=== PATIENT | male | born 1930 | race Hispanic/Latino ===

== ENCOUNTER 2017-09-01 10:50 | Emergency (ER) | payer MEDICARE ==
[2017-09-01 10:50] VITALS: PULSE 110; BMI 24.3
--- NOTE | 2017-09-01 11:20 | ED PDOC ---
Arrival/HPI - General Historian: Patient - History of Present Illness Time/Duration: 4-6 hours Symptom Onset: Sudden Symptom Course: Worsening - General Chief Complaint: GI Problem Time Seen by Provider: 09/01/17 11:10 - History of Present Illness Narrative History of Present Illness (Text): 09/01/17 12:16 CC: constipation and urinary retention Patient states he usually goes to the bathroom twice a day and lately has been having more watery bowel movements. Patient states he hard a small hard bowel movement at 4am this morning and then has not been able to urinate since. Patient states his last colonoscopy was awhile ago and they found polyps. Patient also states he goes to Dr. Bolanos and had free PSA read that was in 50s. Patient denied abdominal surgeries. Patient denies fever, chills, nausea, vomiting, diarrhea Patient admits to abdominal pain and pressure in pelvic region PMH: CAD, , HTN, DM2, Asthma and Arthritis had triple-vessel CABG, aortic valve replacement and insertion of Mitral Valve ring at [facility] ( November 02, 2014 for symptomatic heart failure), enlarged prostate, colon polyps Family history: cancer (Radha Villegas) Past Medical History - Provider Review Nursing Documentation Reviewed: Yes - Infectious Disease Hx of Infectious Diseases: None - Tetanus Immunization Tetanus Immunization: Unknown - Cardiac Hx Pacemaker: No - Pulmonary Hx Asthma: Yes - Neurological Hx Paralysis: No - HEENT Hx HEENT Disorder: No - Renal Hx Renal Disorder: No - Endocrine/Metabolic Hx Diabetes Mellitus Type 2: Yes - Hematological/Oncological Hx Blood Transfusions: No Hx Blood Transfusion Reaction: No - Integumentary Hx Dermatological Disorder: No - Musculoskeletal/Rheumatological Hx Musculoskeletal Disorders: Yes - Gastrointestinal Hx Gastrointestinal Disorders: No - Genitourinary/Gynecological Hx Genitourinary Disorders: No - Psychiatric Hx Emotional Abuse: No Hx Physical Abuse: No Hx Substance Use: No - Surgical History Hx Coronary Artery Bypass Graft: Yes - Anesthesia Hx Anesthesia Reactions: No Hx Malignant Hyperthermia: No - Suicidal Assessment Feels Threatened In Home Enviroment: No Family/Social History - Physician Review Nursing Documentation Reviewed: Yes Family/Social History: Unknown Family HX Smoking Status: Never Smoked Hx Alcohol Use: No Hx Substance Use: No Allergies/Home Meds Allergies/Adverse Reactions: Allergies No Known Allergies Allergy (Verified 09/01/17 11:33) Home Medications: Home Meds Medication Instructions Recorded Confirmed Atorvastatin Calcium [Lipitor] 10 mg PO QPM 10/12/14 02/08/17 Losartan [Cozaar] 50 mg PO QPM 10/12/14 02/08/17 [place]-3 Fatty Acids/Fish Oil [Fish 3 cap PO DAILY 10/26/14 02/08/17 Oil 1,000 mg Capsule] Aspirin [Ecotrin] 81 mg PO DAILY 02/10/16 05/11/16 Calcium Cit/Mgox/Vit D3/B6/Min 1 each PO BID 02/10/16 02/08/17 [Calcium Citrate Plus Tablet] Magnesium Oxide/Magnesium 300 mg PO DAILY 02/10/16 02/08/17 [Magnesium Elemental] Metoprolol Tartrate [Lopressor] 25 mg PO QPM 02/10/16 02/08/17 Metoprolol Tartrate [Lopressor] 37.5 mg PO QAM 02/10/16 02/08/17 SITagliptin [Januvia] 100 mg PO QAM 02/10/16 02/08/17 metFORMIN [glucOPHAGE] 500 mg PO BID 02/10/16 02/08/17 Review of Systems - Review of Systems Constitutional: absent: Fatigue, Weight Change, Fevers, Night Sweats Eyes: absent: Vision Changes, Photophobia, Eye Pain ENT: absent: Hearing Changes, Tinnitus, TMJ Pain Respiratory: absent: SOB, Cough, Sputum, Wheezing Cardiovascular: absent: Chest Pain, Palpitations, Edema Gastrointestinal: Abdominal Pain, Stool Changes, Constipation. absent: Diarrhea , Nausea, Vomiting, Appetite Changes, Hematochezia, Hematemesis, Anorexia, Food Intolerance Genitourinary Male: Urinary Output Changes Musculoskeletal: absent: Arthralgias, Back Pain, Neck Pain, Joint Swelling Skin: absent: Rash, Pruritis, Skin Lesions, Laceration, Abscess Neurological: absent: Headache, Dizziness, Focal Weakness Endocrine: absent: Diaphoresis, Polyuria, Polydipsia Physical Exam Vital Signs Reviewed: Yes Temperature: Afebrile Blood Pressure: Normal Pulse: Regular Respiratory Rate: Normal Appearance: Positive for: Uncomfortable Pain Distress: Moderate Mental Status: Positive for: Alert and Oriented X 3. No: Confused, Agitated, Lethargic - Systems Exam Head: Present: Atraumatic, Normocephalic Pupils: Present: PERRL Extroacular Muscles: Present: EOMI Conjunctiva: Present: Normal Mouth: Present: Moist Mucous Membranes. No: Dry, Drooling, Trismus Pharnyx: Present: Normal. No: ERYTHEMA, EXUDATE, TONSILS ENLARGED Nose (External): Present: Atraumatic. No: Abrasion, Contusion, Laceration Neck: Present: Normal Range of Motion, Trachea Midline. No: Meningeal Signs, MIDLINE TENDERNESS, JVD Respiratory/Chest: Present: Clear to Auscultation, Good Air Exchange. No: Respiratory Distress, Accessory Muscle Use Cardiovascular: Present: Regular Rate and Rhythm, Normal S1, S2. No: Murmurs Abdomen: Present: Tenderness (right lower and left lower quadrant), Distention. No: Normal Bowel Sounds (hypoactive bowel sounds in all four quadrants) Back: No: CVA Tenderness, Midline Tenderness, Paraspinal Tenderness Upper Extremity: Present: Normal Inspection, Normal ROM, NORMAL PULSES, Capillary Refill < 2s. No: Edema Lower Extremity: Present: Normal Inspection, NORMAL PULSES, Normal ROM, Capillary Refill < 2 s. No: Edema Neurological: Present: GCS=15, CN II-XII Intact, Speech Normal, Motor Func Grossly Intact, Normal Sensory Function Skin: Present: Warm, Normal Color. No: Dry, Rashes Psychiatric: Present: Alert, Oriented x 3, Normal Insight, Normal Concentration Medical Decision Making ED Course and Treatment: 09/01/17 12:22 insertion of toro, 750cc initial output 09/01/17 12:24 Patient's abdomen re-evaluated, the pressure is much less, no guarding, abdomen still feels distended due to constipation Miralax 17gm ordered NS @50cc/hr High Fiber diet by [facility] Printed and handed to patient. (Radha Villegas) Seen and examined with resident. 87 y/o M c PMHx BPH p/w urinary retention with constipation. Patient was recently on a cough medication which possibly had codeine in it. Patient without abdominal surgeries in past, vomiting, or fever. Toro placed with significant amount of nonbloody urine drained. Afterwards, no abdominal tenderness, no rebound, no guarding. Patient has follow up scheduled with urology Dr. Jeffries. Instructed to return to ED for worsening abdominal pain or vomiting or fever. (Jon Grajeda) - Medication Orders Current Medication Orders: Discontinued Medications Docusate Sodium (Colace Liquid) 100 mg PO ONCE ONE Stop: 09/01/17 12:21 Last Admin: 09/01/17 12:38 Dose: 100 mg Sodium Chloride (Sodium Chloride 0.9%) 1,000 mls @ 50 mls/hr IV .Q20H MERY Last Admin: 09/01/17 12:39 Dose: 50 mls/hr eMAR Start Stop Document 09/01/17 12:39 LA (Rec: 09/01/17 12:39 LA [facility]-[id number]) Intravenous Solution Start Date 09/01/17 Start Time 12:39 Metoclopramide HCl (Reglan) 10 mg PO STAT STA Stop: 09/01/17 11:57 Last Admin: 09/01/17 12:38 Dose: 10 mg Polyethylene Glycol (Miralax) 17 gm PO STAT STA Stop: 09/01/17 11:56 Disposition/Present on Arrival - Present on Arrival Any Indicators Present on Arrival: No History of DVT/PE: No History of Uncontrolled Diabetes: No Urinary Catheter: No History Surgical Site Infection Following: None - Disposition Have Diagnosis and Disposition been Completed?: Yes Disposition Time: 12:37 Patient Plan: Discharge - Disposition Diagnosis: BPH (benign prostatic hyperplasia), Constipation, Urinary retention due to benign prostatic hyperplasia Disposition: HOME/ ROUTINE Patient Problems: Current Active Problems Problem Status Onset BPH (benign prostatic hyperplasia) Acute Constipation Acute Urinary retention due to benign prostatic hyperplasia Acute Condition: IMPROVED Print Language: DIVEHI Additional Instructions: follow up with Urologist Dr. Jeffries to remove toro and further management of enlarged prostate follow up with Dr. Juarez for further workup for management of constipation eat foods high in fiber return to ED if fever, chills, nausea, vomiting, weakness, extreme abdominal pain, blood in urine and blood in stool drink fluids, drink fluids with electrolytes Prescriptions: Docusate Sodium [Colace] 100 mg PO TID #9 capsule Polyethylene Glycol 3350 [Miralax] 119 gm PO TID PRN #1 powder PRN Reason: Constipation Referrals: Jose Moreland MD [Primary Care Provider] - Follow up with primary Forms: [employer] (Polish)
[2017-09-01] MEDS ORDERED: Bisacodyl 5mg EC Tab PO ONE (12:20)
[2017-09-01] MEDS: Sodium Chloride 0.9% 1,000 ML IV SCH (12:39)
[2017-09-01] MEDS: POLYETHYLENE GLYCOL 3350 17 GM/Dose PACKET PO STA (12:55)
== END 2017-09-01 13:29 | disposition home or self-care (01) ==
LOC: ED 10:50
DX: N40.1 Benign prostatic hyperplasia with lower urinary tract symptoms (principal); R33.8 Other retention of urine; K59.00 Constipation, unspecified
CPT/HCPCS: 99283; J7040

== ENCOUNTER 2017-09-06 01:35 | Emergency (ER) | payer MEDICARE ==
[2017-09-06 01:35] VITALS: PULSE 110; BMI 23.5
--- NOTE | 2017-09-06 01:55 | ED PDOC ---
Arrival/HPI - General Chief Complaint: Male Genitourinary Time Seen by Provider: 09/06/17 01:48 Historian: Patient - History of Present Illness Narrative History of Present Illness (Text): 09/06/17 01:54 Hayder Butts is an 87 year old male, with a past medical history includes BPH , who presents to the Emergency department complaining of urinary retention. Patient has a toro in place, but notes it has not drained any urine and leg bag is empty. Patient denies any fever, chills, nausea, vomiting, diarrhea, dysuria, back pain, or any other complaints. Time/Duration: Other (yesterday) Symptom Onset: Gradual Symptom Course: Unchanged Activities at Onset: Light Context: Home Past Medical History - Provider Review Nursing Documentation Reviewed: Yes - Past History Past History: Non-Contributing - Infectious Disease Hx of Infectious Diseases: None - Tetanus Immunization Tetanus Immunization: Unknown - Past Medical History Past Medical History: Non-Contributing - Cardiac Hx Hypertension: Yes Hx Pacemaker: No - Pulmonary Hx Asthma: Yes - Neurological Hx Paralysis: No - HEENT Hx HEENT Disorder: No - Renal Hx Renal Disorder: No - Endocrine/Metabolic Hx Diabetes Mellitus Type 2: Yes - Hematological/Oncological Hx Blood Transfusions: No Hx Blood Transfusion Reaction: No - Integumentary Hx Dermatological Disorder: No - Musculoskeletal/Rheumatological Hx Musculoskeletal Disorders: Yes - Gastrointestinal Hx Gastrointestinal Disorders: No - Genitourinary/Gynecological Hx Genitourinary Disorders: Yes Hx Prostate Problems: Yes - Psychiatric Hx Emotional Abuse: No Hx Physical Abuse: No Hx Substance Use: No - Surgical History Hx Coronary Artery Bypass Graft: Yes - Anesthesia Hx Anesthesia: Yes Hx Anesthesia Reactions: No Hx Malignant Hyperthermia: No - Suicidal Assessment Feels Threatened In Home Enviroment: No Family/Social History - Physician Review Nursing Documentation Reviewed: Yes Family/Social History: Unknown Family HX Smoking Status: Never Smoked Hx Alcohol Use: No Hx Substance Use: No Allergies/Home Meds Allergies/Adverse Reactions: Allergies No Known Allergies Allergy (Verified 09/06/17 01:55) Home Medications: Home Meds Medication Instructions Recorded Confirmed Atorvastatin Calcium [Lipitor] 10 mg PO QPM 10/12/14 09/06/17 Losartan [Cozaar] 50 mg PO QPM 10/12/14 09/06/17 [place]-3 Fatty Acids/Fish Oil [Fish 3 cap PO DAILY 10/26/14 09/06/17 Oil 1,000 mg Capsule] Aspirin [Ecotrin] 81 mg PO DAILY 02/10/16 09/06/17 Calcium Cit/Mgox/Vit D3/B6/Min 1 each PO BID 02/10/16 09/06/17 [Calcium Citrate Plus Tablet] Magnesium Oxide/Magnesium 300 mg PO DAILY 02/10/16 09/06/17 [Magnesium 300 mg Capsule] Metoprolol Tartrate [Lopressor] 25 mg PO QPM 02/10/16 09/06/17 Metoprolol Tartrate [Lopressor] 37.5 mg PO QAM 02/10/16 09/06/17 SITagliptin [Januvia] 100 mg PO QAM 02/10/16 09/06/17 Review of Systems - Physician Review All systems were reviewed & negative as marked: Yes - Review of Systems Constitutional: Normal. absent: Fevers Eyes: Normal ENT: Normal Respiratory: Normal. absent: SOB Cardiovascular: Normal. absent: Chest Pain Gastrointestinal: Normal Genitourinary Male: Urinary Output Changes (+urinary retention). absent: Dysuria Musculoskeletal: Normal. absent: Back Pain, Neck Pain Skin: Normal. absent: Rash Neurological: Normal. absent: Headache, Dizziness Endocrine: Normal Hemo/Lymphatic: Normal Psychiatric: Normal Physical Exam Vital Signs Reviewed: Yes Vital Signs Pulse Resp BP Pulse Ox 09/06/17 04:38 71 18 166/99 H 100 09/06/17 01:56 77 20 219/98 H 100 Temperature: Afebrile Blood Pressure: Hypertensive Pulse: Regular Respiratory Rate: Normal Appearance: Positive for: Well-Appearing, Non-Toxic Pain Distress: None Mental Status: Positive for: Alert and Oriented X 3 - Systems Exam Head: Present: Atraumatic, Normocephalic Pupils: Present: PERRL Extroacular Muscles: Present: EOMI Conjunctiva: Present: Normal Mouth: Present: Moist Mucous Membranes Neck: Present: Normal Range of Motion Respiratory/Chest: Present: Clear to Auscultation, Good Air Exchange. No: Respiratory Distress, Accessory Muscle Use Cardiovascular: Present: Regular Rate and Rhythm, Normal S1, S2. No: Murmurs Abdomen: Present: Normal Bowel Sounds. No: Tenderness, Distention, Peritoneal Signs Genitourinary Male: Present: Other (Toro catheter in place) Back: Present: Normal Inspection Upper Extremity: Present: Normal Inspection. No: Cyanosis, Edema Lower Extremity: Present: Normal Inspection. No: Edema Neurological: Present: GCS=15, CN II-XII Intact, Speech Normal Skin: Present: Warm, Dry, Normal Color. No: Rashes Psychiatric: Present: Alert, Oriented x 3, Normal Insight, Normal Concentration Medical Decision Making ED Course and Treatment: 09/06/17 01:55 Impression: 87 year old male presents to the emergency department with urinary retention. Toro catheter in place not draining urine. Plan: -- Toro catheter -- Reassess and disposition Prior Visits: Notes and results from previous visits were reviewed. On 09/03/2017, pt was seen in the Emergency department for urinary retention and constipation. Pt was admitted to the hospital for further evaluation. Progress Notes: Toro catheter flushed with normal saline by RN. Clots removed, draining 600 cc of urine. Pt tolerated procedure well, reports relief. 09/06/17 06:27 On re-evaluation, patient feels better and is in no acute distress. Patient is stable for discharge. Patient was instructed to follow up with physician or return if symptoms worsen or new concerning symptoms arise. - Scribe Statement The provider has reviewed the documentation as recorded by the Kaila Granados training under Jewels Rinaldi All medical record entries made by the Scribe were at my direction and personally dictated by me. I have reviewed the chart and agree that the record accurately reflects my personal performance of the history, physical exam, medical decision making, and the department course for this patient. I have also personally directed, reviewed, and agree with the discharge instructions and disposition. Disposition/Present on Arrival - Present on Arrival Any Indicators Present on Arrival: No History of DVT/PE: No History of Uncontrolled Diabetes: No Urinary Catheter: No History Surgical Site Infection Following: None - Disposition Have Diagnosis and Disposition been Completed?: Yes Diagnosis: Urinary retention Disposition: HOME/ ROUTINE Disposition Time: 06:32 Condition: GOOD Discharge Instructions (ExitCare): Urinary Retention in Men (ED), Toro Catheter Placement and Care (ED) Prescriptions: Ciprofloxacin HCl [Cipro] 250 mg PO BID #14 tab Tamsulosin [Flomax] 0.4 mg PO DAILY #30 cap Finasteride [Proscar] 5 mg PO DAILY #30 tab Referrals: Jose Moreland MD [Primary Care Provider] - Follow up with primary Forms: [employer] (Ethiopian)
[2017-09-06 01:59] VITALS: O2SAT 100
[2017-09-06 04:39] VITALS: BP 166/99; PULSE 71; RESP 18
== END 2017-09-06 07:10 | disposition home or self-care (01) ==
LOC: ED 01:35
DX: N40.1 Benign prostatic hyperplasia with lower urinary tract symptoms (principal); R33.8 Other retention of urine; I10 Essential (primary) hypertension; E11.9 Type 2 diabetes mellitus without complications

== ENCOUNTER 2017-09-08 02:24 | Emergency (ER) | payer MEDICARE ==
[2017-09-08 02:27] VITALS: PULSE 110; BMI 23.5
[2017-09-08] MEDS ORDERED: Morphine 4 mg/ml ISec IVP STA (02:48)
--- NOTE | 2017-09-08 02:49 | ED PDOC ---
Arrival/HPI - General Chief Complaint: Male Genitourinary Time Seen by Provider: 09/08/17 02:38 Historian: Patient - History of Present Illness Narrative History of Present Illness (Text): 09/08/17 02:48 Hayder Butts is an 87 year old male, whose past medical history includes BPH , diabetes, hypertension, and CABG, who presents to the Emergency department complaining of urinary retention. Patient recently had a Toro catheter removed by his urologist yesterday, but states he has been unable to urinate since 20: 00. Patient also reports associated suprapubic pain. Patient denies any fever, chills, nausea, vomiting, diarrhea, dysuria, back pain, or any other complaints. Time/Duration: 4-6 hours Symptom Onset: Gradual Symptom Course: Unchanged Activities at Onset: Light Context: Home Past Medical History - Provider Review Nursing Documentation Reviewed: Yes - Past History Past History: Non-Contributing - Infectious Disease Hx of Infectious Diseases: None - Tetanus Immunization Tetanus Immunization: Unknown - Past Medical History Past Medical History: Non-Contributing - Cardiac Hx Hypertension: Yes Hx Pacemaker: No - Pulmonary Hx Asthma: Yes - Neurological Hx Paralysis: No - HEENT Hx HEENT Disorder: No - Renal Hx Renal Disorder: No - Endocrine/Metabolic Hx Diabetes Mellitus Type 2: Yes - Hematological/Oncological Hx Blood Transfusions: No Hx Blood Transfusion Reaction: No - Integumentary Hx Dermatological Disorder: No - Musculoskeletal/Rheumatological Hx Musculoskeletal Disorders: Yes - Gastrointestinal Hx Gastrointestinal Disorders: No - Genitourinary/Gynecological Hx Genitourinary Disorders: Yes Hx Prostate Problems: Yes - Psychiatric Hx Emotional Abuse: No Hx Physical Abuse: No Hx Substance Use: No - Surgical History Hx Coronary Artery Bypass Graft: Yes - Anesthesia Hx Anesthesia: Yes Hx Anesthesia Reactions: No Hx Malignant Hyperthermia: No - Suicidal Assessment Feels Threatened In Home Enviroment: No Family/Social History - Physician Review Nursing Documentation Reviewed: Yes Family/Social History: Unknown Family HX Smoking Status: Never Smoked Hx Alcohol Use: No Hx Substance Use: No Allergies/Home Meds Allergies/Adverse Reactions: Allergies No Known Allergies Allergy (Verified 09/06/17 01:55) Home Medications: Home Meds Medication Instructions Recorded Confirmed Atorvastatin Calcium [Lipitor] 10 mg PO QPM 10/12/14 09/08/17 Losartan [Cozaar] 50 mg PO QPM 10/12/14 09/08/17 [place]-3 Fatty Acids/Fish Oil [Fish 3 cap PO DAILY 10/26/14 09/08/17 Oil 1,000 mg Capsule] Aspirin [Ecotrin] 81 mg PO DAILY 02/10/16 09/08/17 Calcium Cit/Mgox/Vit D3/B6/Min 1 each PO BID 02/10/16 09/08/17 [Calcium Citrate Plus Tablet] Magnesium Oxide/Magnesium 300 mg PO DAILY 02/10/16 09/08/17 [Magnesium 300 mg Capsule] Metoprolol Tartrate [Lopressor] 25 mg PO QPM 02/10/16 09/08/17 Metoprolol Tartrate [Lopressor] 37.5 mg PO QAM 02/10/16 09/08/17 SITagliptin [Januvia] 100 mg PO QAM 02/10/16 09/08/17 Review of Systems - Physician Review All systems were reviewed & negative as marked: Yes - Review of Systems Constitutional: Normal. absent: Fevers Eyes: Normal ENT: Normal Respiratory: Normal. absent: SOB, Cough Cardiovascular: Normal. absent: Chest Pain Gastrointestinal: Abdominal Pain. absent: Diarrhea, Nausea, Vomiting Genitourinary Male: Urinary Output Changes (+urinary retention) Musculoskeletal: Normal Skin: Normal. absent: Rash Neurological: Normal. absent: Headache, Dizziness Endocrine: Normal Hemo/Lymphatic: Normal Psychiatric: Normal Physical Exam Vital Signs Reviewed: Yes Vital Signs Temp Pulse Resp BP Pulse Ox 09/08/17 05:43 98.1 F 68 17 148/78 98 09/08/17 02:35 97.9 F 74 18 193/105 H 100 Temperature: Afebrile Blood Pressure: Hypertensive Pulse: Regular Respiratory Rate: Normal Appearance: Positive for: Well-Appearing, Non-Toxic, Comfortable Pain Distress: None Mental Status: Positive for: Alert and Oriented X 3 - Systems Exam Head: Present: Atraumatic, Normocephalic Pupils: Present: PERRL Extroacular Muscles: Present: EOMI Conjunctiva: Present: Normal Mouth: Present: Moist Mucous Membranes Neck: Present: Normal Range of Motion Respiratory/Chest: Present: Clear to Auscultation, Good Air Exchange. No: Respiratory Distress, Accessory Muscle Use Cardiovascular: Present: Regular Rate and Rhythm, Normal S1, S2. No: Murmurs Abdomen: Present: Tenderness (Suprapubic tenderness), Normal Bowel Sounds. No: Distention, Peritoneal Signs Back: Present: Normal Inspection Upper Extremity: Present: Normal Inspection. No: Cyanosis, Edema Lower Extremity: Present: Normal Inspection. No: Edema Neurological: Present: GCS=15, CN II-XII Intact, Speech Normal Skin: Present: Warm, Dry, Normal Color. No: Rashes Psychiatric: Present: Alert, Oriented x 3, Normal Insight, Normal Concentration Medical Decision Making ED Course and Treatment: 09/08/17 02:48 Impression: 87 year old male complaining of urinary retention since 20:00. Plan: -- Labs -- Urinalysis -- Morphine -- Toro catheter insertion -- Reassess and disposition Prior Visits: Notes and results from previous visits were reviewed. On , pt was seen in the Emergency department for urinary retention/ toro catheter obstruction. Pt was d/c home. Progress Notes: Toro catheter placed by RN, drained 800cc of urine. Pt tolerated procedure without difficulty. 09/08/17 04:22 On re-evaluation, pt feels better after Toro insertion. Pt already on antibiotics from recent previous visit. Patient is stable for discharge. Patient was instructed to follow up with physician/urologist or return if symptoms worsen or new concerning symptoms arise. 09/08/17 05:53 cr improved from previuos h/h stable. advise outpt fu already on cipro - Lab Interpretations Lab Results: 09/08/17 03:09 09/08/17 03:09 Lab Results 09/08/17 03:09: Sodium 141, Potassium 5.2 H, Chloride 105, Carbon Dioxide 25, Anion Gap 16, BUN 36 H, Creatinine 1.5, Est GFR ( Amer) 54, Est GFR (Non- Af Amer) 44, Random Glucose 125 H, Calcium 9.9, Total Bilirubin 0.4, AST 43, ALT 29, Alkaline Phosphatase 52, Total Protein 7.5, Albumin 4.0, Globulin 3.5, Albumin/Globulin Ratio 1.1 09/08/17 03:09: WBC 6.5, RBC 3.29 L, Hgb 9.7 L, Hct 29.9 L, MCV 90.9, MCH 29.5, MCHC 32.4, RDW 14.4, Plt Count 238, MPV 9.1, Gran % 64.2, Lymph % (Auto) 24.5, [place] % (Auto) 7.2 H, Eos % (Auto) 3.5, Baso % (Auto) 0.6, Gran # 4.20, Lymph # ( Auto) 1.6, [place] # (Auto) 0.5, Eos # (Auto) 0.2, Baso # (Auto) 0.04 I have reviewed the lab results: Yes - Medication Orders Current Medication Orders: Discontinued Medications Morphine Sulfate (Morphine) 4 mg IVP STAT STA Stop: 09/08/17 02:49 Last Admin: 09/08/17 03:26 Dose: 4 mg MAR Pain Assessment Document 09/08/17 03:26 IT (Rec: 09/08/17 03:27 IT [id number]) Pain Reassessment Is this a pain reassessment? No Sleep Is patient sleeping during reassessment? No Presence of Pain Presence of Pain No Pain Scale Used Pain Scale Used Numeric IVP Administration Document 09/08/17 03:26 IT (Rec: 09/08/17 03:27 IT [id number]) Charges for Administration # of IVP Administrations 1 - Scribe Statement The provider has reviewed the documentation as recorded by the Luiibangeles Rinaldi Provider Scribe Attestation: All medical record entries made by the Scribe were at my direction and personally dictated by me. I have reviewed the chart and agree that the record accurately reflects my personal performance of the history, physical exam, medical decision making, and the department course for this patient. I have also personally directed, reviewed, and agree with the discharge instructions and disposition. Disposition/Present on Arrival - Present on Arrival Any Indicators Present on Arrival: No History of DVT/PE: No History of Uncontrolled Diabetes: No Urinary Catheter: No History of Decub. Ulcer: No History Surgical Site Infection Following: None - Disposition Have Diagnosis and Disposition been Completed?: Yes Diagnosis: Urinary retention Disposition: HOME/ ROUTINE Disposition Time: 05:00 Condition: STABLE Discharge Instructions (ExitCare): Urinary Retention in Men (ED) Additional Instructions: follow up with your urologist. return to er with worsening symptoms or concerns Referrals: Andrzej Jeffries MD [Staff Provider] - Follow up with primary Forms: [employer] (Latvian)
[2017-09-08 03:38] LABS: ALB/GLOB RATIO 1.1 (1.1-1.8); CALCIUM 9.9 mg/dL (8.4-10.5)
[2017-09-08 03:46] LABS: BASO # 0.04 K/mm3 (0.0-2.0); BASO % 0.6 % (0.0-3.0); EOS # 0.2 (0.0-0.7); EOS % 3.5 % (1.5-5.0); GRAN # 4.2 (1.4-6.5); GRAN % 64.2 % (50.0-68.0); HEMOGLOBIN 9.7 g/dL (14.0-18.0); LYMPH # 1.6 (1.2-3.4); LYMPH % 24.5 % (22.0-35.0); MEAN CELL VOLUME 90.9 fl (80.0-105.0); MEAN CORPUSCULAR HEMOGLOBIN 29.5 pg (25.0-35.0); MEAN CORPUSCULAR HGB CONC 32.4 g/dl (31.0-37.0); MEAN PLATELET VOLUME 9.1 fl (7.0-11.0); MONO # 0.5 (0.1-0.6); MONO % 7.2 % (1.0-6.0); RBC 3.29 10^6/uL (3.5-6.1); RED CELL DISTRIBUTION WIDTH 14.4 % (11.5-14.5); WHITE BLOOD COUNT 6.5 10^3/ul (4.5-11.0)
[2017-09-08 05:47] VITALS: BP 148/78; PULSE 68; RESP 17; TEMP 98.1; O2SAT 98
== END 2017-09-08 05:43 | disposition home or self-care (01) ==
LOC: ED 02:24
DX: R33.9 Retention of urine, unspecified (principal)
CPT/HCPCS: 80053; 85025; 96374; 99285; J2270

== ENCOUNTER 2017-09-13 18:12 | Emergency (ER) | payer MEDICARE ==
[2017-09-13 18:12] VITALS: PULSE 110; BMI 23.5
[2017-09-13 18:28] VITALS: RESP 18; TEMP 97.4
--- NOTE | 2017-09-13 19:58 | ED PDOC ---
Arrival/HPI - General Chief Complaint: Male Genitourinary Time Seen by Provider: 09/13/17 19:41 Historian: Patient - History of Present Illness Narrative History of Present Illness (Text): 09/13/17 19:52 Hayder Butts is an 87 year old male, whose past medical history includes BPH, diabetes, hypertension, and CABG, who presents to the emergency department complaining difficulty urinating due to a blocked toro for a few hours. Patient states that he last drained the toro catheter at 15:00 this afternoon but it stopped draining. No other complaints at this time. Time/Duration: 4-6 hours Symptom Onset: Gradual Symptom Course: Unchanged Activities at Onset: Light Context: Home Past Medical History - Provider Review Nursing Documentation Reviewed: Yes - Past History Past History: Non-Contributing - Infectious Disease Hx of Infectious Diseases: None - Tetanus Immunization Tetanus Immunization: Unknown - Past Medical History Past Medical History: Non-Contributing - Cardiac Hx Hypertension: Yes - Pulmonary Hx Asthma: Yes - Neurological Hx Paralysis: No - HEENT Hx HEENT Disorder: No - Renal Hx Renal Disorder: No - Endocrine/Metabolic Hx Diabetes Mellitus Type 2: Yes - Hematological/Oncological Hx Blood Transfusions: No Hx Blood Transfusion Reaction: No - Integumentary Hx Dermatological Disorder: No - Musculoskeletal/Rheumatological Hx Musculoskeletal Disorders: Yes - Gastrointestinal Hx Gastrointestinal Disorders: No - Genitourinary/Gynecological Hx Genitourinary Disorders: Yes Hx Prostate Problems: Yes - Psychiatric Hx Substance Use: No - Surgical History Hx Coronary Artery Bypass Graft: Yes - Anesthesia Hx Anesthesia: Yes Hx Anesthesia Reactions: No Hx Malignant Hyperthermia: No - Suicidal Assessment Feels Threatened In Home Enviroment: No Family/Social History - Physician Review Nursing Documentation Reviewed: Yes Family/Social History: No Known Family HX Smoking Status: Never Smoked Hx Alcohol Use: No Hx Substance Use: No Allergies/Home Meds Allergies/Adverse Reactions: Allergies No Known Allergies Allergy (Verified 09/06/17 01:55) Home Medications: Home Meds Medication Instructions Recorded Confirmed Atorvastatin Calcium [Lipitor] 10 mg PO QPM 10/12/14 09/08/17 Losartan [Cozaar] 50 mg PO QPM 10/12/14 09/08/17 [place]-3 Fatty Acids/Fish Oil [Fish 3 cap PO DAILY 10/26/14 09/08/17 Oil 1,000 mg Capsule] Aspirin [Ecotrin] 81 mg PO DAILY 02/10/16 09/08/17 Calcium Cit/Mgox/Vit D3/B6/Min 1 each PO BID 02/10/16 09/08/17 [Calcium Citrate Plus Tablet] Magnesium Oxide/Magnesium 300 mg PO DAILY 02/10/16 09/08/17 [Magnesium 300 mg Capsule] Metoprolol Tartrate [Lopressor] 25 mg PO QPM 02/10/16 09/08/17 Metoprolol Tartrate [Lopressor] 37.5 mg PO QAM 02/10/16 09/08/17 SITagliptin [Januvia] 100 mg PO QAM 02/10/16 09/08/17 Review of Systems - Physician Review All systems were reviewed & negative as marked: Yes - Review of Systems Constitutional: absent: Fevers, Night Sweats Eyes: absent: Vision Changes ENT: absent: Hearing Changes Respiratory: absent: SOB, Cough Cardiovascular: absent: Chest Pain Gastrointestinal: absent: Abdominal Pain Genitourinary Male: Other (difficulty urinating) Musculoskeletal: absent: Arthralgias Skin: absent: Rash, Pruritis Neurological: absent: Headache Endocrine: absent: Diaphoresis Hemo/Lymphatic: absent: Adenopathy Psychiatric: absent: Anxiety Physical Exam Vital Signs Reviewed: Yes Vital Signs Temp Pulse Resp BP Pulse Ox 09/13/17 20:46 18 L 18 156/74 H 99 09/13/17 18:12 97.4 F L 64 18 170/86 H 98 Blood Pressure: Hypertensive Pulse: Regular Respiratory Rate: Normal Pain Distress: Mild Mental Status: Positive for: Alert and Oriented X 3 - Systems Exam Head: Present: Atraumatic, Normocephalic Pupils: Present: PERRL Extroacular Muscles: Present: EOMI Conjunctiva: Present: Normal Mouth: Present: Moist Mucous Membranes Neck: Present: Normal Range of Motion Respiratory/Chest: Present: Clear to Auscultation, Good Air Exchange. No: Respiratory Distress, Accessory Muscle Use Cardiovascular: Present: Regular Rate and Rhythm, Normal S1, S2. No: Murmurs Abdomen: Present: Distention (abdomen mildly distended) Genitourinary Male: Present: Other (toro catheter not draining) Back: Present: Normal Inspection Upper Extremity: Present: Normal Inspection. No: Cyanosis, Edema Lower Extremity: Present: Normal Inspection. No: Edema Neurological: Present: GCS=15, CN II-XII Intact, Speech Normal Skin: Present: Warm, Dry, Normal Color. No: Rashes Psychiatric: Present: Alert, Oriented x 3, Normal Insight, Normal Concentration Medical Decision Making ED Course and Treatment: 09/13/17 20:02 Impression: 87 year old male complaining difficulty urinating due to a blocked toro for a few hours. Differential Diagnosis included but are not limited to: Plan: -- Reassess and disposition Prior Visits: Notes and results from previous visits were reviewed. Patient was last seen in the emergency department on 09/08/17 for urinary retention. Patient was discharged home. Progress Notes: 09/13/17 20:03 Toro catheter flushed with 1 liter of normal saline. Urine returned. 09/13/17 20:25 Toro now draining urine well. Has follow-up with Dr. Jeffries tomorrow morning. He has no complaint of fever or flank pain and has previously been on antibiotics. Catheter has been draining well until a few hours ago and patient now reports relief from all discomfort. - Scribe Statement The provider has reviewed the documentation as recorded by the Kaila Andrade Provider Scribe Attestation: All medical record entries made by the Kaila were at my direction and personally dictated by me. I have reviewed the chart and agree that the record accurately reflects my personal performance of the history, physical exam, medical decision making, and the department course for this patient. I have also personally directed, reviewed, and agree with the discharge instructions and disposition. Disposition/Present on Arrival - Present on Arrival Any Indicators Present on Arrival: No History of DVT/PE: No History of Uncontrolled Diabetes: No Urinary Catheter: No History of Decub. Ulcer: No History Surgical Site Infection Following: None - Disposition Have Diagnosis and Disposition been Completed?: Yes Diagnosis: Complication, blocked Toro catheter Disposition: HOME/ ROUTINE Disposition Time: 20:25 Patient Plan: Discharge Patient Problems: Current Active Problems Problem Status Onset Complication, blocked Toro catheter Acute Condition: GOOD Discharge Instructions (ExitCare): Toro Catheter Placement and Care (ED) Additional Instructions: Follow-up with your urologist Dr. Jeffries tomorrow morning. Return to ED if condition worsens. Follow-up with PMD within 2 days Referrals: Jose Moreland MD [Primary Care Provider] - Follow up with primary Forms: [employer] (Spanish)
[2017-09-13 20:47] VITALS: BP 156/74; PULSE 18; O2SAT 99
== END 2017-09-13 20:46 | disposition home or self-care (01) ==
LOC: ED 18:12
DX: T83.098A Other mechanical complication of other urinary catheter, initial encounter (principal); Y84.8 Other medical procedures as the cause of abnormal reaction of the patient, or of later complication, without mention of misadventure at the time of the procedure; Y92.89 Other specified places as the place of occurrence of the external cause

== ENCOUNTER 2017-10-11 07:12 | Day surgery (SDC) | payer MEDICARE ==
[2017-10-11 08:17] VITALS: BMI 23.5
[2017-10-11] MEDS ORDERED: Propofol 10 mg/ml Inj (20 ML) ONE (10:12)
[2017-10-11] MEDS ORDERED: Lidocaine 2% Jelly (Uro-Jet) ONE (10:22)
[2017-10-11] MEDS ORDERED: cefTRIAXone (Rocephin) 1 gm Inj ONE (10:22)
[2017-10-11] MEDS ORDERED: Sevoflurane - Inhalation Anesthetic Liq (250 ml) ONE (10:33)
[2017-10-11] MEDS ORDERED: Gentamicin 80 mg/2mL Inj. ONE (10:34)
[2017-10-11] MEDS ORDERED: Naloxone 0.4 mg/ml Inj (Adult) ONE (10:51)
[2017-10-11] MEDS ORDERED: Morphine 2 mg/ml ISec IVP PRN (11:58)
[2017-10-11] MEDS ORDERED: Lactated Ringer's 1,000 ML IV SCH (12:00)
[2017-10-11] MEDS ORDERED: Labetalol 5 mg/ml Inj 20ML IV STA (12:42)
[2017-10-11] MEDS ORDERED: Labetalol 5 mg/ml Inj 20ML ONE (12:43)
[2017-10-11] MEDS ORDERED: Labetalol 5 mg/ml Inj 20ML IV ONE (12:52)
[2017-10-11 13:35] VITALS: RESP 18; TEMP 97.5; O2SAT 99
[2017-10-11 13:54] VITALS: BP 182/72; PULSE 62
--- NOTE | 2017-10-12 08:12 | OP ---
PROCEDURE DATE: 10/11/2017 PREOPERATIVE DIAGNOSES: Urinary retention and bladder outlet obstruction. POSTOPERATIVE DIAGNOSES: Urinary retention and bladder outlet obstruction. PROCEDURES: A cystoscopy, ProTouch laser vaporization of prostate. ATTENDING SURGEON: Andrzej Jeffries MD ANESTHESIA: General. SPECIMENS: There were none. DRAINS: A 22-Kisw[place] 3-way Garcia catheter. COMPLICATIONS: There were none. OPERATIVE FINDINGS: After informed consent was obtained, the patient was taken to the operative room and placed on the operating table and anesthesia was administered. Patient received intravenous antibiotics prior to start of the procedure. A 21-Kiswahili cystoscope was placed in the patient's urethra and advanced proximally under direct vision until the bladder was entered. A full survey inspection of the bladder was then performed, which revealed no papillary bladder tumors. There was no bladder stones noted. There was grade II trabeculation noted. Ureteral orifices could not be identified as they were underlying a large median lobe of prostate, which was growing into the bladder covering the trigone. The scope was withdrawn to the level of the verumontanum. There was markedly enlarged lateral lobe growth as well causing obstruction. At this point, a ProTouch laser fiber was obtained. It was passed through the scope and laser vaporization of the prostate was begun. The obstructing tissue was removed using the laser, first starting with the median lobe which was lasered down to the bladder neck level. The lateral lobes were both then resected using the laser from the bladder neck region proximally to the level of the verumontanum distally. All the obstructing tissue of the lateral lobes were vaporized as well as apical tissue at the 12 o'clock position and inferior tissue at the 6 o'clock position. Any bleeding encountered during the vaporization was controlled using the ProTouch laser. After all the median lobe and lateral lobe tissue had been vaporized, review from the verumontanum revealed good hemostasis with a widely opened prostatic fossa. The bladder was inspected. There was small amount of debris, which was able to be removed with irrigation. A final inspection was then made. The channel appeared widely opened with good hemostasis. At this point, the scope was removed. A 22-Kisw[place] 3-way Garcia catheter was passed and placed to continuous bladder irrigation. The patient tolerated the procedure well and returned to the supine position and taken to the recovery room awake and in stable condition. Andrzej Jeffries MD [facility] # [id number]
== END 2017-10-11 17:15 | disposition home or self-care (01) ==
LOC: SDS 07:12
PROVIDERS: ATTEND Urology
DX: N32.0 Bladder-neck obstruction (principal); N40.1 Benign prostatic hyperplasia with lower urinary tract symptoms; R33.8 Other retention of urine; I25.10 Atherosclerotic heart disease of native coronary artery without angina pectoris; I38 Endocarditis, valve unspecified; I12.9 Hypertensive chronic kidney disease with stage 1 through stage 4 chronic kidney disease, or unspecified chronic kidney disease; E11.22 Type 2 diabetes mellitus with diabetic chronic kidney disease; N18.9 Chronic kidney disease, unspecified; D63.1 Anemia in chronic kidney disease; I25.2 Old myocardial infarction; Z95.2 Presence of prosthetic heart valve; Z95.1 Presence of aortocoronary bypass graft
CPT/HCPCS: 52648; J0690; J1580; J2270; J2310; J2405; J2704; J3010; J7120 ×2

== ENCOUNTER 2017-10-11 20:56 | Emergency (ER) | payer MEDICARE ==
[2017-10-11 20:57] VITALS: PULSE 110
[2017-10-11 21:07] VITALS: BMI 23.5
[2017-10-11 21:09] VITALS: TEMP 98.5
[2017-10-11 21:41] VITALS: RESP 18; O2SAT 98
[2017-10-11 22:44] LABS: BASO # 0.02 K/mm3 (0.0-2.0); BASO % 0.2 % (0.0-3.0); EOS # 0.2 (0.0-0.7); EOS % 1.9 % (1.5-5.0); GRAN # 7.38 (1.4-6.5); GRAN % 77.9 % (50.0-68.0); HEMOGLOBIN 9.3 g/dL (14.0-18.0); LYMPH # 1.4 (1.2-3.4); LYMPH % 14.5 % (22.0-35.0); MEAN CELL VOLUME 91.6 fl (80.0-105.0); MEAN CORPUSCULAR HEMOGLOBIN 29.9 pg (25.0-35.0); MEAN CORPUSCULAR HGB CONC 32.6 g/dl (31.0-37.0); MEAN PLATELET VOLUME 9.7 fl (7.0-11.0); MONO # 0.5 (0.1-0.6); MONO % 5.5 % (1.0-6.0); PH,URINE 6.5 (4.7-8.0); RBC 3.11 10^6/uL (3.5-6.1); RED CELL DISTRIBUTION WIDTH 14.8 % (11.5-14.5); URINE BILIRUBIN MODERATE (NEGATIVE); URINE BLOOD LARGE (NEGATIVE); URINE GLUCOSE (UA) NEGATIVE (NEGATIVE); URINE LEUKOCYTE ESTERASE MODERATE Leu/uL (NEGATIVE); URINE PROTEIN >=300 mg/dL (<30 mg/dL); WHITE BLOOD COUNT 9.5 10^3/ul (4.5-11.0)
[2017-10-11 22:50] LABS: URINE APPEARANCE CLOUDY (CLEAR); URINE COLOR RED (YELLOW)
[2017-10-11 22:54] LABS: INR 1.07 (0.93-1.08); PARTIAL THROMBOPLASTIN TIME 31.3 Seconds (25.1-36.5); PROTHROMBIN TIME 12.2 SECONDS (9.4-12.5)
[2017-10-11 22:56] LABS: ALB/GLOB RATIO 1.3 (1.1-1.8); ALBUMIN 3.7 g/dL (3.0-4.8); CALCIUM 9.6 mg/dL (8.4-10.5)
[2017-10-11 22:58] LABS: URINE BACTERIA MOD (NEG); URINE EPITHELIAL CELLS 0 - 2 /hpf (0-5); URINE RBC TNTC /hpf (0-2)
--- NOTE | 2017-10-11 23:28 | ED PDOC ---
Arrival/HPI - General Chief Complaint: Male Genitourinary Time Seen by Provider: 10/11/17 21:45 Historian: Patient - History of Present Illness Narrative History of Present Illness (Text): 10/11/17 23:28 87 year old male, whose past medical history includes diabetes, hypertension, CAD, Triple-vessel CABG, aortic valve replacement, enlarged prostate, colon polyps, and frequent visits to to the ER for urinary retention and s/p "one touch procedure" (TURP like procedure) by Dr. Jeffries earlier today and sent home with a leg bag. Patient presents now complaining of sanguinous urinary leakage around the toro and occasional bladder spasms. Patient denies any fever chills , or constitutional symptoms. Patient has changed his leg bag once since operation as is his normal urinary frequency and he denies any sort of urinary output change. PMD: Dr. Moreland Cardio: Dr. Marcum Nephro: Dr. Calderon 10/12/17 00:02 Symptom Onset: Sudden Symptom Course: Unchanged Activities at Onset: Light Context: Home Past Medical History - Provider Review Nursing Documentation Reviewed: Yes - Past History Past History: Non-Contributing - Infectious Disease Hx of Infectious Diseases: None - Tetanus Immunization Tetanus Immunization: Unknown - Past Medical History Past Medical History: Non-Contributing - Cardiac Hx Pacemaker: No - Pulmonary Hx Asthma: Yes - Neurological Hx Paralysis: No - HEENT Hx HEENT Disorder: No - Renal Hx Renal Disorder: No - Endocrine/Metabolic Hx Diabetes Mellitus Type 2: Yes - Hematological/Oncological Hx Blood Transfusions: Yes - Integumentary Hx Dermatological Disorder: No - Musculoskeletal/Rheumatological Hx Musculoskeletal Disorders: No - Gastrointestinal Hx Gastrointestinal Disorders: No - Genitourinary/Gynecological Hx Genitourinary Disorders: Yes Hx Prostate Problems: Yes - Psychiatric Hx Emotional Abuse: No Hx Physical Abuse: No Hx Substance Use: No - Surgical History Hx Coronary Artery Bypass Graft: Yes - Anesthesia Hx Anesthesia Reactions: No Hx Malignant Hyperthermia: No - Suicidal Assessment Feels Threatened In Home Enviroment: No Family/Social History - Physician Review Nursing Documentation Reviewed: Yes Family/Social History: No Known Family HX Smoking Status: Never Smoked Hx Alcohol Use: No Hx Substance Use: No Allergies/Home Meds Allergies/Adverse Reactions: Allergies No Known Allergies Allergy (Verified 10/11/17 21:07) Home Medications: Home Meds Medication Instructions Recorded Confirmed Atorvastatin Calcium [Lipitor] 20 mg PO QPM 10/12/14 10/11/17 Losartan [Cozaar] 50 mg PO QPM 10/12/14 10/11/17 [place]-3 Fatty Acids/Fish Oil [Fish 3 cap PO DAILY 10/26/14 10/11/17 Oil 1,000 mg Capsule] Aspirin [Ecotrin] 81 mg PO DAILY 02/10/16 10/11/17 Calcium Cit/Mgox/Vit D3/B6/Min 1 each PO BID 02/10/16 10/11/17 [Calcium Citrate Plus Tablet] Magnesium Oxide/Magnesium 300 mg PO DAILY 02/10/16 10/11/17 [Magnesium 300 mg Capsule] Metoprolol Tartrate [Lopressor] 25 mg PO QPM 02/10/16 10/11/17 Metoprolol Tartrate [Lopressor] 37.5 mg PO QAM 02/10/16 10/11/17 SITagliptin [Januvia] 50 mg PO QAM 02/10/16 10/11/17 Beta Carotene [Vitamin A] 25,000 units PO DAILY 09/28/17 10/11/17 Polyethylene Glycol 3350 [Miralax] 17 gm PO BID 09/28/17 10/11/17 Vitamin B Complex [B Complex] 1 tab PO DAILY 09/28/17 10/11/17 Vitamin E [Vitamin E] 200 units PO DAILY 09/28/17 10/11/17 Cefuroxime Susp [Ceftin] 500 mg PO BID 10/11/17 10/11/17 Review of Systems - Physician Review All systems were reviewed & negative as marked: Yes - Review of Systems Constitutional: absent: Fevers, Other (Chills) Eyes: Normal ENT: Normal Respiratory: Normal Cardiovascular: Normal Gastrointestinal: Normal Genitourinary Male: Other (sanguinius urinary leakage around the toro and occasional bladder spasms. ) Musculoskeletal: Normal Skin: Normal Neurological: Normal Endocrine: Normal Hemo/Lymphatic: Normal Psychiatric: Normal Physical Exam Vital Signs Reviewed: Yes Vital Signs Temp Pulse Resp BP Pulse Ox 10/11/17 21:40 73 18 149/62 98 10/11/17 21:08 98.5 F 81 20 160/68 H 97 Temperature: Afebrile Blood Pressure: Hypertensive Pulse: Regular Respiratory Rate: Normal Appearance: Positive for: Well-Appearing, Non-Toxic, Comfortable Pain Distress: None Mental Status: Positive for: Alert and Oriented X 3 - Systems Exam Head: Present: Atraumatic, Normocephalic Pupils: Present: PERRL Extroacular Muscles: Present: EOMI Conjunctiva: Present: Normal Mouth: Present: Moist Mucous Membranes Neck: Present: Normal Range of Motion Respiratory/Chest: Present: Clear to Auscultation, Good Air Exchange. No: Respiratory Distress, Accessory Muscle Use Cardiovascular: Present: Regular Rate and Rhythm, Normal S1, S2. No: Murmurs Abdomen: Present: Normal Bowel Sounds, Other (bedside bladder u/s demonstartes collapsed bladder < 1cm around toro catheter balloon, no blood clots visualized in the urine. Toro was irrigated with 100 mL of sterile NaCl and clearer f;uid promptly drained out into leg bag ). No: Tenderness, Distention, Peritoneal Signs Back: Present: Normal Inspection Upper Extremity: Present: Normal Inspection. No: Cyanosis, Edema Lower Extremity: Present: Normal Inspection. No: Edema Neurological: Present: GCS=15, CN II-XII Intact, Speech Normal Skin: Present: Warm, Dry, Normal Color. No: Rashes Psychiatric: Present: Alert, Oriented x 3, Normal Insight, Normal Concentration Medical Decision Making ED Course and Treatment: 10/11/17 23:40 Impression: 87 year old male presents complaining of complaining of sanguinius urinary leakage around the toro and occasional bladder spasms. Patient had a "one touch procedure" (TURP like procedure) by Dr. Jeffries earlier today and sent home with a leg bag. Plan: -- Chest X-ray -- Cipro, Flomax -- Urine Culture -- Reassess and disposition Prior Visits: Notes and results from previous visits were reviewed. Patient was last seen in the emergency department on 09/13/17 presents complaining of urinary retention. Patient was discharged Progress Notes: 10/12/17 00:06 Dr. Jeffries consulted regarding pt. presentation and lab resulatation, as well as procedure conducted by myself and he concurred with ED mgmt. + f/u on wednesday10/14/17 am, with scripts for ceftin . 10/12/17 00:17 Pt not in retention as per shrunken collapsed bladder on bedside u/s , leg bag drainining clearing urine. Pt. will be advised to use tylenol azopyridium prn pain , and continue with Dr. adonis arnold abx. - Lab Interpretations Lab Results: 10/11/17 22:15 10/11/17 22:15 Lab Results 10/11/17 22:15: Urine Color Red, Urine Appearance Cloudy, Urine pH 6.5, Ur Specific [place] 1.015, Urine Protein >=300 H, Urine Glucose (UA) Negative, Urine Ketones 15 H, Urine Blood Large H, Urine Nitrate Positive H, Urine Bilirubin Moderate H, Urine Urobilinogen 1.0 H, Ur Leukocyte Esterase Moderate H , Urine RBC Tntc, Urine WBC 10 - 15, Ur Epithelial Cells 0 - 2, Urine Bacteria Mod 10/11/17 22:15: Sodium 135, Potassium 4.1, Chloride 98, Carbon Dioxide 27, Anion Gap 14, BUN 45 H, Creatinine 1.9 H, Est GFR ( Amer) 41, Est GFR ( Non-Af Amer) 34, Random Glucose 146 H, Calcium 9.6, Total Bilirubin 0.4, AST 36 , ALT 25, Alkaline Phosphatase 51, Total Protein 6.7, Albumin 3.7, Globulin 3.0 , Albumin/Globulin Ratio 1.3 10/11/17 22:15: PT 12.2, INR 1.07, APTT 31.3 10/11/17 22:15: WBC 9.5 D, RBC 3.11 L, Hgb 9.3 L, Hct 28.5 L, MCV 91.6, MCH 29.9, MCHC 32.6, RDW 14.8 H, Plt Count 132, MPV 9.7, Gran % 77.9 H, Lymph % ( Auto) 14.5 L, [place] % (Auto) 5.5, Eos % (Auto) 1.9, Baso % (Auto) 0.2, Gran # 7.38 H, Lymph # (Auto) 1.4, [place] # (Auto) 0.5, Eos # (Auto) 0.2, Baso # (Auto) 0.02 - RAD Interpretation Radiology Orders: 10/11/17 21:45 CHEST PORTABLE [RAD] Stat - Medication Orders Current Medication Orders: Discontinued Medications Ciprofloxacin (Cipro) 500 mg PO ONCE STA PRN Reason: Protocol Stop: 10/11/17 23:10 Tamsulosin HCl (Flomax) 0.4 mg PO STAT STA Stop: 10/11/17 23:11 Disposition/Present on Arrival - Present on Arrival Any Indicators Present on Arrival: No History of DVT/PE: No History of Uncontrolled Diabetes: No Urinary Catheter: No History of Decub. Ulcer: No History Surgical Site Infection Following: None - Disposition Have Diagnosis and Disposition been Completed?: Yes Diagnosis: Hematuria Disposition: HOME/ ROUTINE Disposition Time: 00:08 Patient Plan: Discharge Condition: GUARDED Discharge Instructions (ExitCare): Blood in the Urine (Hematuria) in Adults Print Language: [place]ET[place]ESE Additional Instructions: Please follow up with Dr. Jeffries on wednesday as scheduled 1) decrementing sanguinous (blood tinged urine) is normal after your procedure , the urine should be clearing over the next 1-2 days. Return if you are passing large clots or have intractable pain or are experienceing diminished urinary flow relative to your normal frequency of leg bag changes. Return if you experience fevers/nause and/or vomiting . 2) continue with all your regular urinary medication. Dr. Jeffries has written antibiotics and other scripts which await you at your pharmacy. Prescriptions: Finasteride [Proscar] 5 mg PO DAILY #30 tab Phenazopyridine HCl [Pyridium] 100 mg PO BID PRN #6 tablet PRN Reason: Pain, Moderate (4-7) Tamsulosin HCl [Flomax] 0.4 mg PO DAILY #30 cap.er.24h Referrals: Jose Moreland MD [Primary Care Provider] - Follow up with primary Andrzej Jeffries MD [Staff Provider] - Follow up with primary Forms: [employer] ([place] Citizen)
[2017-10-12 01:35] VITALS: BP 138/82; PULSE 89
--- NOTE | 2017-10-12 08:16 | RAD ---
HISTORY: rout med exam COMPARISON: Chest radiographs 08/25/2017 FINDINGS: LUNGS: No active pulmonary disease. PLEURA: No significant pleural effusion identified, no pneumothorax apparent. CARDIOVASCULAR: Cardiac silhouette remains normal size. No pulmonary vascular derangement appreciated. Sternotomy wires again seen as well as prosthetic cardiac valve and surgical clips. OSSEOUS STRUCTURES: As above. VISUALIZED UPPER ABDOMEN: Unremarkable. OTHER FINDINGS: In mediastinum. IMPRESSION: No interval acute cardiopulmonary disease appreciated. Post cardiac valve replacement changes again evident.
== END 2017-10-12 00:30 | disposition home or self-care (01) ==
LOC: ED 20:56
DX: R31.9 Hematuria, unspecified (principal); I10 Essential (primary) hypertension; E11.9 Type 2 diabetes mellitus without complications; Z95.1 Presence of aortocoronary bypass graft; Z95.2 Presence of prosthetic heart valve

== ENCOUNTER 2017-10-27 00:04 | Emergency (ER) | payer MEDICARE ==
[2017-10-27 00:04] VITALS: PULSE 110; BMI 23.5
--- NOTE | 2017-10-27 00:22 | ED PDOC ---
Arrival/HPI - General Chief Complaint: Male Genitourinary Time Seen by Provider: 10/27/17 00:10 Historian: Patient - History of Present Illness Narrative History of Present Illness (Text): 10/27/17 00:21 Joshua Butts is an 87 year old male, whose past medical history includes enlarged prostate, diabetes, hypertension, CAD, CABG, aortic valve replacement, and colon polyps, who presents to the emergency department complaining of urinary retention. Patient states he had his toro catheter removed this morning and has been unable to void his bladder since this afternoon. Patient reports some associated suprapubic fullness. Patient denies any fever, chills, nausea, vomiting, back pain, headache, dizziness, or any other complaints. Symptom Onset: Gradual Symptom Course: Unchanged Activities at Onset: Light Context: Home Past Medical History - Provider Review Nursing Documentation Reviewed: Yes - Past History Past History: Non-Contributing - Infectious Disease Hx of Infectious Diseases: None - Tetanus Immunization Tetanus Immunization: Unknown - Past Medical History Past Medical History: Non-Contributing - Cardiac Hx Pacemaker: No - Pulmonary Hx Asthma: Yes - Neurological Hx Paralysis: No - HEENT Hx HEENT Disorder: No - Renal Hx Renal Disorder: No - Endocrine/Metabolic Hx Diabetes Mellitus Type 2: Yes - Hematological/Oncological Hx Blood Transfusions: Yes - Integumentary Hx Dermatological Disorder: No - Musculoskeletal/Rheumatological Hx Musculoskeletal Disorders: No - Gastrointestinal Hx Gastrointestinal Disorders: No - Genitourinary/Gynecological Hx Genitourinary Disorders: Yes Hx Prostate Problems: Yes - Psychiatric Hx Emotional Abuse: No Hx Physical Abuse: No Hx Substance Use: No - Surgical History Hx Coronary Artery Bypass Graft: Yes - Anesthesia Hx Anesthesia Reactions: No Hx Malignant Hyperthermia: No - Suicidal Assessment Feels Threatened In Home Enviroment: No Family/Social History - Physician Review Nursing Documentation Reviewed: Yes Family/Social History: Unknown Family HX Smoking Status: Never Smoked Hx Alcohol Use: No Hx Substance Use: No Allergies/Home Meds Allergies/Adverse Reactions: Allergies No Known Allergies Allergy (Verified 10/11/17 21:07) Home Medications: Home Meds Medication Instructions Recorded Confirmed Atorvastatin Calcium [Lipitor] 20 mg PO QPM 10/12/14 10/11/17 Losartan [Cozaar] 50 mg PO QPM 10/12/14 10/11/17 [place]-3 Fatty Acids/Fish Oil [Fish 3 cap PO DAILY 10/26/14 10/11/17 Oil 1,000 mg Capsule] Aspirin [Ecotrin] 81 mg PO DAILY 02/10/16 10/11/17 Calcium Cit/Mgox/Vit D3/B6/Min 1 each PO BID 02/10/16 10/11/17 [Calcium Citrate Plus Tablet] Magnesium Oxide/Magnesium 300 mg PO DAILY 02/10/16 10/11/17 [Magnesium 300 mg Capsule] Metoprolol Tartrate [Lopressor] 25 mg PO QPM 02/10/16 10/11/17 Metoprolol Tartrate [Lopressor] 37.5 mg PO QAM 02/10/16 10/11/17 SITagliptin [Januvia] 50 mg PO QAM 02/10/16 10/11/17 Beta Carotene [Vitamin A] 25,000 units PO DAILY 09/28/17 10/11/17 Polyethylene Glycol 3350 [Miralax] 17 gm PO BID 09/28/17 10/11/17 Vitamin B Complex [B Complex] 1 tab PO DAILY 09/28/17 10/11/17 Vitamin E [Vitamin E] 200 units PO DAILY 09/28/17 10/11/17 Cefuroxime Susp [Ceftin] 500 mg PO BID 10/11/17 10/11/17 Review of Systems - Physician Review All systems were reviewed & negative as marked: Yes - Review of Systems Constitutional: Normal. absent: Fevers Eyes: Normal ENT: Normal Respiratory: Normal. absent: SOB, Cough Cardiovascular: Normal. absent: Chest Pain Gastrointestinal: Normal. absent: Abdominal Pain, Diarrhea, Nausea, Vomiting Genitourinary Male: Urinary Output Changes (+urinary retention) Musculoskeletal: Normal. absent: Back Pain, Neck Pain Skin: Normal. absent: Rash Neurological: Normal. absent: Headache, Dizziness Endocrine: Normal Hemo/Lymphatic: Normal Psychiatric: Normal Physical Exam Vital Signs Reviewed: Yes Vital Signs Temp Pulse Resp BP Pulse Ox 10/27/17 00:38 97.6 F 91 H 18 190/93 H 100 Temperature: Afebrile Blood Pressure: Hypertensive Pulse: Regular Respiratory Rate: Normal Appearance: Positive for: Well-Appearing, Non-Toxic, Comfortable Pain Distress: None Mental Status: Positive for: Alert and Oriented X 3 - Systems Exam Head: Present: Atraumatic, Normocephalic Pupils: Present: PERRL Extroacular Muscles: Present: EOMI Conjunctiva: Present: Normal Mouth: Present: Moist Mucous Membranes Neck: Present: Normal Range of Motion Respiratory/Chest: Present: Clear to Auscultation, Good Air Exchange. No: Respiratory Distress, Accessory Muscle Use Cardiovascular: Present: Regular Rate and Rhythm, Normal S1, S2. No: Murmurs Abdomen: Present: Normal Bowel Sounds. No: Tenderness, Distention, Peritoneal Signs Back: Present: Normal Inspection Upper Extremity: Present: Normal Inspection. No: Cyanosis, Edema Lower Extremity: Present: Normal Inspection. No: Edema Neurological: Present: GCS=15, CN II-XII Intact, Speech Normal Skin: Present: Warm, Dry, Normal Color. No: Rashes Psychiatric: Present: Alert, Oriented x 3, Normal Insight, Normal Concentration Medical Decision Making ED Course and Treatment: 10/27/17 00:21 Impression: 87 year old male complaining of urinary retention. Differential Diagnosis included but are not limited to: urinary retention vs. BPH Plan: -- Toro catheter placement -- Reassess and disposition Prior Visits: Notes and results from previous visits were reviewed. Progress Notes: 10/27/17 00:30 PROCEDURE: Urinary catheter placement Performed by the emergency provider Consent: Informed consent, after discussion of the risks, benefits, and alternatives to the procedure was obtained. Timeout: A timeout to verify the correct patient, procedure, and site was performed. Indication: Urinary retention Preparation: The area was prepped and draped in the usual sterile fashion. Procedure: 18F Coude urinary catheter placed without complications Post-procedure: The patient tolerated the procedure well with no immediate complications. - Scribe Statement The provider has reviewed the documentation as recorded by the Kaila Rinaldi Provider Scribe Attestation: All medical record entries made by the Scribangeles were at my direction and personally dictated by me. I have reviewed the chart and agree that the record accurately reflects my personal performance of the history, physical exam, medical decision making, and the department course for this patient. I have also personally directed, reviewed, and agree with the discharge instructions and disposition. Disposition/Present on Arrival - Present on Arrival Any Indicators Present on Arrival: No History of DVT/PE: No History of Uncontrolled Diabetes: No Urinary Catheter: No History of Decub. Ulcer: No History Surgical Site Infection Following: None - Disposition Have Diagnosis and Disposition been Completed?: Yes Diagnosis: Urinary retention Disposition: HOME/ ROUTINE Disposition Time: 04:00 Condition: FAIR Discharge Instructions (ExitCare): Toro Catheter, Male, Urinary Retention Prescriptions: Tamsulosin [Flomax] 0.4 mg PO DAILY #30 cap Finasteride [Proscar] 5 mg PO DAILY #30 tab [facility] - Follow up with primary Forms: [place]
[2017-10-27 00:50] VITALS: BP 190/93; PULSE 91; RESP 18; TEMP 97.6; O2SAT 100
== END 2017-10-27 02:43 | disposition home or self-care (01) ==
LOC: ED 00:04
DX: R33.9 Retention of urine, unspecified (principal); E11.9 Type 2 diabetes mellitus without complications; I10 Essential (primary) hypertension; I25.10 Atherosclerotic heart disease of native coronary artery without angina pectoris

== ENCOUNTER 2017-10-31 17:10 | Emergency (ER) | payer MEDICARE ==
[2017-10-31 17:10] VITALS: PULSE 110; BMI 23.5
[2017-10-31 17:58] VITALS: BP 168/64; PULSE 68; RESP 20; TEMP 98; O2SAT 99
--- NOTE | 2017-10-31 18:16 | ED PDOC ---
Arrival/HPI - General Chief Complaint: Male Genitourinary Time Seen by Provider: 10/31/17 18:00 Historian: Patient - History of Present Illness Narrative History of Present Illness (Text): 10/31/17 18:18 87 y/o male, pmh including asthma/urinary retention, nkda, c/o leaking toro catheter x 1 hour. Pt. stated that he noticed the boxer is wet on the rt. thigh toro bag region, no fever or chills, no palpitation, no rash, no numbness or tingling, no other medical or psychological complaints. Past Medical History - Provider Review Nursing Documentation Reviewed: Yes - Past History Past History: Non-Contributing - Infectious Disease Hx of Infectious Diseases: None - Tetanus Immunization Tetanus Immunization: Unknown - Past Medical History Past Medical History: Non-Contributing - Cardiac Hx Pacemaker: No - Pulmonary Hx Asthma: Yes - Neurological Hx Paralysis: No - HEENT Hx HEENT Disorder: No - Renal Hx Renal Disorder: No - Endocrine/Metabolic Hx Diabetes Mellitus Type 2: Yes - Hematological/Oncological Hx Blood Transfusions: Yes - Integumentary Hx Dermatological Disorder: No - Musculoskeletal/Rheumatological Hx Musculoskeletal Disorders: No - Gastrointestinal Hx Gastrointestinal Disorders: No - Genitourinary/Gynecological Hx Genitourinary Disorders: Yes Hx Prostate Problems: Yes - Psychiatric Hx Emotional Abuse: No Hx Physical Abuse: No Hx Substance Use: No - Surgical History Hx Coronary Artery Bypass Graft: Yes - Anesthesia Hx Anesthesia: Yes Hx Anesthesia Reactions: No Hx Malignant Hyperthermia: No - Suicidal Assessment Feels Threatened In Home Enviroment: No Family/Social History - Physician Review Nursing Documentation Reviewed: Yes Family/Social History: Unknown Family HX Smoking Status: Never Smoked Hx Alcohol Use: No Hx Substance Use: No Allergies/Home Meds Allergies/Adverse Reactions: Allergies No Known Allergies Allergy (Verified 10/31/17 17:58) Home Medications: Home Meds Medication Instructions Recorded Confirmed Atorvastatin Calcium [Lipitor] 20 mg PO QPM 10/12/14 10/31/17 Losartan [Cozaar] 50 mg PO QPM 10/12/14 10/31/17 [place]-3 Fatty Acids/Fish Oil [Fish 3 cap PO DAILY 10/26/14 10/31/17 Oil 1,000 mg Capsule] Aspirin [Ecotrin] 81 mg PO DAILY 02/10/16 10/31/17 Calcium Cit/Mgox/Vit D3/B6/Min 1 each PO BID 02/10/16 10/31/17 [Calcium Citrate Plus Tablet] Magnesium Oxide/Magnesium 300 mg PO DAILY 02/10/16 10/31/17 [Magnesium 300 mg Capsule] Metoprolol Tartrate [Lopressor] 25 mg PO QPM 02/10/16 10/31/17 SITagliptin [Januvia] 50 mg PO QAM 02/10/16 10/31/17 Beta Carotene [Vitamin A] 25,000 units PO DAILY 09/28/17 10/31/17 Polyethylene Glycol 3350 [Miralax] 17 gm PO BID 09/28/17 10/31/17 Vitamin B Complex [B Complex] 1 tab PO DAILY 09/28/17 10/31/17 Vitamin E [Vitamin E] 200 units PO DAILY 09/28/17 10/31/17 Review of Systems - Review of Systems Constitutional: absent: Fatigue, Fevers Eyes: absent: Vision Changes ENT: absent: Hearing Changes Respiratory: absent: SOB, Cough Cardiovascular: absent: Chest Pain Gastrointestinal: absent: Abdominal Pain, Nausea, Vomiting Skin: absent: Rash, Pruritis Neurological: absent: Headache, Dizziness Psychiatric: absent: Anxiety, Depression Physical Exam Vital Signs Reviewed: Yes Vital Signs Temp Pulse Resp BP Pulse Ox 10/31/17 17:54 98 F 68 20 168/64 H 99 Temperature: Afebrile Blood Pressure: Hypertensive Pulse: Regular Respiratory Rate: Normal Appearance: Positive for: Well-Appearing, Non-Toxic, Comfortable Pain Distress: None Mental Status: Positive for: Alert and Oriented X 3 - Systems Exam Head: Present: Atraumatic, Normocephalic Pupils: Present: PERRL Extroacular Muscles: Present: EOMI Conjunctiva: Present: Normal Mouth: Present: Moist Mucous Membranes Neck: Present: Normal Range of Motion Respiratory/Chest: Present: Clear to Auscultation, Good Air Exchange. No: Respiratory Distress, Accessory Muscle Use Cardiovascular: Present: Regular Rate and Rhythm, Normal S1, S2. No: Murmurs Abdomen: Present: Normal Bowel Sounds. No: Tenderness, Distention, Peritoneal Signs Genitourinary Male: Present: Normal External Genitalia, Circumcised Penis, Other (toro cathether noted with no hematuria or discoloration noted. ). No: Lesions, Penile Discharge, Testicle Tenderness, Penile Swelling, Masses, Erythema, Hernias, Testicle Swelling Back: Present: Normal Inspection Upper Extremity: Present: Normal Inspection. No: Cyanosis, Edema Lower Extremity: Present: Normal Inspection. No: Edema Neurological: Present: GCS=15, CN II-XII Intact, Speech Normal Skin: Present: Warm, Dry, Normal Color. No: Rashes Psychiatric: Present: Alert, Oriented x 3, Normal Insight, Normal Concentration Medical Decision Making ED Course and Treatment: 10/31/17 18:16 -Toro bag change -UA -Observe and reassess 10/31/17 18:42 -UA show UTI, toro catheter changed and checked, no leaking noted, will discharge home. -Discharge home with keflex, follow up with your own pmd and urologist within 2 days, return to the ER for any new or worsening signs or symptoms. - Lab Interpretations Lab Results: Lab Results 10/31/17 18:30: Urine Color Yellow, Urine Appearance Cloudy, Urine pH 6.5, Ur Specific [place] 1.020, Urine Protein 30 H, Urine Glucose (UA) Negative, Urine Ketones Negative, Urine Blood Moderate H, Urine Nitrate Negative, Urine Bilirubin Negative, Urine Urobilinogen 0.2, Ur Leukocyte Esterase Large H, Urine RBC Pending, Urine WBC Pending - PA / FINANCIAL SERVICE REPRESENTATIVE / Resident Statement MD/DO has reviewed & agrees with the documentation as recorded. Disposition/Present on Arrival - Present on Arrival Any Indicators Present on Arrival: No History of DVT/PE: No History of Uncontrolled Diabetes: No Urinary Catheter: No History of Decub. Ulcer: No History Surgical Site Infection Following: None - Disposition Have Diagnosis and Disposition been Completed?: Yes Diagnosis: Toro catheter problem, UTI (urinary tract infection) Disposition: HOME/ ROUTINE Disposition Time: 18:27 Patient Plan: Discharge Patient Problems: Current Active Problems Problem Status Onset Toro catheter problem Acute Condition: GOOD Additional Instructions: -Discharge home with keflex, follow up with your own pmd and urologist within 2 days, return to the ER for any new or worsening signs or symptoms. Prescriptions: Cephalexin [cephalexin] 500 mg PO TID #21 cap Referrals: Jose Moreland MD [Primary Care Provider] - Follow up with primary Andrzej Jeffries MD [Staff Provider] - Follow up with primary Forms: WORK NOTE
[2017-10-31 18:39] LABS: PH,URINE 6.5 (4.7-8.0); URINE BILIRUBIN NEGATIVE (NEGATIVE); URINE BLOOD MODERATE (NEGATIVE); URINE GLUCOSE (UA) NEGATIVE (NEGATIVE); URINE LEUKOCYTE ESTERASE LARGE Leu/uL (NEGATIVE); URINE PROTEIN 30 mg/dL (<30 mg/dL); URINE UROBILINOGEN 0.2 E.U./dL (<1 E.U./dL)
[2017-10-31 18:40] LABS: URINE APPEARANCE CLOUDY (CLEAR); URINE COLOR YELLOW (YELLOW)
[2017-10-31 18:44] LABS: URINE BACTERIA TRACE (NEG)
== END 2017-10-31 19:40 | disposition home or self-care (01) ==
LOC: ED 17:10
DX: N39.0 Urinary tract infection, site not specified (principal); T83.9XXA Unspecified complication of genitourinary prosthetic device, implant and graft, initial encounter; E11.9 Type 2 diabetes mellitus without complications

== ENCOUNTER 2017-11-13 03:22 | Emergency (ER) | payer MEDICARE ==
[2017-11-13 03:23] VITALS: PULSE 110; BMI 23.5
--- NOTE | 2017-11-13 04:04 | ED PDOC ---
Arrival/HPI - General Chief Complaint: Male Genitourinary Time Seen by Provider: 11/13/17 03:25 Historian: Patient - History of Present Illness Narrative History of Present Illness (Text): 11/13/17 04:03 Joshua Lugo is an 87 year old male, whose past medical history includes enlarged prostate, diabetes, hypertension, CAD, CABG, aortic valve replacement, and colon polyps, who presents to the emergency department complaining of Toro catheter malfunction. Patient states he woke up tonight at approximately 03:00, noted his toro catheter was leaking and his pajama pants were soaked with urine. Patient states his Toro catheter was last changed on 10/31/17. Patient denies any fever, chills, chest pain, shortness of breath, abdominal pain, nausea, vomiting, diarrhea, back pain, neck pain, headache, dizziness, or any other complaints. Urologist: Dr. Jeffries Symptom Onset: Gradual Symptom Course: Unchanged Activities at Onset: Light Context: Home Past Medical History - Provider Review Nursing Documentation Reviewed: Yes - Past History Past History: Non-Contributing - Infectious Disease Hx of Infectious Diseases: None - Tetanus Immunization Tetanus Immunization: Unknown - Past Medical History Past Medical History: Non-Contributing - Cardiac Hx Pacemaker: No - Pulmonary Hx Asthma: Yes - Neurological Hx Paralysis: No - HEENT Hx HEENT Disorder: No - Renal Hx Renal Disorder: No - Endocrine/Metabolic Hx Diabetes Mellitus Type 2: Yes - Hematological/Oncological Hx Blood Transfusions: Yes - Integumentary Hx Dermatological Disorder: No - Musculoskeletal/Rheumatological Hx Musculoskeletal Disorders: No - Gastrointestinal Hx Gastrointestinal Disorders: No - Genitourinary/Gynecological Hx Genitourinary Disorders: Yes Hx Prostate Problems: Yes - Psychiatric Hx Emotional Abuse: No Hx Physical Abuse: No Hx Substance Use: No - Surgical History Hx Coronary Artery Bypass Graft: Yes - Anesthesia Hx Anesthesia: Yes Hx Anesthesia Reactions: No Hx Malignant Hyperthermia: No - Suicidal Assessment Feels Threatened In Home Enviroment: No Family/Social History - Physician Review Nursing Documentation Reviewed: Yes Family/Social History: Unknown Family HX Smoking Status: Never Smoked Hx Alcohol Use: No Hx Substance Use: No Allergies/Home Meds Allergies/Adverse Reactions: Allergies No Known Allergies Allergy (Verified 11/13/17 03:29) Home Medications: Home Meds Medication Instructions Recorded Confirmed Atorvastatin Calcium [Lipitor] 20 mg PO QPM 10/12/14 11/13/17 Losartan [Cozaar] 50 mg PO QPM 10/12/14 11/13/17 [place]-3 Fatty Acids/Fish Oil [Fish 3 cap PO DAILY 10/26/14 11/13/17 Oil 1,000 mg Capsule] Aspirin [Ecotrin] 81 mg PO DAILY 02/10/16 11/13/17 Calcium Cit/Mgox/Vit D3/B6/Min 1 each PO BID 02/10/16 11/13/17 [Calcium Citrate Plus Tablet] Magnesium Oxide/Magnesium 300 mg PO DAILY 02/10/16 11/13/17 [Magnesium 300 mg Capsule] Metoprolol Tartrate [Lopressor] 25 mg PO QPM 02/10/16 11/13/17 SITagliptin [Januvia] 50 mg PO QAM 02/10/16 11/13/17 Beta Carotene [Vitamin A] 25,000 units PO DAILY 09/28/17 11/13/17 Polyethylene Glycol 3350 [Miralax] 17 gm PO BID 09/28/17 11/13/17 Vitamin B Complex [B Complex] 1 tab PO DAILY 09/28/17 11/13/17 Vitamin E [Vitamin E] 200 units PO DAILY 09/28/17 11/13/17 Review of Systems - Physician Review All systems were reviewed & negative as marked: Yes - Review of Systems Constitutional: Normal. absent: Fevers Eyes: Normal ENT: Normal Respiratory: Normal. absent: SOB, Cough Cardiovascular: Normal. absent: Chest Pain Gastrointestinal: Normal. absent: Abdominal Pain, Diarrhea, Nausea, Vomiting Genitourinary Male: Other (+toro catheter malfunction). absent: Dysuria, Frequency, Hematuria, Urinary Output Changes Musculoskeletal: Normal. absent: Back Pain, Neck Pain Skin: Normal Neurological: Normal Endocrine: Normal Hemo/Lymphatic: Normal Psychiatric: Normal Physical Exam Vital Signs Reviewed: Yes Temperature: Afebrile Blood Pressure: Normal Pulse: Regular Respiratory Rate: Normal Appearance: Positive for: Well-Appearing, Non-Toxic, Comfortable Pain Distress: None Mental Status: Positive for: Alert and Oriented X 3 - Systems Exam Head: Present: Atraumatic, Normocephalic Pupils: Present: PERRL Extroacular Muscles: Present: EOMI Conjunctiva: Present: Normal Mouth: Present: Moist Mucous Membranes Neck: Present: Normal Range of Motion Respiratory/Chest: Present: Clear to Auscultation, Good Air Exchange. No: Respiratory Distress, Accessory Muscle Use Cardiovascular: Present: Regular Rate and Rhythm, Normal S1, S2. No: Murmurs Abdomen: No: Tenderness, Distention, Peritoneal Signs Genitourinary Male: Present: Other (Toro catheter in place) Back: Present: Normal Inspection Upper Extremity: Present: Normal Inspection. No: Cyanosis, Edema Lower Extremity: Present: Normal Inspection. No: Edema Neurological: Present: GCS=15, CN II-XII Intact, Speech Normal Skin: Present: Warm, Dry, Normal Color. No: Rashes Psychiatric: Present: Alert, Oriented x 3, Normal Insight, Normal Concentration Medical Decision Making ED Course and Treatment: 11/13/17 04:03 Impression: 87 year old male complaining of leaking toro catheter tonight. Differential Diagnosis included but are not limited to: toro catheter malfunction Plan: -- Toro Catheter Replacement -- Reassess and disposition Prior Visits: Notes and results from previous visits were reviewed. On 10/31/2017, pt was seen in the emergency department for a leaking toro leg bag. Toro catheter was changed and pt was d/c home. Progress Notes: 11/13/17 05:12 Toro catheter replaced by RN without complications. Draining urine and functioning well. Patient in agreement with the plan to be discharged home. Patient is stable for discharge. Patient was instructed to follow up with physician/urologist or return if symptoms persist/worsen or new concerning symptoms arise. - Scribe Statement The provider has reviewed the documentation as recorded by the Kaila Rinaldi Provider Scribe Attestation: All medical record entries made by the Kaila were at my direction and personally dictated by me. I have reviewed the chart and agree that the record accurately reflects my personal performance of the history, physical exam, medical decision making, and the department course for this patient. I have also personally directed, reviewed, and agree with the discharge instructions and disposition. Disposition/Present on Arrival - Present on Arrival Any Indicators Present on Arrival: No History of DVT/PE: No History of Uncontrolled Diabetes: No Urinary Catheter: No History of Decub. Ulcer: No History Surgical Site Infection Following: None - Disposition Have Diagnosis and Disposition been Completed?: Yes Diagnosis: Malfunction of Toro catheter, Encounter for Toro catheter replacement Disposition: HOME/ ROUTINE Disposition Time: :10 Patient Plan: Discharge Patient Problems: Current Active Problems Problem Status Onset Encounter for Toro catheter replacement Acute Malfunction of Toro catheter Acute Condition: GOOD Discharge Instructions (ExitCare): How to Care for Your Toro Catheter, Male, Toro Catheter, Male Additional Instructions: Follow up with your doctor this week Forms: [employer] (Arabic)
[2017-11-13 06:25] VITALS: BP 130/72; PULSE 73; RESP 18; TEMP 98.4; O2SAT 97
== END 2017-11-13 05:30 | disposition home or self-care (01) ==
LOC: ED 03:22
DX: T83.091A Other mechanical complication of indwelling urethral catheter, initial encounter (principal); Z46.6 Encounter for fitting and adjustment of urinary device; E11.9 Type 2 diabetes mellitus without complications; I10 Essential (primary) hypertension; I25.10 Atherosclerotic heart disease of native coronary artery without angina pectoris; Z95.1 Presence of aortocoronary bypass graft; N40.0 Benign prostatic hyperplasia without lower urinary tract symptoms

== ENCOUNTER 2017-11-24 03:40 | Emergency (ER) | payer MEDICARE ==
[2017-11-24 03:41] VITALS: PULSE 110; BMI 23.5
--- NOTE | 2017-11-24 04:53 | ED PDOC ---
Arrival/HPI - General Time Seen by Provider: 11/24/17 03:42 Historian: Patient - History of Present Illness Narrative History of Present Illness (Text): 11/24/17 04:53 Joshua Lugo is an 87 year old male, whose past medical history includes enlarged prostate, diabetes, hypertension, CAD, CABG, aortic valve replacement, and colon polyps, who presents to the emergency department complaining of Toro catheter malfunction. Patient states he woke up tonight and noted his toro catheter was leaking although the Toro catheter is draining well. Patient denies any fever, chills, chest pain, shortness of breath, abdominal pain, nausea, vomiting, diarrhea, back pain, neck pain, headache, dizziness, or any other complaints. Symptom Onset: Gradual Symptom Course: Unchanged Activities at Onset: Light Context: Home Past Medical History - Provider Review Nursing Documentation Reviewed: Yes - Past History Past History: Non-Contributing - Infectious Disease Hx of Infectious Diseases: None - Tetanus Immunization Tetanus Immunization: Unknown - Past Medical History Past Medical History: Non-Contributing - Cardiac Hx Pacemaker: No - Pulmonary Hx Asthma: Yes - Neurological Hx Paralysis: No - HEENT Hx HEENT Disorder: No - Renal Hx Renal Disorder: No - Endocrine/Metabolic Hx Diabetes Mellitus Type 2: Yes - Hematological/Oncological Hx Blood Transfusions: Yes - Integumentary Hx Dermatological Disorder: No - Musculoskeletal/Rheumatological Hx Musculoskeletal Disorders: No - Gastrointestinal Hx Gastrointestinal Disorders: No - Genitourinary/Gynecological Hx Genitourinary Disorders: Yes Hx Prostate Problems: Yes - Psychiatric Hx Emotional Abuse: No Hx Physical Abuse: No Hx Substance Use: No - Surgical History Hx Coronary Artery Bypass Graft: Yes - Anesthesia Hx Anesthesia: Yes Hx Anesthesia Reactions: No Hx Malignant Hyperthermia: No - Suicidal Assessment Feels Threatened In Home Enviroment: No Family/Social History - Physician Review Nursing Documentation Reviewed: Yes Family/Social History: Unknown Family HX Smoking Status: Never Smoked Hx Alcohol Use: No Hx Substance Use: No Allergies/Home Meds Allergies/Adverse Reactions: Allergies No Known Allergies Allergy (Verified 11/24/17 04:58) Home Medications: Home Meds Medication Instructions Recorded Confirmed Atorvastatin Calcium [Lipitor] 20 mg PO QPM 10/12/14 11/13/17 Losartan [Cozaar] 50 mg PO QPM 10/12/14 11/13/17 [place]-3 Fatty Acids/Fish Oil [Fish 3 cap PO DAILY 10/26/14 11/13/17 Oil 1,000 mg Capsule] Aspirin [Ecotrin] 81 mg PO DAILY 02/10/16 11/13/17 Calcium Cit/Mgox/Vit D3/B6/Min 1 each PO BID 02/10/16 11/13/17 [Calcium Citrate Plus Tablet] Magnesium Oxide/Magnesium 300 mg PO DAILY 02/10/16 11/13/17 [Magnesium 300 mg Capsule] Metoprolol Tartrate [Lopressor] 25 mg PO QPM 02/10/16 11/13/17 SITagliptin [Januvia] 50 mg PO QAM 02/10/16 11/13/17 Beta Carotene [Vitamin A] 25,000 units PO DAILY 09/28/17 11/13/17 Polyethylene Glycol 3350 [Miralax] 17 gm PO BID 09/28/17 11/13/17 Vitamin B Complex [B Complex] 1 tab PO DAILY 09/28/17 11/13/17 Vitamin E [Vitamin E] 200 units PO DAILY 09/28/17 11/13/17 Review of Systems - Physician Review All systems were reviewed & negative as marked: Yes - Review of Systems Constitutional: Normal. absent: Fevers Eyes: Normal ENT: Normal Respiratory: Normal. absent: SOB, Cough Cardiovascular: Normal. absent: Chest Pain Gastrointestinal: Normal. absent: Abdominal Pain, Diarrhea, Nausea, Vomiting Genitourinary Male: Other (+toro catheter malfunction). absent: Frequency, Hematuria, Urinary Output Changes Musculoskeletal: Normal. absent: Back Pain, Neck Pain Skin: Normal. absent: Rash Neurological: Normal. absent: Headache, Dizziness Endocrine: Normal Hemo/Lymphatic: Normal Psychiatric: Normal Physical Exam Vital Signs Reviewed: Yes Vital Signs Temp Pulse Resp BP Pulse Ox 11/24/17 06:30 72 18 162/82 H 100 11/24/17 04:53 97.5 F L 62 18 190/59 H 100 Temperature: Afebrile Blood Pressure: Normal Pulse: Regular Respiratory Rate: Normal Appearance: Positive for: Well-Appearing, Non-Toxic, Comfortable Pain Distress: None Mental Status: Positive for: Alert and Oriented X 3 - Systems Exam Head: Present: Atraumatic, Normocephalic Pupils: Present: PERRL Extroacular Muscles: Present: EOMI Conjunctiva: Present: Normal Mouth: Present: Moist Mucous Membranes Neck: Present: Normal Range of Motion Respiratory/Chest: Present: Clear to Auscultation, Good Air Exchange. No: Respiratory Distress, Accessory Muscle Use Cardiovascular: Present: Regular Rate and Rhythm, Normal S1, S2. No: Murmurs Abdomen: No: Tenderness, Distention, Peritoneal Signs Genitourinary Male: Present: Other (Indwelling Toro catheter, no leakage noted , draining urine well) Back: Present: Normal Inspection Upper Extremity: Present: Normal Inspection. No: Cyanosis, Edema Lower Extremity: Present: Normal Inspection. No: Edema Neurological: Present: GCS=15, CN II-XII Intact, Speech Normal Skin: Present: Warm, Dry, Normal Color. No: Rashes Psychiatric: Present: Alert, Oriented x 3, Normal Insight, Normal Concentration Medical Decision Making ED Course and Treatment: 11/24/17 04:53 Impression: 87 year old male complaining of leaking toro catheter Plan: -- Reassess and disposition Progress Notes: Pt states Toro catheter has been leaking, however on examination, Toro is not leaking and is draining urine well. 11/24/17 06:24 On re-evaluation, patient feels better and is in no acute distress. I have discussed the results and plan with the patient, who expresses understanding. Patient in agreement with plan to be discharged home. Patient is stable for discharge. Patient was instructed to follow up with physician or return if symptoms worsen or new concerning symptoms arise. - Scribe Statement The provider has reviewed the documentation as recorded by the Kaila Rinaldi Provider Scribe Attestation: All medical record entries made by the Scribe were at my direction and personally dictated by me. I have reviewed the chart and agree that the record accurately reflects my personal performance of the history, physical exam, medical decision making, and the department course for this patient. I have also personally directed, reviewed, and agree with the discharge instructions and disposition. Disposition/Present on Arrival - Present on Arrival Any Indicators Present on Arrival: No History of DVT/PE: No History of Uncontrolled Diabetes: No Urinary Catheter: No History Surgical Site Infection Following: None - Disposition Have Diagnosis and Disposition been Completed?: Yes Diagnosis: Toro catheter problem Disposition: HOME/ ROUTINE Disposition Time: 06:30 Condition: GOOD Discharge Instructions (ExitCare): How to Care for Your Toro Catheter, Male Forms: [employer] (Maori)
[2017-11-24 04:58] VITALS: RESP 18; TEMP 97.5; O2SAT 100
[2017-11-24 06:41] VITALS: BP 162/82; PULSE 72
== END 2017-11-24 06:30 | disposition home or self-care (01) ==
LOC: ED 03:40
DX: Z46.6 Encounter for fitting and adjustment of urinary device (principal)

== ENCOUNTER 2018-05-17 23:31 | Inpatient (IN) | payer MEDICARE ==
[2018-05-17 23:32] VITALS: PULSE 110
[2018-05-17 23:52] VITALS: BMI 21.6
[2018-05-18] MEDS ORDERED: Oxycodone/Acetaminophen 5/325 mg Tab PO STA ×2 (00:36→01:44)
--- NOTE | 2018-05-18 00:38 | ED PDOC ---
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 Patient informs he feels the pain mostly in right buttock, radiating to posterior aspect of right leg. Patient states Dr. Murdock prescribed him medrol dosepak which helped at first but is in-effective. Patient states he has used it for 3 days, as well as tramadol, with no relief. Reports feeling weakness to his legs and having to use a cane to walk. Patient denies any fever, bowel/bladder incontinence, numbness, injury, or any other complaints. PMD [place]perl Time/Duration: > week (2 weeks) Quality: Aching <Louise Hobbs PA-C - Last Filed: 05/18/18 16:34> <Nguyễn Garcia - Last Filed: 05/19/18 06:11> - General Chief Complaint: Lower Extremity Problem/Injury Time Seen by Provider: 05/18/18 00:02 Past Medical History - Provider Review Nursing Documentation Reviewed: Yes - Past History Past History: Non-Contributing - Infectious Disease Hx of Infectious Diseases: None - Tetanus Immunization Tetanus Immunization: Unknown - Past Medical History Past Medical History: Non-Contributing - Cardiac Hx Cardiac Disorders: No - Pulmonary Hx Respiratory Disorders: Yes Hx Asthma: Yes - Neurological Hx Neurological Disorder: No - HEENT Hx HEENT Disorder: No - Renal Hx Renal Disorder: No - Endocrine/Metabolic Hx Endocrine Disorders: Yes Hx Diabetes Mellitus Type 2: Yes - Hematological/Oncological Hx Blood Disorders: Yes Hx Blood Transfusions: Yes - Integumentary Hx Dermatological Disorder: No - Musculoskeletal/Rheumatological Hx Musculoskeletal Disorders: No - Gastrointestinal Hx Gastrointestinal Disorders: No - Genitourinary/Gynecological Hx Genitourinary Disorders: Yes Hx Prostate Problems: Yes - Psychiatric Hx Psychophysiologic Disorder: No Hx Substance Use: No - Surgical History Hx Coronary Artery Bypass Graft: Yes - Anesthesia Hx Anesthesia: Yes Hx Anesthesia Reactions: No Hx Malignant Hyperthermia: No - Suicidal Assessment Feels Threatened In Home Enviroment: No <Louise Hobbs PA-C - Last Filed: 05/18/18 16:34> Family/Social History - Physician Review Nursing Documentation Reviewed: Yes Family/Social History: No Known Family HX Smoking Status: Never Smoked Hx Alcohol Use: No Hx Substance Use: No <Louise Hobbs PA-C - Last Filed: 05/18/18 16:34> Allergies/Home Meds <Louise Hobbs PA-C - Last Filed: 05/18/18 16:34> <Nguyễn Garcia - Last Filed: 05/19/18 06:11> Allergies/Adverse Reactions: Allergies No Known Allergies Allergy (Verified 05/18/18 12:06) Home Medications: Home Meds Medication Instructions Recorded Confirmed RX: Atorvastatin Calcium [Lipitor] 20 mg PO QPM 10/12/14 05/18/18 RX: Losartan [Cozaar] 75 mg PO DAILY 10/12/14 05/18/18 RX: [place]-3 Fatty Acids/Fish Oil 3 cap PO DAILY 10/26/14 05/18/18 [Fish Oil 1,000 mg Capsule] RX: Aspirin [Ecotrin] 81 mg PO DAILY 02/10/16 05/18/18 RX: Calcium Cit/Mgox/Vit D3/B6/Min 1 each PO BID 02/10/16 05/18/18 [Calcium Citrate Plus Tablet] RX: Magnesium Oxide/Magnesium 300 mg PO DAILY 02/10/16 05/18/18 [Magnesium 300 mg Capsule] RX: SITagliptin [Januvia] 25 mg PO QAM 02/10/16 05/18/18 Beta Carotene [Vitamin A] 25,000 units PO DAILY 09/28/17 05/18/18 Polyethylene Glycol 3350 [Miralax] 17 gm PO DAILY 09/28/17 05/18/18 Vitamin B Complex [B Complex] 1 tab PO DAILY 09/28/17 05/18/18 Vitamin E 200 units PO DAILY 09/28/17 05/18/18 Abiraterone Acetate [Zytiga] 250 mg PO DAILY 05/18/18 05/18/18 RX: Tamsulosin [Flomax] 0.4 mg PO BID 05/18/18 05/18/18 RX: amLODIPine [Norvasc] 5 mg PO DAILY 05/18/18 05/18/18 Review of Systems - Physician Review All systems were reviewed & negative as marked: Yes - Review of Systems Constitutional: absent: Fevers, Other (no injury to leg) Neurological: absent: Focal Weakness, Other (numbness) <Louise Hobbs PA-C - Last Filed: 05/18/18 16:34> Physical Exam Vital Signs Reviewed: Yes Temperature: Afebrile Blood Pressure: Hypertensive Pulse: Regular Respiratory Rate: Normal Appearance: Positive for: Well-Appearing, Non-Toxic, Comfortable Pain Distress: None Mental Status: Positive for: Alert and Oriented X 3 - Systems Exam Head: Present: Atraumatic, Normocephalic Pupils: Present: PERRL Extroacular Muscles: Present: EOMI Conjunctiva: Present: Normal Mouth: Present: Moist Mucous Membranes Neck: Present: Normal Range of Motion Respiratory/Chest: Present: Clear to Auscultation, Good Air Exchange. No: Respiratory Distress, Accessory Muscle Use Cardiovascular: Present: Regular Rate and Rhythm, Normal S1, S2. No: Murmurs Abdomen: No: Tenderness, Distention, Peritoneal Signs, Mass/Organomegaly Back: Present: Normal Inspection, Paraspinal Tenderness. No: CVA Tenderness, Midline Tenderness, Pain with Leg Raise Upper Extremity: Present: Normal Inspection. No: Cyanosis, Edema Lower Extremity: Present: Normal Inspection, NORMAL PULSES, Normal ROM, Tenderness (Mild tenderness to right buttock), Neurovascularly Intact, Capillary Refill < 2 s, Other (straight leg raise negative). No: Edema, Temperature Abnormalties Neurological: Present: GCS=15, CN II-XII Intact, Speech Normal Skin: Present: Warm, Dry, Normal Color. No: Rashes Psychiatric: Present: Alert, Oriented x 3, Normal Insight, Normal Concentration <Louise Hobbs PA-C - Last Filed: 05/18/18 16:34> Vital Signs Temp Pulse Resp BP Pulse Ox 05/18/18 06:58 68 18 153/71 H 100 05/18/18 05:49 70 18 168/68 H 100 05/18/18 05:18 65 18 210/78 H 100 05/18/18 05:15 210/78 H 05/18/18 03:32 97.7 F 64 19 178/69 H 99 05/18/18 02:07 97.8 F 75 19 194/79 H 100 05/18/18 00:33 97.8 F 63 19 199/72 H 100 <Nguyễn Garcia - Last Filed: 05/19/18 06:11> Medical Decision Making ED Course and Treatment: 05/18/18 00:40 Impression: 88 year old male presents with lower back pain. Plan: -- Percocet -- Reassess and disposition Prior Visits: Notes and results from previous visits were reviewed. Progress Notes: BARBARA PHYSICAL DAMAGE APPRAISER reviewed : Patient received a Rx for tramadol on 05/10/18, percocet #30 tabs on 04/21/18, and percocet #20 tabs on 04/06/19 (both percocet Rx were written by Dr. Murdock) 05/18/18 01:49 Patient still c/o pain despite initial dose of percocet. He states usually one dose will help calm his pain. Given a 2nd dose of percocet. MRI of L spine and pelvis including the hips ordered. Case d/w medical laboratory technician and Dr. Frances, agrees with plan for observation under the hospitalist service and for MRI in the AM. Patient agrees with plan for further observation. <Louise Hobbs PA-C - Last Filed: 05/18/18 16:34> ED Course and Treatment: 05/19/18 06:11 The documented history was done by the physician crown perforator operator. The documented physical exam was done by the physician crown perforator operator. The documented procedures were done by the physician crown perforator operator, I was available for consultation during the PA/BLOCKER METAL BASE evaluation. The chart was reviewed by me, and I agree with the management and plan. - Medication Orders Current Medication Orders: Amlodipine Besylate (Norvasc) 5 mg PO DAILY [facility] Last Admin: 05/18/18 11:10 Dose: 5 mg MAR Pulse and Blood Pressure Document 05/18/18 11:10 SML (Rec: 05/18/18 11:10 SML [id number]) Blood Pressure Blood Pressure (110/65-135/85) 189/73 Aspirin (Ecotrin) 81 mg PO DAILY [facility] Last Admin: 05/18/18 11:07 Dose: 81 mg Atorvastatin Calcium (Lipitor) 20 mg PO QPM [facility] Last Admin: 05/18/18 17:42 Dose: 20 mg Gabapentin (Neurontin) 100 mg PO BID [facility]; Protocol Last Admin: 05/18/18 17:42 Dose: 100 mg Behavioural Document 05/18/18 17:42 SML (Rec: 05/18/18 17:42 SML [id number]) Maintenance Maintenance Dose Yes Heparin Sodium (Porcine) (Heparin) 5,000 units SC Q8 [facility]; Protocol Last Admin: 05/19/18 05:28 Dose: 5,000 units Subcutaneous Administrations Document 05/19/18 05:28 ZARAL (Rec: 05/19/18 05:29 ZARAL [id number]) Injection Site MAR Injection Site Right Abdomen Charges for Administration # of Subcutaneous Administrations 1 Hydralazine HCl (Apresoline) 10 mg IVP Q8 PRN PRN Reason: Systolic Blood Pressure Last Admin: 05/18/18 05:15 Dose: 10 mg IVP Administration Document 05/18/18 05:15 CNR (Rec: 05/18/18 05:16 CNR [id number]) Charges for Administration # of IVP Administrations 1 MAR Pulse and Blood Pressure Document 05/18/18 05:15 CNR (Rec: 05/18/18 05:16 CNR [id number]) Blood Pressure Blood Pressure (110/65-135/85) 210/78 Insulin Human Regular (Humulin R Low) 0 units SC ACHS [facility]; Protocol Last Admin: 05/18/18 21:50 Dose: Not Given Non-Admin Reason: Blood Sugar Parameter MAR Blood Glucose Document 05/18/18 21:50 [facility] (Rec: 05/18/18 21:50 [id number]) Blood Glucose Finger Stick Blood Glucose (70-120) 136 Lidocaine (Lidoderm) 1 ea TD DAILY [facility] Last Admin: 05/18/18 11:10 Dose: 1 ea Comments: r leg applied Losartan Potassium (Cozaar) 75 mg PO DAILY [facility] Last Admin: 05/18/18 12:44 Dose: 75 mg MAR Pulse and Blood Pressure Document 05/18/18 12:44 SML (Rec: 05/18/18 12:50 SML [id number]) Pulse Pulse Rate (56-106) 78 Blood Pressure Blood Pressure (110/65-135/85) 158/67 Magnesium Oxide (Mag-Ox) 200 mg PO DAILY [facility] Last Admin: 05/18/18 11:07 Dose: 200 mg Morphine Sulfate (Morphine) 2 mg IVP Q4H PRN PRN Reason: Pain, severe (8-10) Last Admin: 05/19/18 05:35 Dose: 2 mg MAR Pain Assessment Document 05/19/18 05:35 LUIS ENRIQUE (Rec: 05/19/18 05:35 [id number]) Pain Reassessment Is this a pain reassessment? No Sleep Is patient sleeping during reassessment? No Presence of Pain Presence of Pain Yes Location Pain Location Body Site Generalized IVP Administration Document 05/19/18 05:35 LUIS ENRIQUE (Rec: 05/19/18 05:35 [id number]) Charges for Administration # of IVP Administrations 1 Oxycodone/Acetaminophen (Percocet 5/325 Mg Tab) 1 tab PO TID PRN PRN Reason: Pain, moderate (4-7) Stop: 05/21/18 18:01 Pantoprazole Sodium (Protonix Ec Tab) 40 mg PO 0600 [facility] Last Admin: 05/19/18 05:29 Dose: 40 mg Polyethylene Glycol (Miralax) 17 gm PO BID [facility] Last Admin: 05/18/18 17:42 Dose: 17 gm Senna/Docusate Sodium (Senokot S 50 Mg-8.6 Mg) 1 tab PO DAILY [facility] Last Admin: 05/18/18 11:08 Dose: 1 tab Tamsulosin HCl (Flomax) 0.4 mg PO BID [facility] Last Admin: 05/18/18 17:42 Dose: 0.4 mg Discontinued Medications Dexamethasone (Decadron Inj) 8 mg IVP STAT STA Stop: 05/18/18 04:43 Last Admin: 05/18/18 05:15 Dose: 8 mg IVP Administration Document 05/18/18 05:15 CNR (Rec: 05/18/18 05:15 CNR [id number]) Charges for Administration # of IVP Administrations 1 Influenza Virus Vaccine (Flucelvax Quad [id number] Syr) 60 mcg IM .ONCE ONE Stop: 05/18/18 14:23 Oxycodone/Acetaminophen (Percocet 5/325 Mg Tab) 1 tab PO STAT STA Stop: 05/18/18 00:37 Last Admin: 05/18/18 01:04 Dose: 1 tab MAR Pain Assessment Document 05/18/18 01:04 OCS (Rec: 05/18/18 01:04 [id number] Pain Reassessment Is this a pain reassessment? No Sleep Is patient sleeping during reassessment? No Presence of Pain Presence of Pain Yes Pain Scale Used Protocol: PSCALES Pain Scale Used Numeric Location Left, Right or Bilateral Bilateral Upper or Lower Lower Pain Location Body Site Leg Description Description Constant Intensity of Pain at present 8 Pain Behavior Moaning Crying Irritability Aggravating Factors ADL's Oxycodone/Acetaminophen (Percocet 5/325 Mg Tab) 1 tab PO STAT STA Stop: 05/18/18 01:45 Last Admin: 05/18/18 02:11 Dose: 1 tab MAR Pain Assessment Document 05/18/18 02:11 OCS (Rec: 05/18/18 02:12 [id number] Pain Reassessment Is this a pain reassessment? Yes Sleep Is patient sleeping during reassessment? No Presence of Pain Presence of Pain Yes Pain Scale Used Protocol: [facility] Scale Used Numeric Location Left, Right or Bilateral Bilateral Pain Location Body Site Leg Description Description Constant Intensity of Pain at present 10 Pain Behavior Moaning Crying Irritability Facial Grimacing Aggravating Factors ADL's Pneumococcal Polyvalent Vaccine (Pneumovax 23 Vaccine) 0.5 ml IM .ONCE ONE Stop: 05/18/18 14:23 <Nguyễn Garcia - Last Filed: 05/19/18 06:11> - PA / BLOCKER [employer]AL [employer] / Resident Statement MD/ has reviewed & agrees with the documentation as recorded. - Scribe Statement The provider has reviewed the documentation as recorded by the Kaila Tate Provider Scribe Attestation: All medical record entries made by the Luiibangeles were at my direction and personally dictated by me. I have reviewed the chart and agree that the record accurately reflects my personal performance of the history, physical exam, medical decision making, and the department course for this patient. I have also personally directed, reviewed, and agree with the discharge instructions and disposition. <Louise Hobbs PA-C - Last Filed: 05/18/18 16:34> Disposition/Present on Arrival - Present on Arrival Any Indicators Present on Arrival: No History of DVT/PE: No History of Uncontrolled Diabetes: No Urinary Catheter: No History of Decub. Ulcer: No History Surgical Site Infection Following: None - Disposition Have Diagnosis and Disposition been Completed?: Yes Disposition Time: 02:00 Patient Plan: Observation <Louise Hobbs PA-C - Last Filed: 05/18/18 16:34> <Nguyễn Garcia - Last Filed: 05/19/18 06:11> - Disposition Diagnosis: Low back pain, Sciatica, Prostate cancer metastatic to bone Disposition: HOSPITALIZED Patient Problems: Current Active Problems Problem Status Onset Low back pain Acute Prostate cancer metastatic to bone Acute Sciatica Acute Condition: STABLE
--- NOTE | 2018-05-18 02:30 | CP.PCM.HP ---
<BaronAnay - Last Filed: 05/18/18 05:12> History of Present Illness - History of Present Illness History of Present Illness: PGY-[address] Frances CC: Intractable Low back/Hip/Leg pain, Prostate cancer metastatic to bone, Sciatia Mr Butts, 88 M, with PMH CAD s/p CABG (2013), 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 At baseline, pain mostly has pain in R hip and buttock radiating to leg, but the pain has been worsened in the past 2 weeks with new pain on L thigh. The pain was like a "jolt", constant, baseline at 5/10, but increased to 10/10. He was not able to sleep because of the pain. Dr. Murdock prescribed him medrol dosepak which helped at first but the pain came back more as the doses tapered. Patient states he has used the medrol dose jairo for 3 days, as well as tramadol, with no relief. (+) Associated weakness to his legs and having to use a cane to walk. (+) Pt falls 3 days. He has been falling often. ROS - (+) FALLS. last one 3 days ago. (+) Constipation Denies any fever/chills, bowel/bladder incontinence, numbness Denies KIMBROUGH, dizziness, CP, SOB, N/V/D, dysuria In ED: afebrile, 190s/70s, HR 75, RR 19, 100 RA ED given percocet x 2, with only mild relieve PMHx CAD s/p CABG __2013__, Aortic Stenosis s/p aortic valve replacement, Mitral valve ring 2014 ([facility]) - Stress test 2016: Normal LVEF. Mild apical/inferior defects suspicous of ischemia HTN Prostate cancer newly diagnosed prostate cancer in September 2017 with metastasis to the lumbar spine - s/p cystoscopy with laser vaporization of prostate for bladder outlet obstruction (09/2017) - Currently on radiation, session 10 yesterday, - Recent whole scan done, April 2018, [facility], [address] [place] [address] Sciatica with bulging discs - Mild-mod narrowing thecal sc L3-5 DM2 CKD stage __3_, Chronic anemia Hb 9 at baseline R middle lobe lung nodule, 3mm, CT 10/2017 Constipation, diverticulosis, Hx colon polyps Hx frequent falls. PSH CABG Aortic valve replacement FH Dad - prostate CA; mom - breast CA; sister - DM SH Former smoker quick 63 years ago. 3pack a day Denies illicit drug use ETOH once a month Ambulate with a cane He has 2 sons. elder son lives upstairs. Young son lives downstairs All NKDA Med Zytiga, 4 tablets daily + see SEP PMD: Dr Moreland Radiation Oncologist: Dr Garrison at [facility] Urologist: Dr Jeffries Neurologist: Dr Murdock Cardio: Trixie Nephro: Yumiko GI: Dr Menchaca Present on Admission - Present on Admission Any Indicators Present on Admission: No Past Patient History - Infectious Disease Hx of Infectious Diseases: None - Tetanus Immunizations Tetanus Immunization: Unknown - Past Medical History & Family History Past Medical History?: Yes - Past Social History Smoking Status: Never Smoked - CARDIAC Hx Cardiac Disorders: No - PULMONARY Hx Respiratory Disorders: Yes Hx Asthma: Yes - NEUROLOGICAL Hx Neurological Disorder: No - HEENT Hx HEENT Problems: No - RENAL Hx Chronic Kidney Disease: No - ENDOCRINE/METABOLIC Hx Endocrine Disorders: Yes Hx Diabetes Mellitus Type 2: Yes - HEMATOLOGICAL/ONCOLOGICAL Hx Blood Disorders: Yes Hx Blood Transfusions: Yes - INTEGUMENTARY Hx Dermatological Problems: No - MUSCULOSKELETAL/RHEUMATOLOGICAL Hx Musculoskeletal Disorders: No - GASTROINTESTINAL Hx Gastrointestinal Disorders: No - GENITOURINARY/GYNECOLOGICAL Hx Genitourinary Disorders: Yes Hx Prostate Problems: Yes - PSYCHIATRIC Hx Psychophysiologic Disorder: No Hx Substance Use: No - SURGICAL HISTORY Hx Coronary Artery Bypass Graft: Yes - ANESTHESIA Hx Anesthesia: Yes Hx Anesthesia Reactions: No Hx Malignant Hyperthermia: No Meds Allergies/Adverse Reactions: Allergies Allergy/AdvReac Type Severity Reaction Status Date / Time No Known Allergies Allergy Verified 11/24/17 04:58 Physical Exam - Constitutional Appears: No Acute Distress - Head Exam Head Exam: ATRAUMATIC, NORMAL INSPECTION, NORMOCEPHALIC - Eye Exam Eye Exam: EOMI, Normal appearance, PERRL. absent: Scleral icterus Pupil Exam: NORMAL ACCOMODATION - ENT Exam ENT Exam: Mucous Membranes Moist - Neck Exam Additional comments: supple, No jvd - Respiratory Exam Respiratory Exam: Clear to Auscultation Bilateral. absent: Rales, Rhonchi, Wheezes - Cardiovascular Exam Cardiovascular Exam: REGULAR RHYTHM, +S1, +S2. absent: Systolic Murmur - GI/Abdominal Exam GI & Abdominal Exam: Normal Bowel Sounds, Soft. absent: Distended, Firm, Guarding, Tenderness - Extremities Exam Extremities exam: Positive for: normal capillary refill, pedal pulses present. Negative for: calf tenderness Additional comments: No saddle paresthesia - Back Exam Back exam: absent: CVA tenderness (L), CVA tenderness (R) Additional comments: lower rib tenderness b/l iliac crest tenderness R hip/LE pain L thigh pain - Neurological Exam Neurological exam: Alert, CN II-XII Intact, Oriented x3 Additional comments: Motor 5/5 UE b/l; 4/5 LLE Sensory grossly intact rapid alternating movement intact - Psychiatric Exam Psychiatric exam: Normal Affect, Normal Mood - Skin Skin Exam: Dry, Normal Color, Warm Results - Vital Signs Recent Vital Signs: Last Vital Signs Temp 97.8 F 05/18/18 02:07 Pulse 75 05/18/18 02:07 Resp 19 05/18/18 02:07 BP 194/79 H 05/18/18 02:07 Pulse Ox 100 05/18/18 02:07 - Labs Result Diagrams: 05/18/18 03:27 05/18/18 03:27 Assessment & Plan - Assessment and Plan (Free Text) Plan: Mr Butts, 88 M, with PMH CAD s/p CABG (2013), newly diagnosed prostate cancer in September 2017 with metastasis to the lumbar spine (s/p laser vaporization of prostate and currently on radiation on lumbar spine, most recent one being yesterday, session #10), sciatica with bulging discs, CKD 3 and DM, C/O intractable low back/hip/LE pain, failed outpatient medrol dose jairo and tramadol. He was found to have new pain on L thigh and frequent falls. Intractable lower back, b/l hip, and b/l LE pain Likely radiculopathy in nature secondary to radiation irritation vs bone metastatsis from prostate cancer vs sciatia - MRI thoracic, lumbar spine and pelvis - Day team to get the whole body scan report from [place], [place] (test done 2 weeks ago) ; - Dr Murdock, neurology for radiculopathy management - Dr Puente, heme/onc for cancer bone metastasis management - Physical therapy - Percocet 1q4 PRN for moderate pain, Morphine IV 2q4 PRN for severe pain; Lidoderm; Decadron 8mg IVPx1 - start gabapentin 100 BID, Flexiril HS - follow up on UDS HTN - Hold home losartan due to elevated creatinine - Continue home Norvasc - hydrlazine PRN DM - Check A1C - ISSS CKD stage 3, stable - continue to trend BUN/Cre. Chronic anemia, Hb 9 - stable. No plan to transfuse. Hx Prostate CA s/p cystoscopy with laser vaporization of prostate, currently on radiation - Continue outpatient therapy - strict i/o - follow up urinalysis and urine culture. Observe off antibiotics Hx CAD s/p CABG __2014__, s/p aortic valve replacement and mitral ring - ASA, lipitor R middle lobe lung nodule, 3mm, CT 10/2017 - CT chest outpatient Constipation, diverticulosis, Hx colon polyps - miralax and Senokot. May consider relistor x 1 if failed miralax/senokot but need flat plate to r/o bowel obstruction and ausculation to r/o high pitch bowel sound Hx frequent falls, last fall 3 days ago - physical therapy, check B12/Vit D level pvx: heparin SC, protonix s/r/d/w Dr Frances <Vidhya Frances - Last Filed: 05/18/18 06:43> Results - Vital Signs Recent Vital Signs: Last Vital Signs Temp 97.7 F 05/18/18 03:32 Pulse 70 05/18/18 05:49 Resp 18 05/18/18 05:49 BP 168/68 H 05/18/18 05:49 Pulse Ox 100 05/18/18 05:49 - Labs Result Diagrams: 05/18/18 03:27 05/18/18 03:27 Labs: Laboratory Results - last 24 hr 05/18/18 05/18/18 05/18/18 03:27 03:27 03:40 WBC 6.8 D RBC 2.93 L Hgb 8.8 L Hct 26.5 L MCV 90.4 MCH 30.0 MCHC 33.2 RDW 16.6 H Plt Count 161 MPV 8.9 Gran % 73.8 H Lymph % (Auto) 14.7 L [place] % (Auto) 7.7 H Eos % (Auto) 3.4 Baso % (Auto) 0.4 Gran # 5.00 Lymph # (Auto) 1.0 L [place] # (Auto) 0.5 Eos # (Auto) 0.2 Baso # (Auto) 0.03 Sodium 138 Potassium 4.4 Chloride 111 H Carbon Dioxide 22 Anion Gap 9 L BUN 40 H Creatinine 1.4 Est GFR ( Amer) 58 Est GFR (Non-Af Amer) 48 Random Glucose 117 H Calcium 8.8 Phosphorus 3.8 Magnesium 1.9 Total Bilirubin 0.3 AST 23 ALT 23 Alkaline Phosphatase 113 Total Protein 6.5 Albumin 3.6 Globulin 2.9 Albumin/Globulin Ratio 1.2 Urine Color Urine Appearance Urine pH Ur Specific [place] Urine Protein Urine Glucose (UA) Urine Ketones Urine Blood Urine Nitrate Urine Bilirubin Urine Urobilinogen Ur Leukocyte Esterase Urine RBC Urine WBC Ur Epithelial Cells Urine Bacteria Urine Opiates Screen Negative Urine Methadone Screen Negative Ur Barbiturates Screen Negative Ur Phencyclidine Scrn Negative Ur Amphetamines Screen Negative U Benzodiazepines Scrn Negative U Oth Cocaine Metabols Negative U Cannabinoids Screen Negative 05/18/18 03:40 WBC RBC Hgb Hct MCV MCH MCHC RDW Plt Count MPV Gran % Lymph % (Auto) [place] % (Auto) Eos % (Auto) Baso % (Auto) Gran # Lymph # (Auto) [place] # (Auto) Eos # (Auto) Baso # (Auto) Sodium Potassium Chloride Carbon Dioxide Anion Gap BUN Creatinine Est GFR ( Amer) Est GFR (Non-Af Amer) Random Glucose Calcium Phosphorus Magnesium Total Bilirubin AST ALT Alkaline Phosphatase Total Protein Albumin Globulin Albumin/Globulin Ratio Urine Color Yellow Urine Appearance Clear Urine pH 6.0 Ur Specific [place] 1.025 Urine Protein 30 H Urine Glucose (UA) Negative Urine Ketones Negative Urine Blood Negative Urine Nitrate Negative Urine Bilirubin Negative Urine Urobilinogen 0.2 Ur Leukocyte Esterase Trace H Urine RBC 0 - 2 Urine WBC 1 - 3 Ur Epithelial Cells 0 - 2 Urine Bacteria Occ Urine Opiates Screen Urine Methadone Screen Ur Barbiturates Screen Ur Phencyclidine Scrn Ur Amphetamines Screen U Benzodiazepines Scrn U Oth Cocaine Metabols U Cannabinoids Screen Attending/Attestation - Attestation I have personally seen and examined this patient.: Yes I have fully participated in the care of the patient.: Yes I have reviewed all pertinent clinical information: Yes
[2018-05-18 03:42] LABS: BASO # 0.03 K/mm3 (0.0-2.0); BASO % 0.4 % (0.0-3.0); EOS # 0.2 (0.0-0.7); EOS % 3.4 % (1.5-5.0); GRAN % 73.8 % (50.0-68.0); HEMOGLOBIN 8.8 g/dL (14.0-18.0); LYMPH % 14.7 % (22.0-35.0); MEAN CELL VOLUME 90.4 fl (80.0-105.0); MEAN CORPUSCULAR HGB CONC 33.2 g/dl (31.0-37.0); MEAN PLATELET VOLUME 8.9 fl (7.0-11.0); MONO # 0.5 (0.1-0.6); MONO % 7.7 % (1.0-6.0); RBC 2.93 10^6/uL (3.5-6.1); RED CELL DISTRIBUTION WIDTH 16.6 % (11.5-14.5); WHITE BLOOD COUNT 6.8 10^3/ul (4.5-11.0)
[2018-05-18 03:56] LABS: ALB/GLOB RATIO 1.2 (1.1-1.8); ALBUMIN 3.6 g/dL (3.0-4.8); CALCIUM 8.8 mg/dL (8.4-10.5)
[2018-05-18 04:16] LABS: URINE BILIRUBIN NEGATIVE (NEGATIVE); URINE BLOOD NEGATIVE (NEGATIVE); URINE GLUCOSE (UA) NEGATIVE (NEGATIVE); URINE LEUKOCYTE ESTERASE TRACE Leu/uL (NEGATIVE); URINE PROTEIN 30 mg/dL (<30 mg/dL); URINE UROBILINOGEN 0.2 E.U./dL (<1 E.U./dL)
[2018-05-18 04:33] LABS: URINE APPEARANCE CLEAR (CLEAR); URINE COLOR YELLOW (YELLOW)
[2018-05-18] MEDS ORDERED: Oxycodone/Acetaminophen 5/325 mg Tab PO PRN (04:38)
[2018-05-18 04:42] LABS: URINE BACTERIA OCC (NEG); URINE EPITHELIAL CELLS 0 - 2 /hpf (0-5); URINE RBC 0 - 2 /hpf (0-2)
[2018-05-18] MEDS ORDERED: Dexamethasone 4 mg/1 ml IVP STA (04:42)
[2018-05-18 04:52] LABS: BARBITURATES, UR NEGATIVE (NEGATIVE); BENZODIAZEPINES, UR NEGATIVE (NEGATIVE); OPIATES, UR NEGATIVE (NEGATIVE); PHENCYCLIDINE, UR NEGATIVE (NEGATIVE)
[2018-05-18] MEDS: Morphine 2 mg/ml ISec IVP PRN ×3 (05:08→20:24)
[2018-05-18] MEDS: Pantoprazole 40 mg EC Tab PO SCH (05:16)
[2018-05-18] MEDS: Insulin Reg-LOW-Coverage SC SCH ×4 (07:30→21:50)
[2018-05-18] MEDS ORDERED: POLYETHYLENE GLYCOL 3350 17 GM/Dose PACKET PO SCH (10:00)
[2018-05-18] MEDS: POLYETHYLENE GLYCOL 3350 17 GM/Dose PACKET PO SCH ×2 (11:06→17:42)
[2018-05-18] MEDS: Magnesium Oxide 400 mg Tab UD PO SCH (11:07)
[2018-05-18] MEDS: Docusate-Senna 50 mg-8.6 mg Tab PO SCH (11:08)
[2018-05-18] MEDS: Lidocaine 5% Patch TD SCH (11:10)
--- NOTE | 2018-05-18 13:04 | RAD ---
Date of service: 05/18/2018 PROCEDURE: Radiographs of the chest and bilateral ribs HISTORY: r/o fractures COMPARISON: 10/11/2017 TECHNIQUE: Frontal radiograph of the chest and multiple oblique radiographs of the bilateral ribs were obtained. FINDINGS: RIGHT RIBS: No fracture or focal lesion visualized. LEFT RIBS: No fracture or focal lesion visualized. LUNGS: Clear. PLEURA: No pneumothorax or pleural fluid. CARDIOVASCULAR: No radiographic findings to suggest acute or significant cardiovascular disease. Incidental Finding(s): Postoperative changes related to sternotomy. OTHER FINDINGS: None. IMPRESSION: Unremarkable radiographs of the chest and bilateral ribs. No rib fracture.
[2018-05-18] MEDS ORDERED: Influenza Vaccine 60 mcg/0.5 mL SYR (4YR UP) IM ONE (14:22)
[2018-05-18] MEDS ORDERED: Pneumococcal 23-Valent Vaccine IM ONE (14:22)
--- NOTE | 2018-05-19 02:37 | CON ---
DATE: 05/18/2018 HISTORY OF PRESENT ILLNESS: This is an 88-year-old white male with past medical history of coronary artery disease, status post CABG, recently diagnosed with prostate cancer with mets to the lumbar spine and diabetes and chronic kidney disease. The patient was complaining of low back pain radiating to the leg, but in the hospital only to the left thigh, in the hospital for a brief time now, feels much better, and I was called to evaluate the patient. PAST MEDICAL HISTORY: As above. SOCIAL HISTORY: Does not smoke, does not drink. PHYSICAL EXAMINATION VITAL SIGNS: Blood pressure was 194/79. The last blood pressure was 168/68. HEENT: Normocephalic, atraumatic. NECK: Supple. NEUROLOGIC: Alert, awake, and oriented x3. No aphasia. Cranial nerves II through XII are tested. Pupils reactive. Spontaneous movement of the extremities noted. Deep tendon reflexes are 1+. Both plantars are downgoing. Sensory appears intact. Cerebellar, gait normal. LABORATORY DATA: Hemoglobin 8.8, hematocrit 26.5, anemia. Sodium 138, potassium 4.4, chloride 111, CO2 of 22, glucose 117, BUN 40, creatinine 1.4. IMPRESSION: The patient is ambulating to the bathroom with help and the patient's symptoms are much better. Continue present management. We will follow up. Javan Murdock MD
[2018-05-19] MEDS: Pantoprazole 40 mg EC Tab PO SCH (05:29)
[2018-05-19] MEDS: Morphine 2 mg/ml ISec IVP PRN ×3 (05:35→17:46)
[2018-05-19 07:15] LABS: BASO # 0.01 K/mm3 (0.0-2.0); BASO % 0.2 % (0.0-3.0); EOS # 0.2 (0.0-0.7); EOS % 2.8 % (1.5-5.0); GRAN # 4.72 (1.4-6.5); GRAN % 72.5 % (50.0-68.0); HEMOGLOBIN 8.5 g/dL (14.0-18.0); LYMPH # 1.2 (1.2-3.4); LYMPH % 18.7 % (22.0-35.0); MEAN CELL VOLUME 90.2 fl (80.0-105.0); MEAN CORPUSCULAR HEMOGLOBIN 29.8 pg (25.0-35.0); MEAN CORPUSCULAR HGB CONC 33.1 g/dl (31.0-37.0); MONO # 0.4 (0.1-0.6); MONO % 5.8 % (1.0-6.0); RBC 2.85 10^6/uL (3.5-6.1); RED CELL DISTRIBUTION WIDTH 16.7 % (11.5-14.5); WHITE BLOOD COUNT 6.5 10^3/ul (4.5-11.0)
[2018-05-19 07:42] LABS: BLOOD UREA NITROGEN 41 mg/dL (7-21); CALCIUM 8.7 mg/dL (8.4-10.5); GFR NON-AFRICAN AMERICAN 57
[2018-05-19] MEDS: Insulin Reg-LOW-Coverage SC SCH ×4 (08:27→21:44)
[2018-05-19] MEDS: Lidocaine 5% Patch TD SCH (10:25)
[2018-05-19] MEDS: Magnesium Oxide 400 mg Tab UD PO SCH (10:29)
[2018-05-19] MEDS: POLYETHYLENE GLYCOL 3350 17 GM/Dose PACKET PO SCH ×2 (10:30→17:46)
[2018-05-19] MEDS: Docusate-Senna 50 mg-8.6 mg Tab PO SCH (10:51)
[2018-05-19] MEDS ORDERED: Morphine 2 mg/ml ISec IVP STA (12:14)
[2018-05-19] MEDS ORDERED: ZYTIGA 250 MG PO SCH (13:00)
[2018-05-19] MEDS: ZYTIGA 250 MG PO SCH (14:16)
[2018-05-19] MEDS ORDERED: Magnesium Citrate Oral SOL (300 ml) PO ONE (14:57)
--- NOTE | 2018-05-19 19:55 | CP.PCM.PN ---
<Neptali Alan - Last Filed: 05/19/18 19:55> Subjective - Date & Time of Evaluation Date of Evaluation: 05/19/18 Time of Evaluation: 07:00 - Subjective Subjective: Pt seen and examined, reports that his pain is well controlled at this time. No new complaints Objective - Vital Signs/Intake and Output Vital Signs (last 24 hours): Temp Pulse Resp BP Pulse Ox 98.8 F 79 20 151/66 H 97 05/19/18 17:27 05/19/18 17:27 05/19/18 17:27 05/19/18 17:27 05/19/18 17:27 Intake and Output: 05/19/18 05/20/18 18:59 06:59 Intake Total 1320 Output Total 1000 Balance 320 - Medications Medications: Current Medications Amlodipine Besylate (Norvasc) 5 mg PO DAILY [facility] Last Admin: 05/19/18 10:28 Dose: 5 mg Aspirin (Ecotrin) 81 mg PO DAILY [facility] Last Admin: 05/19/18 10:28 Dose: 81 mg Atorvastatin Calcium (Lipitor) 20 mg PO QPM [facility] Last Admin: 05/19/18 17:46 Dose: 20 mg Gabapentin (Neurontin) 100 mg PO BID [facility]; Protocol Last Admin: 05/19/18 17:46 Dose: 100 mg Heparin Sodium (Porcine) (Heparin) 5,000 units SC Q8 [facility]; Protocol Last Admin: 05/19/18 14:18 Dose: 5,000 units Home Med (Home Med) 2 unit PO DAILY [facility] Last Admin: 05/19/18 14:16 Dose: 2 unit Hydralazine HCl (Apresoline) 10 mg IVP Q8 PRN PRN Reason: Systolic Blood Pressure Last Admin: 05/18/18 05:15 Dose: 10 mg Insulin Human Regular (Humulin R Low) 0 units SC ACHS [facility]; Protocol Last Admin: 05/19/18 17:31 Dose: Not Given Lidocaine (Lidoderm) 1 ea TD DAILY [facility] Last Admin: 05/19/18 10:25 Dose: 1 ea Losartan Potassium (Cozaar) 75 mg PO DAILY [facility] Last Admin: 05/19/18 10:28 Dose: 75 mg Magnesium Oxide (Mag-Ox) 200 mg PO DAILY [facility] Last Admin: 05/19/18 10:29 Dose: 200 mg Morphine Sulfate (Morphine) 2 mg IVP Q4H PRN PRN Reason: Pain, severe (8-10) Last Admin: 05/19/18 17:46 Dose: 2 mg Oxycodone/Acetaminophen (Percocet 5/325 Mg Tab) 1 tab PO TID PRN PRN Reason: Pain, moderate (4-7) Stop: 05/21/18 18:01 Pantoprazole Sodium (Protonix Ec Tab) 40 mg PO 0600 [facility] Last Admin: 05/19/18 05:29 Dose: 40 mg Polyethylene Glycol (Miralax) 17 gm PO BID [facility] Last Admin: 05/19/18 17:46 Dose: 17 gm Prednisone (Prednisone Tab) 5 mg PO DAILY [facility] Last Admin: 05/19/18 14:16 Dose: 5 mg Senna/Docusate Sodium (Senokot S 50 Mg-8.6 Mg) 1 tab PO DAILY [facility] Last Admin: 05/19/18 10:51 Dose: 1 tab Tamsulosin HCl (Flomax) 0.4 mg PO BID [facility] Last Admin: 05/19/18 17:47 Dose: 0.4 mg - Labs Labs: 05/19/18 06:30 05/19/18 06:30 - Constitutional Appears: No Acute Distress - Head Exam Head Exam: ATRAUMATIC, NORMAL INSPECTION, NORMOCEPHALIC - Eye Exam Eye Exam: EOMI - ENT Exam ENT Exam: Mucous Membranes Moist - Respiratory Exam Respiratory Exam: Clear to Ausculation Bilateral, NORMAL BREATHING PATTERN. absent: Wheezes, Respiratory Distress, Stridor - Cardiovascular Exam Cardiovascular Exam: RRR, +S1, +S2. absent: Diastolic murmur - GI/Abdominal Exam GI & Abdominal Exam: Soft, Normal Bowel Sounds. absent: Tenderness - Extremities Exam Extremities Exam: Full ROM. absent: Pedal Edema - Neurological Exam Neurological Exam: Alert, Awake, Oriented x3 - Psychiatric Exam Psychiatric exam: Normal Affect, Normal Mood - Skin Skin Exam: Dry, Intact, Normal Color, Warm Assessment and Plan - Assessment and Plan (Free Text) Assessment: Mr Butts, 88 M, with PMH CAD s/p CABG (2013), newly diagnosed prostate cancer in September 2017 with metastasis to the lumbar spine (s/p laser vaporization of prostate and currently on radiation on lumbar spine, most recent one being yesterday, session #10), sciatica with bulging discs, CKD 3 and DM, C/O intractable low back/hip/LE pain, failed outpatient medrol dose jairo and tramadol. He was found to have new pain on L thigh and frequent falls. Pt refusing oral pain medications. Pain controlled with morphine. Pt having diffi culty ambulating longer distances with LBP and limited LE power while working with PE. PT recommends TCU. Plan: Intractable lower back, b/l hip, and b/l LE pain - Likely radiculopathy in nature secondary to radiation irritation vs bone metastasis from prostate cancer vs sciatica - Percocet 1q4 PRN for moderate pain, Morphine IV 2q4 PRN for severe pain; Lidoderm; Decadron 8mg IVPx1 - continue gabapentin 100 BID - Pt refusing MRI, Xray of ribs negative - Dr Murdock, neurology for radiculopathy management - Dr Puente, heme/onc for cancer bone metastasis management - Physical therapy recommends TCU - TCU eval ordered Constipation, diverticulosis, Hx colon polyps - miralax and Senokot. - patient was given one time dose Mg citrate HTN - restarted home losartan, Cr 1.2 - Continue home Norvasc - hydralazine PRN DM - A1C 6.5% - ISS CKD stage 3, stable - continue to trend BUN/Cre. Chronic anemia - Hb 9 - stable. No plan to transfuse. Hx Prostate CA s/p cystoscopy with laser vaporization of prostate, currently on radiation - Continue home flomax - strict i/o Hx CAD s/p CABG __2014__, s/p aortic valve replacement and mitral ring - continue home ASA, lipitor - heart healthy diet - pt on remote Telemetry R middle lobe lung nodule - 3mm noted on previous CT 10/2017 - CT chest outpatient Hx frequent falls, last fall 3 days ago - physical therapy - B12 700, Vit D 57.1 Ppx - heparin - protonix Pt seen and examined assessment and plan discussed with Dr Quentin Alan PGY1 <Flo Saavedra - Last Filed: 05/21/18 14:32> Objective - Vital Signs/Intake and Output Vital Signs (last 24 hours): Temp Pulse Resp BP Pulse Ox 98.1 F 69 18 155/62 H 98 05/21/18 09:05 05/21/18 10:15 05/21/18 09:05 05/21/18 10:15 05/21/18 09:05 Intake and Output: 05/21/18 05/21/18 06:59 18:59 Intake Total 1400 Output Total 1200 Balance 200 - Medications Medications: Current Medications Amlodipine Besylate (Norvasc) 5 mg PO DAILY [facility] Last Admin: 05/21/18 10:15 Dose: 5 mg Aspirin (Ecotrin) 81 mg PO DAILY [facility] Last Admin: 05/21/18 10:13 Dose: 81 mg Atorvastatin Calcium (Lipitor) 20 mg PO QPM [facility] Last Admin: 05/20/18 17:48 Dose: 20 mg Gabapentin (Neurontin) 100 mg PO BID [facility]; Protocol Last Admin: 05/21/18 10:13 Dose: 100 mg Heparin Sodium (Porcine) (Heparin) 5,000 units SC Q8 [facility]; Protocol Last Admin: 05/21/18 14:22 Dose: 5,000 units Home Med (Home Med) 2 unit PO 0700 [facility] Hydralazine HCl (Apresoline) 10 mg IVP Q8 PRN PRN Reason: Systolic Blood Pressure Last Admin: 05/18/18 05:15 Dose: 10 mg Insulin Human Regular (Humulin R Low) 0 units SC ACHS [facility]; Protocol Last Admin: 05/21/18 12:15 Dose: 3 units Lidocaine (Lidoderm) 1 ea TD DAILY [facility] Last Admin: 05/21/18 10:12 Dose: 1 ea Losartan Potassium (Cozaar) 75 mg PO DAILY [facility] Last Admin: 05/21/18 10:13 Dose: 75 mg Magnesium Oxide (Mag-Ox) 200 mg PO DAILY [facility] Last Admin: 05/21/18 10:14 Dose: 200 mg Morphine Sulfate (Morphine) 2 mg IVP Q4H PRN PRN Reason: Pain, severe (8-10) Last Admin: 05/21/18 00:35 Dose: 2 mg Oxycodone/Acetaminophen (Percocet 5/325 Mg Tab) 1 tab PO Q6H PRN PRN Reason: Pain, moderate (4-7) Stop: 05/21/18 15:54 Pantoprazole Sodium (Protonix Ec Tab) 40 mg PO 0600 [facility] Last Admin: 05/21/18 05:30 Dose: 40 mg Polyethylene Glycol (Miralax) 17 gm PO BID [facility] Last Admin: 05/21/18 10:11 Dose: 17 gm Prednisone (Prednisone Tab) 5 mg PO 0700 [facility] Senna/Docusate Sodium (Senokot S 50 Mg-8.6 Mg) 1 tab PO DAILY [facility] Last Admin: 05/21/18 10:14 Dose: 1 tab Tamsulosin HCl (Flomax) 0.4 mg PO BID [facility] Last Admin: 05/21/18 10:13 Dose: 0.4 mg - Labs Labs: 05/21/18 08:00 05/21/18 08:00 Attending/Attestation - Attestation I have personally seen and examined this patient.: Yes I have fully participated in the care of the patient.: Yes I have reviewed all pertinent clinical information, including history, physical exam and plan: Yes Notes (Text): 05/21/18 14:32 Medical record note made by the resident after discussion with my direction and input after the patient was personally seen and examined by me. I have reviewed the chart and agree that the record accurately reflects by personal performance of the history, physical exam, data review, and medical decision-making, in the course for the patient. I have also personally directed the plan of care.
[2018-05-19] MEDS: Oxycodone/Acetaminophen 5/325 mg Tab PO PRN (20:07)
[2018-05-20] MEDS: Morphine 2 mg/ml ISec IVP PRN (02:58)
[2018-05-20] MEDS: Pantoprazole 40 mg EC Tab PO SCH (05:30)
[2018-05-20 07:09] LABS: BASO # 0.01 K/mm3 (0.0-2.0); BASO % 0.2 % (0.0-3.0); EOS # 0.1 (0.0-0.7); EOS % 2.8 % (1.5-5.0); GRAN # 3.9 (1.4-6.5); GRAN % 76.9 % (50.0-68.0); HEMOGLOBIN 9.5 g/dL (14.0-18.0); LYMPH # 0.8 (1.2-3.4); LYMPH % 15.2 % (22.0-35.0); MEAN CORPUSCULAR HEMOGLOBIN 29.6 pg (25.0-35.0); MEAN CORPUSCULAR HGB CONC 32.9 g/dl (31.0-37.0); MEAN PLATELET VOLUME 9.2 fl (7.0-11.0); MONO # 0.3 (0.1-0.6); MONO % 4.9 % (1.0-6.0); RBC 3.21 10^6/uL (3.5-6.1); RED CELL DISTRIBUTION WIDTH 16.6 % (11.5-14.5); WHITE BLOOD COUNT 5.1 10^3/ul (4.5-11.0)
[2018-05-20 07:35] LABS: BLOOD UREA NITROGEN 39 mg/dL (7-21); CALCIUM 8.8 mg/dL (8.4-10.5); GFR NON-AFRICAN AMERICAN 57
[2018-05-20] MEDS: Insulin Reg-LOW-Coverage SC SCH ×4 (08:30→22:09)
[2018-05-20] MEDS: ZYTIGA 250 MG PO SCH (09:43)
[2018-05-20] MEDS: Docusate-Senna 50 mg-8.6 mg Tab PO SCH (09:45)
[2018-05-20] MEDS: Magnesium Oxide 400 mg Tab UD PO SCH (09:46)
[2018-05-20] MEDS: Lidocaine 5% Patch TD SCH (09:49)
[2018-05-20] MEDS: POLYETHYLENE GLYCOL 3350 17 GM/Dose PACKET PO SCH ×2 (13:14→17:48)
--- NOTE | 2018-05-20 13:46 | CP.PCM.PN ---
<Neptali Alan - Last Filed: 05/20/18 13:56> Subjective - Date & Time of Evaluation Date of Evaluation: 05/20/18 Time of Evaluation: 13:44 - Subjective Subjective: Pt seen and examined this morning. Pt denies chest pain, SOB. Pt reports he still experiences pain, but it is well controlled Objective - Vital Signs/Intake and Output Vital Signs (last 24 hours): Temp Pulse Resp BP Pulse Ox 97.7 F 79 20 143/64 99 05/20/18 06:00 05/20/18 10:00 05/20/18 06:00 05/20/18 09:47 05/20/18 06:00 Intake and Output: 05/20/18 05/20/18 06:59 18:59 Intake Total 2960 Output Total 2650 Balance 310 - Medications Medications: Current Medications Amlodipine Besylate (Norvasc) 5 mg PO DAILY [facility] Last Admin: 05/20/18 09:47 Dose: 5 mg Aspirin (Ecotrin) 81 mg PO DAILY [facility] Last Admin: 05/20/18 09:47 Dose: 81 mg Atorvastatin Calcium (Lipitor) 20 mg PO QPM [facility] Last Admin: 05/19/18 17:46 Dose: 20 mg Gabapentin (Neurontin) 100 mg PO BID [facility]; Protocol Last Admin: 05/20/18 09:46 Dose: 100 mg Heparin Sodium (Porcine) (Heparin) 5,000 units SC Q8 [facility]; Protocol Last Admin: 05/20/18 13:31 Dose: 5,000 units Home Med (Home Med) 2 unit PO DAILY [facility] Last Admin: 05/20/18 09:43 Dose: 2 unit Hydralazine HCl (Apresoline) 10 mg IVP Q8 PRN PRN Reason: Systolic Blood Pressure Last Admin: 05/18/18 05:15 Dose: 10 mg Insulin Human Regular (Humulin R Low) 0 units SC ACHS [facility]; Protocol Last Admin: 05/20/18 12:35 Dose: Not Given Lidocaine (Lidoderm) 1 ea TD DAILY [facility] Last Admin: 05/20/18 09:49 Dose: 1 ea Losartan Potassium (Cozaar) 75 mg PO DAILY [facility] Last Admin: 05/20/18 09:44 Dose: 75 mg Magnesium Oxide (Mag-Ox) 200 mg PO DAILY [facility] Last Admin: 05/20/18 09:46 Dose: 200 mg Morphine Sulfate (Morphine) 2 mg IVP Q4H PRN PRN Reason: Pain, severe (8-10) Last Admin: 05/20/18 02:58 Dose: 2 mg Oxycodone/Acetaminophen (Percocet 5/325 Mg Tab) 1 tab PO TID PRN PRN Reason: Pain, moderate (4-7) Stop: 05/21/18 18:01 Last Admin: 05/19/18 20:07 Dose: 1 tab Pantoprazole Sodium (Protonix Ec Tab) 40 mg PO 0600 [facility] Last Admin: 05/20/18 05:30 Dose: 40 mg Polyethylene Glycol (Miralax) 17 gm PO BID [facility] Last Admin: 05/20/18 13:14 Dose: Not Given Prednisone (Prednisone Tab) 5 mg PO DAILY [facility] Last Admin: 05/20/18 09:47 Dose: 5 mg Senna/Docusate Sodium (Senokot S 50 Mg-8.6 Mg) 1 tab PO DAILY [facility] Last Admin: 05/20/18 09:45 Dose: 1 tab Tamsulosin HCl (Flomax) 0.4 mg PO BID [facility] Last Admin: 05/20/18 09:45 Dose: 0.4 mg - Labs Labs: 05/20/18 06:30 05/20/18 06:30 - Constitutional Appears: No Acute Distress - Head Exam Head Exam: NORMAL INSPECTION, NORMOCEPHALIC - Eye Exam Eye Exam: EOMI - ENT Exam ENT Exam: Mucous Membranes Moist - Respiratory Exam Respiratory Exam: Clear to Ausculation Bilateral, NORMAL BREATHING PATTERN. ab sent: Accessory Muscle Use, Wheezes, Respiratory Distress, Stridor - Cardiovascular Exam Cardiovascular Exam: RRR, +S1, +S2. absent: Diastolic murmur, Murmur - GI/Abdominal Exam GI & Abdominal Exam: Soft, Normal Bowel Sounds. absent: Tenderness - Extremities Exam Extremities Exam: Full ROM. 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 He was found to have new pain on L thigh and frequent falls. Pt ref using oral pain medications. Pain controlled with morphine. Pt having difficulty ambulating longer distances with LBP and limited LE power while working with PE. PT recommends TCU. Plan: Intractable lower back, b/l hip, and b/l LE pain - Likely radiculopathy in nature secondary to radiation irritation vs bone metastasis from prostate cancer vs sciatica - Percocet 1q4 PRN for moderate pain, Morphine IV 2q4 PRN for severe pain; Lidoderm; Decadron 8mg IVPx1 - continue gabapentin 100 BID - Refusing MRI, Xray of ribs negative - Dr Murdock, neurology for radiculopathy management - Dr Puente, heme/onc for cancer bone metastasis management - Physical therapy recommends TCU - TCU eval ordered, follow up recommendations Constipation, diverticulosis, Hx colon polyps - miralax and Senokot. - patient was given one time dose Mg citrate - pt reports BM HTN - restarted home losartan, BUN 39, Cr 1.2 - Continue home Norvasc - hydralazine PRN DM - A1C 6.5% - ISS CKD stage 3, stable - continue to trend BUN/Cr Chronic anemia - Hb 9 - stable. No plan to transfuse. Hx Prostate CA s/p cystoscopy with laser vaporization of prostate, currently on radiation - Continue home flomax - strict i/o Hx CAD s/p CABG __2013__, s/p aortic valve replacement and mitral ring - continue home ASA, lipitor - heart healthy diet - pt on remote Telemetry R middle lobe lung nodule - 3mm noted on previous CT 10/2017 - CT chest outpatient Hx frequent falls, last fall 3 days ago - physical therapy - B12 700, Vit D 57.1 Ppx - heparin - protonix Pt seen and examined assessment and plan discussed with Dr Quentin Alan PGY1 <Flo Saavedra - Last Filed: 05/21/18 14:31> Objective - Vital Signs/Intake and Output Vital Signs (last 24 hours): Temp Pulse Resp BP Pulse Ox 98.1 F 69 18 155/62 H 98 10/20/18 09:05 05/21/18 10:15 05/21/18 09:05 05/21/18 10:15 05/21/18 09:05 Intake and Output: 05/21/18 05/21/18 06:59 18:59 Intake Total 1400 Output Total 1200 Balance 200 - Medications Medications: Current Medications Amlodipine Besylate (Norvasc) 5 mg PO DAILY [facility] Last Admin: 05/21/18 10:15 Dose: 5 mg Aspirin (Ecotrin) 81 mg PO DAILY [facility] Last Admin: 05/21/18 10:13 Dose: 81 mg Atorvastatin Calcium (Lipitor) 20 mg PO QPM [facility] Last Admin: 05/20/18 17:48 Dose: 20 mg Gabapentin (Neurontin) 100 mg PO BID [facility]; Protocol Last Admin: 05/21/18 10:13 Dose: 100 mg Heparin Sodium (Porcine) (Heparin) 5,000 units SC Q8 [facility]; Protocol Last Admin: 05/21/18 14:22 Dose: 5,000 units Home Med (Home Med) 2 unit PO 0700 [facility] Hydralazine HCl (Apresoline) 10 mg IVP Q8 PRN PRN Reason: Systolic Blood Pressure Last Admin: 05/18/18 05:15 Dose: 10 mg Insulin Human Regular (Humulin R Low) 0 units SC ACHS [facility]; Protocol Last Admin: 05/21/18 12:15 Dose: 3 units Lidocaine (Lidoderm) 1 ea TD DAILY [facility] Last Admin: 05/21/18 10:12 Dose: 1 ea Losartan Potassium (Cozaar) 75 mg PO DAILY [facility] Last Admin: 05/21/18 10:13 Dose: 75 mg Magnesium Oxide (Mag-Ox) 200 mg PO DAILY [facility] Last Admin: 05/21/18 10:14 Dose: 200 mg Morphine Sulfate (Morphine) 2 mg IVP Q4H PRN PRN Reason: Pain, severe (8-10) Last Admin: 05/21/18 00:35 Dose: 2 mg Oxycodone/Acetaminophen (Percocet 5/325 Mg Tab) 1 tab PO Q6H PRN PRN Reason: Pain, moderate (4-7) Stop: 05/21/18 15:54 Pantoprazole Sodium (Protonix Ec Tab) 40 mg PO 0600 [facility] Last Admin: 05/21/18 05:30 Dose: 40 mg Polyethylene Glycol (Miralax) 17 gm PO BID [facility] Last Admin: 05/21/18 10:11 Dose: 17 gm Prednisone (Prednisone Tab) 5 mg PO 0700 [facility] Senna/Docusate Sodium (Senokot S 50 Mg-8.6 Mg) 1 tab PO DAILY [facility] Last Admin: 05/21/18 10:14 Dose: 1 tab Tamsulosin HCl (Flomax) 0.4 mg PO BID [facility] Last Admin: 05/21/18 10:13 Dose: 0.4 mg - Labs Labs: 05/21/18 08:00 05/21/18 08:00 Attending/Attestation - Attestation I have personally seen and examined this patient.: Yes I have fully participated in the care of the patient.: Yes I have reviewed all pertinent clinical information, including history, physical exam and plan: Yes Notes (Text): 05/21/18 14:31 Medical record note made by the resident after discussion with my direction and input after the patient was personally seen and examined by me. I have reviewed the chart and agree that the record accurately reflects by personal performance of the history, physical exam, data review, and medical decision-making, in the course for the patient. I have also personally directed the plan of care.
--- NOTE | 2018-05-20 13:51 | CP.PCM.CON ---
History of Present Illness - History of Present Illness History of Present Illness: 88 year old male patient with PMH CAD s/p CABG (2013), newly diagnosed prostate cancer in September with metastasis to the lumbar spine s/p palliative RT and is on Zytiga which was prescribed by his oncologist at [facility] Dr. Vieira. Patient was admitted on Wednesday for intractable lower back pain 05/11 which prompted him to seek medical attention at the hospital. Pain was radiating down his right lower leg, exacerbated with movement, no relieved with tramadol. States that Dr. Vieira had started him on steroids which the patient stopped taking after one day. Since his admission he states he feels better, pain is better controlled, no stool/urine incontinence, numbness or tingling of the lower extremities. Patient is currently awaiting on discharge to rehab center. Currently denies any chest pain, fevers, chills, nausea, vomiting, or abdominal pain. ROS - all systems reviewed and are negative other than what is mentioned above PMHx CAD s/p CABG __2013__, Aortic Stenosis s/p aortic valve replacement, Mitral valve ring 2014 ([facility]) - Stress test 2017: Normal LVEF. 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 PSH CABG Aortic valve replacement FH Dad - prostate CA; mom - breast CA; sister - DM SH Former smoker quick 63 years ago. 3pack a day Denies illicit drug use ETOH once a month Ambulate with a cane He has 2 sons. elder son lives upstairs. Young son lives downstairs All NKDA Med Zytiga, 2 tablets daily + prednisone 5mg Review of Systems - Constitutional Constitutional: As Per HPI - EENT Eyes: As Per HPI Ears: As Per HPI Nose/Mouth/Throat: As Per HPI - Cardiovascular Cardiovascular: As Per HPI - Respiratory Respiratory: As Per HPI - Gastrointestinal Gastrointestinal: As Per HPI - Reproductive: Male Reproductive:Male: As Per HPI - Musculoskeletal Musculoskeletal: As Per HPI - Integumentary Integumentary: As Per HPI - Neurological Neurological: As Per HPI - Psychiatric Psychiatric: As Per HPI - Endocrine Endocrine: As Per HPI - Hematologic/Lymphatic Hematologic: As Per HPI Past Patient History - Infectious Disease Hx of Infectious Diseases: None - Tetanus Immunizations Tetanus Immunization: Unknown - Past Medical History & Family History Past Medical History?: Yes - Past Social History Smoking Status: Never Smoked - CARDIAC Hx Cardiac Disorders: No - PULMONARY Hx Respiratory Disorders: Yes Hx Asthma: Yes - NEUROLOGICAL Hx Neurological Disorder: No - HEENT Hx HEENT Problems: No - RENAL Hx Chronic Kidney Disease: No - ENDOCRINE/METABOLIC Hx Endocrine Disorders: Yes Hx Diabetes Mellitus Type 2: Yes - HEMATOLOGICAL/ONCOLOGICAL Hx Blood Disorders: Yes Hx Blood Transfusions: Yes - INTEGUMENTARY Hx Dermatological Problems: No - MUSCULOSKELETAL/RHEUMATOLOGICAL Hx Musculoskeletal Disorders: No - GASTROINTESTINAL Hx Gastrointestinal Disorders: No - GENITOURINARY/GYNECOLOGICAL Hx Genitourinary Disorders: Yes Hx Prostate Problems: Yes - PSYCHIATRIC Hx Psychophysiologic Disorder: No Hx Substance Use: No - SURGICAL HISTORY Hx Coronary Artery Bypass Graft: Yes - ANESTHESIA Hx Anesthesia: Yes Hx Anesthesia Reactions: No Hx Malignant Hyperthermia: No Meds Allergies/Adverse Reactions: Allergies Allergy/AdvReac Type Severity Reaction Status Date / Time No Known Allergies Allergy Verified 05/18/18 12:06 - Medications Medications: Current Medications Amlodipine Besylate (Norvasc) 5 mg PO DAILY [facility] Last Admin: 05/20/18 09:47 Dose: 5 mg Aspirin (Ecotrin) 81 mg PO DAILY [facility] Last Admin: 05/20/18 09:47 Dose: 81 mg Atorvastatin Calcium (Lipitor) 20 mg PO QPM [facility] Last Admin: 05/19/18 17:46 Dose: 20 mg Gabapentin (Neurontin) 100 mg PO BID [facility]; Protocol Last Admin: 05/20/18 09:46 Dose: 100 mg Heparin Sodium (Porcine) (Heparin) 5,000 units SC Q8 [facility]; Protocol Last Admin: 05/20/18 13:31 Dose: 5,000 units Home Med (Home Med) 2 unit PO DAILY [facility] Last Admin: 05/20/18 09:43 Dose: 2 unit Hydralazine HCl (Apresoline) 10 mg IVP Q8 PRN PRN Reason: Systolic Blood Pressure Last Admin: 05/18/18 05:15 Dose: 10 mg Insulin Human Regular (Humulin R Low) 0 units SC [facility]; Protocol Last Admin: 05/20/18 12:35 Dose: Not Given Lidocaine (Lidoderm) 1 ea TD DAILY [facility] Last Admin: 05/20/18 09:49 Dose: 1 ea Losartan Potassium (Cozaar) 75 mg PO DAILY [facility] Last Admin: 05/20/18 09:44 Dose: 75 mg Magnesium Oxide (Mag-Ox) 200 mg PO DAILY [facility] Last Admin: 05/20/18 09:46 Dose: 200 mg Morphine Sulfate (Morphine) 2 mg IVP Q4H PRN PRN Reason: Pain, severe (8-10) Last Admin: 05/20/18 02:58 Dose: 2 mg Oxycodone/Acetaminophen (Percocet 5/325 Mg Tab) 1 tab PO TID PRN PRN Reason: Pain, moderate (4-7) Stop: 05/21/18 18:01 Last Admin: 05/19/18 20:07 Dose: 1 tab Pantoprazole Sodium (Protonix Ec Tab) 40 mg PO 0600 [facility] Last Admin: 05/20/18 05:30 Dose: 40 mg Polyethylene Glycol (Miralax) 17 gm PO BID [facility] Last Admin: 05/20/18 13:14 Dose: Not Given Prednisone (Prednisone Tab) 5 mg PO DAILY [facility] Last Admin: 05/20/18 09:47 Dose: 5 mg Senna/Docusate Sodium (Senokot S 50 Mg-8.6 Mg) 1 tab PO DAILY [facility] Last Admin: 05/20/18 09:45 Dose: 1 tab Tamsulosin HCl (Flomax) 0.4 mg PO BID [facility] Last Admin: 05/20/18 09:45 Dose: 0.4 mg Physical Exam - Constitutional Appears: Non-toxic, No Acute Distress - Head Exam Head Exam: ATRAUMATIC, NORMAL INSPECTION, NORMOCEPHALIC - Eye Exam Eye Exam: Conjunctival injection, EOMI, Normal appearance Pupil Exam: NORMAL ACCOMODATION, PERRL - ENT Exam ENT Exam: Mucous Membranes Moist, Normal Exam - Neck Exam Neck exam: Positive for: Normal Inspection. Negative for: Lymphadenopathy - Respiratory Exam Respiratory Exam: Clear to Auscultation Bilateral, NORMAL BREATHING PATTERN. absent: Decreased Breath Sounds - Cardiovascular Exam Cardiovascular Exam: +S1, +S2, Systolic Murmur - GI/Abdominal Exam GI & Abdominal Exam: Normal Bowel Sounds, Soft - Rectal Exam Rectal Exam: Deferred - Extremities Exam Additional comments: patient has lower extremity weakness 4/5 states it has improved since admission - Back Exam Back exam: NORMAL INSPECTION - Neurological Exam Neurological exam: Alert, CN II-XII Intact, Oriented x3 Results - Vital Signs Recent Vital Signs: Last Vital Signs Temp 97.7 F 05/20/18 06:00 Pulse 79 05/20/18 10:00 Resp 20 05/20/18 06:00 BP 143/64 05/20/18 09:47 Pulse Ox 99 05/20/18 06:00 - Labs Result Diagrams: 05/20/18 06:30 05/20/18 06:30 Labs: Laboratory Results - last 24 hr 05/19/18 05/19/18 05/20/18 16:02 21:12 06:30 WBC 5.1 D RBC 3.21 L Hgb 9.5 L Hct 28.9 L MCV 90.0 MCH 29.6 MCHC 32.9 RDW 16.6 H Plt Count 171 MPV 9.2 Gran % 76.9 H Lymph % (Auto) 15.2 L [place] % (Auto) 4.9 Eos % (Auto) 2.8 Baso % (Auto) 0.2 Gran # 3.90 Lymph # (Auto) 0.8 L [place] # (Auto) 0.3 Eos # (Auto) 0.1 Baso # (Auto) 0.01 Sodium Potassium Chloride Carbon Dioxide Anion Gap BUN Creatinine Est GFR ( Amer) Est GFR (Non-Af Amer) POC Glucose (mg/dL) 121 H 188 H Random Glucose Calcium 05/20/18 05/20/18 06:30 07:26 WBC RBC Hgb Hct MCV MCH MCHC RDW Plt Count MPV Gran % Lymph % (Auto) [place] % (Auto) Eos % (Auto) Baso % (Auto) Gran # Lymph # (Auto) [place] # (Auto) Eos # (Auto) Baso # (Auto) Sodium 139 Potassium 4.8 Chloride 108 H Carbon Dioxide 26 Anion Gap 9 L BUN 39 H Creatinine 1.2 Est GFR ( Amer) > 60 Est GFR (Non-Af Amer) 57 POC Glucose (mg/dL) 206 H Random Glucose 118 H Calcium 8.8 Assessment & Plan - Assessment and Plan (Free Text) Assessment: 88 year old male patient with multiple comorbid conditions with metastatic prostate cancer currently s/p RT to the lumbar spine and on Zytiga 500mg with prednisone admitted for lower extremity pain which has improved since admission. Anemia is likely multifactorial due to chronic disease and cannot rule out chronic blood loss or bone marrow involvement. Plan: Continue decadron Pain control, nacrotics are helping Bowel regimen to reduce constipation colace/senna Continue Zytiga 500mg po with prednisone 5mg daily If his lower back pain worsens will need repeat MRI of the lower spine to rule out compression fracture Patient will follow up with his primary oncologist at [facility] upon discharge Dr. Vieira Thank you for allowing me to partake in your patients care. Sincerely, Moses Stone (Covering for Dr. Puente)
[2018-05-20 19:57] VITALS: RESP 18; O2SAT 98
[2018-05-21] MEDS: Morphine 2 mg/ml ISec IVP PRN (00:35)
[2018-05-21] MEDS: Pantoprazole 40 mg EC Tab PO SCH (05:30)
[2018-05-21] MEDS: Insulin Reg-LOW-Coverage SC SCH ×2 (07:54→12:15)
[2018-05-21] MEDS: Oxycodone/Acetaminophen 5/325 mg Tab PO PRN (07:55)
[2018-05-21 08:44] LABS: BLOOD UREA NITROGEN 39 mg/dL (7-21); CALCIUM 8.7 mg/dL (8.4-10.5); GFR NON-AFRICAN AMERICAN > 60
[2018-05-21 08:55] LABS: BASO # 0.01 K/mm3 (0.0-2.0); BASO % 0.2 % (0.0-3.0); EOS # 0.2 (0.0-0.7); EOS % 3.7 % (1.5-5.0); GRAN # 4.27 (1.4-6.5); GRAN % 67.8 % (50.0-68.0); HEMOGLOBIN 9.6 g/dL (14.0-18.0); LYMPH # 1.4 (1.2-3.4); LYMPH % 22.7 % (22.0-35.0); MEAN CELL VOLUME 89.7 fl (80.0-105.0); MEAN CORPUSCULAR HEMOGLOBIN 29.9 pg (25.0-35.0); MEAN CORPUSCULAR HGB CONC 33.3 g/dl (31.0-37.0); MEAN PLATELET VOLUME 9.1 fl (7.0-11.0); MONO # 0.4 (0.1-0.6); MONO % 5.6 % (1.0-6.0); RBC 3.21 10^6/uL (3.5-6.1); RED CELL DISTRIBUTION WIDTH 16.6 % (11.5-14.5); WHITE BLOOD COUNT 6.3 10^3/ul (4.5-11.0)
[2018-05-21] MEDS ORDERED: ZYTIGA 250 MG PO SCH (08:59)
[2018-05-21 09:05] VITALS: BP 155/62; PULSE 69; TEMP 98.1
[2018-05-21] MEDS: POLYETHYLENE GLYCOL 3350 17 GM/Dose PACKET PO SCH (10:11)
[2018-05-21] MEDS: Lidocaine 5% Patch TD SCH (10:12)
[2018-05-21] MEDS: Magnesium Oxide 400 mg Tab UD PO SCH (10:14)
[2018-05-21] MEDS: Docusate-Senna 50 mg-8.6 mg Tab PO SCH (10:14)
[2018-05-21] MEDS ORDERED: Oxycodone/Acetaminophen 5/325 mg Tab PO PRN (10:36)
--- NOTE | 2018-05-21 13:06 | CP.PCM.DIS ---
<Antonino Johnson - Last Filed: 05/21/18 12:58> Provider - Provider Date of Admission: 05/19/18 16:20 Attending physician: Flo Saavedra MD Consults: Dr. Mathieu Puente Time Spent in preparation of Discharge (in minutes): 45 Hospital Course - Lab Results Lab Results: Micro Results 05/18/18 03:40 Urine,Clean Catch Urine Culture - Final <10,000 CFU/ML. MULTIPLE SPECIES. PROBABLE CONTAMINATION. Most Recent Lab Values WBC 6.3 10^3/ul (4.5-11.0) D 05/21/18 08:00 RBC 3.21 10^6/uL (3.5-6.1) L 05/21/18 08:00 Hgb 9.6 g/dL (14.0-18.0) L 05/21/18 08:00 Hct 28.8 % (42.0-52.0) L 05/21/18 08:00 MCV 89.7 fl (80.0-105.0) 05/21/18 08:00 MCH 29.9 pg (25.0-35.0) 05/21/18 08:00 MCHC 33.3 g/dl (31.0-37.0) 05/21/18 08:00 RDW 16.6 % (11.5-14.5) H 05/21/18 08:00 Plt Count 168 10^3/uL (120.0-450.0) 05/21/18 08:00 MPV 9.1 fl (7.0-11.0) 05/21/18 08:00 Gran % 67.8 % (50.0-68.0) 05/21/18 08:00 Lymph % (Auto) 22.7 % (22.0-35.0) 05/21/18 08:00 Clare % (Auto) 5.6 % (1.0-6.0) 05/21/18 08:00 Eos % (Auto) 3.7 % (1.5-5.0) 05/21/18 08:00 Baso % (Auto) 0.2 % (0.0-3.0) 05/21/18 08:00 Gran # 4.27 (1.4-6.5) 05/21/18 08:00 Lymph # (Auto) 1.4 (1.2-3.4) 05/21/18 08:00 Clare # (Auto) 0.4 (0.1-0.6) 05/21/18 08:00 Eos # (Auto) 0.2 (0.0-0.7) 05/21/18 08:00 Baso # (Auto) 0.01 K/mm3 (0.0-2.0) 05/21/18 08:00 Sodium 136 mmol/L (132-148) 05/21/18 08:00 Potassium 4.4 mmol/L (3.6-5.0) 05/21/18 08:00 Chloride 104 mmol/L (98-107) 05/21/18 08:00 Carbon Dioxide 26 mmol/L (21-33) 05/21/18 08:00 Anion Gap 11 (10-20) 05/21/18 08:00 BUN 39 mg/dL (7-21) H 05/21/18 08:00 Creatinine 1.1 mg/dl (0.8-1.5) 05/21/18 08:00 Est GFR ( Amer) > 60 05/21/18 08:00 Est GFR (Non-Af Amer) > 60 05/21/18 08:00 POC Glucose (mg/dL) 111 mg/dL (65-110) H 05/21/18 07:17 Random Glucose 124 mg/dL (70-110) H 05/21/18 08:00 Hemoglobin A1c 6.5 % (4.2-6.5) 05/18/18 03:27 Calcium 8.7 mg/dL (8.4-10.5) 05/21/18 08:00 Phosphorus 3.8 mg/dL (2.5-4.5) 05/18/18 03:27 Magnesium 1.9 mg/dL (1.7-2.2) 05/18/18 03:27 Total Bilirubin 0.3 mg/dL (0.2-1.3) 05/18/18 03:27 AST 23 U/L (17-59) 05/18/18 03:27 ALT 23 U/L (7-56) 05/18/18 03:27 Alkaline Phosphatase 113 U/L (38-126) 05/18/18 03:27 Total Protein 6.5 g/dL (5.8-8.3) 05/18/18 03:27 Albumin 3.6 g/dL (3.0-4.8) 05/18/18 03:27 Globulin 2.9 gm/dL 05/18/18 03:27 Albumin/Globulin Ratio 1.2 (1.1-1.8) 05/18/18 03:27 Vitamin B12 700 pg/mL (239-931) 05/18/18 06:25 25-OH Vitamin D Total 57.1 NG/ML (30.0-100.0) 05/18/18 06:25 Urine Color Yellow (YELLOW) 05/18/18 03:40 Urine Appearance Clear (CLEAR) 05/18/18 03:40 Urine pH 6.0 (4.7-8.0) 05/18/18 03:40 Ur Specific [place] 1.025 (1.005-1.035) 05/18/18 03:40 Urine Protein 30 mg/dL (<30 mg/dL) H 05/18/18 03:40 Urine Glucose (UA) Negative mg/dL (NEGATIVE) 05/18/18 03:40 Urine Ketones Negative mg/dL (NEGATIVE) 05/18/18 03:40 Urine Blood Negative (NEGATIVE) 05/18/18 03:40 Urine Nitrate Negative (NEGATIVE) 05/18/18 03:40 Urine Bilirubin Negative (NEGATIVE) 05/18/18 03:40 Urine Urobilinogen 0.2 E.U./dL (<1 E.U./dL) 05/18/18 03:40 Ur Leukocyte Esterase Trace Chacorta/uL (NEGATIVE) H 05/18/18 03:40 Urine RBC 0 - 2 /hpf (0-2) 05/18/18 03:40 Urine WBC 1 - 3 /hpf (0-6) 05/18/18 03:40 Ur Epithelial Cells 0 - 2 /hpf (0-5) 05/18/18 03:40 Urine Bacteria Occ (NEG) 05/18/18 03:40 Urine Opiates Screen Negative (NEGATIVE) 05/18/18 03:40 Urine Methadone Screen Negative (NEGATIVE) 05/18/18 03:40 Ur Barbiturates Screen Negative (NEGATIVE) 05/18/18 03:40 Ur Phencyclidine Scrn Negative (NEGATIVE) 05/18/18 03:40 Ur Amphetamines Screen Negative (NEGATIVE) 05/18/18 03:40 U Benzodiazepines Scrn Negative (NEGATIVE) 05/18/18 03:40 U Oth Cocaine Metabols Negative (NEGATIVE) 05/18/18 03:40 U Cannabinoids Screen Negative (NEGATIVE) 05/18/18 03:40 - Hospital Course Hospital Course: Upon Admission Patient is a 88 yo M with H CAD s/p CABG (2013), 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 At baseline, pain mostly has pain in R hip and buttock radiating to leg, but the pain has been worsened in the past 2 weeks with new pain on L thigh. The pain was like a "jolt", constant, baseline at 5/10, but increased to 10/10. He was not able to sleep because of the pain. Dr. Murdock prescribed him medrol dosepak which helped at first but the pain came back more as the doses tapered. Patient states he has used the medrol dose jairo for 3 days, as well as tramadol, with no relief. (+) Associated weakness to his legs and having to use a cane to walk. (+) Pt falls 3 days. He has been falling often. Hospital Course Patient with H CAD s/p CABG (2013), newly diagnosed prostate cancer in September 2017 with metastasis to the lumbar spine (s/p laser vaporization of prostate and currently on radiation on lumbar spine, most recent one being yesterday, session #10), sciatica with bulging discs, CKD 3 and DM, C/O intractable low back/hip/LE pain, failed outpatient medrol dose jairo and tramadol. He was found to have new pain on L thigh and frequent falls. Pt refusing oral pain medications. Pain controlled with morphine. Pt having difficulty ambulating longer distances with LBP and limited LE power while working with PE. PT recommends TCU. TCU eval accepted patient for further physical therapy prior to next chemo treatment. Discharge Plan Patient is stable for discharge to TCU as per Dr. Saavedra. Patient will continue pain medication management as reconciled. Patient will continue with PT in TCU. Patient will be discharged with same meds as in TCU and needs further followup with oncologist for treatment of his cancer. Disclaimer: Written above is a shortened synopsis of patient's current hospital admission. For full report refer to EMR Discharge Exam - Head Exam Head Exam: ATRAUMATIC, NORMAL INSPECTION, NORMOCEPHALIC - Eye Exam Eye Exam: EOMI, Normal appearance. absent: Nystagmus, Scleral icterus - Respiratory Exam Respiratory Exam: NORMAL BREATHING PATTERN. absent: Rales, Rhonchi, Wheezes - Cardiovascular Exam Cardiovascular Exam: REGULAR RHYTHM, +S1, +S2. absent: Tachycardia, +S4 - GI/Abdominal Exam GI & Abdominal Exam: Normal Bowel Sounds, Soft. absent: Distended, Firm, Guarding, Tenderness - Extremities Exam Extremities exam: normal inspection - Back Exam Back exam: muscle spasm, vertebral tenderness - Neurological Exam Neurological exam: Alert, Oriented x3 - Psychiatric Exam Psychiatric exam: Normal Affect, Normal Mood - Skin Skin Exam: Intact, Normal Color Discharge Plan - Follow Up Plan Condition: STABLE Disposition: REHAB FACILITY/REHAB UNIT Instructions: Prostate Cancer, Low Back Pain in Adults Additional Instructions: 1. Please follow up with your primary care physician within 1 week 2. Please follow up with oncologist. Patient has scheduled meeting upcoming. 3. Please resume all medications that are being given in TCU except heparin. 4. Patient is stable for transfer to TCU for increased physical therapy. 5. Medications have been reconciled as ambulatory orders. Referrals: Terrence Murdock MD [Staff Provider] - Jose Moreland MD [Family Provider] - <Flo Saavedra - Last Filed: 05/21/18 14:31> Provider - Provider Date of Admission: 05/19/18 16:20 Attending physician: Flo Saavedra MD Hospital Course - Lab Results Lab Results: Micro Results 05/18/18 03:40 Urine,Clean Catch Urine Culture - Final <10,000 CFU/ML. MULTIPLE SPECIES. PROBABLE CONTAMINATION. Most Recent Lab Values WBC 6.3 10^3/ul (4.5-11.0) D 05/21/18 08:00 RBC 3.21 10^6/uL (3.5-6.1) L 05/21/18 08:00 Hgb 9.6 g/dL (14.0-18.0) L 05/21/18 08:00 Hct 28.8 % (42.0-52.0) L 05/21/18 08:00 MCV 89.7 fl (80.0-105.0) 05/21/18 08:00 MCH 29.9 pg (25.0-35.0) 05/21/18 08:00 MCHC 33.3 g/dl (31.0-37.0) 05/21/18 08:00 RDW 16.6 % (11.5-14.5) H 05/21/18 08:00 Plt Count 168 10^3/uL (120.0-450.0) 05/21/18 08:00 MPV 9.1 fl (7.0-11.0) 05/21/18 08:00 Gran % 67.8 % (50.0-68.0) 05/21/18 08:00 Lymph % (Auto) 22.7 % (22.0-35.0) 05/21/18 08:00 Clare % (Auto) 5.6 % (1.0-6.0) 05/21/18 08:00 Eos % (Auto) 3.7 % (1.5-5.0) 05/21/18 08:00 Baso % (Auto) 0.2 % (0.0-3.0) 05/21/18 08:00 Gran # 4.27 (1.4-6.5) 05/21/18 08:00 Lymph # (Auto) 1.4 (1.2-3.4) 05/21/18 08:00 Clare # (Auto) 0.4 (0.1-0.6) 05/21/18 08:00 Eos # (Auto) 0.2 (0.0-0.7) 05/21/18 08:00 Baso # (Auto) 0.01 K/mm3 (0.0-2.0) 05/21/18 08:00 Sodium 136 mmol/L (132-148) 05/21/18 08:00 Potassium 4.4 mmol/L (3.6-5.0) 05/21/18 08:00 Chloride 104 mmol/L (98-107) 05/21/18 08:00 Carbon Dioxide 26 mmol/L (21-33) 05/21/18 08:00 Anion Gap 11 (10-20) 05/21/18 08:00 BUN 39 mg/dL (7-21) H 05/21/18 08:00 Creatinine 1.1 mg/dl (0.8-1.5) 05/21/18 08:00 Est GFR ( Amer) > 60 05/21/18 08:00 Est GFR (Non-Af Amer) > 60 05/21/18 08:00 POC Glucose (mg/dL) 111 mg/dL (65-110) H 05/21/18 07:17 Random Glucose 124 mg/dL (70-110) H 05/21/18 08:00 Hemoglobin A1c 6.5 % (4.2-6.5) 05/18/18 03:27 Calcium 8.7 mg/dL (8.4-10.5) 05/21/18 08:00 Phosphorus 3.8 mg/dL (2.5-4.5) 05/18/18 03:27 Magnesium 1.9 mg/dL (1.7-2.2) 05/18/18 03:27 Total Bilirubin 0.3 mg/dL (0.2-1.3) 05/18/18 03:27 AST 23 U/L (17-59) 05/18/18 03:27 ALT 23 U/L (7-56) 05/18/18 03:27 Alkaline Phosphatase 113 U/L (38-126) 05/18/18 03:27 Total Protein 6.5 g/dL (5.8-8.3) 05/18/18 03:27 Albumin 3.6 g/dL (3.0-4.8) 05/18/18 03:27 Globulin 2.9 gm/dL 05/18/18 03:27 Albumin/Globulin Ratio 1.2 (1.1-1.8) 05/18/18 03:27 Vitamin B12 700 pg/mL (239-931) 05/18/18 06:25 25-OH Vitamin D Total 57.1 NG/ML (30.0-100.0) 05/18/18 06:25 Urine Color Yellow (YELLOW) 05/18/18 03:40 Urine Appearance Clear (CLEAR) 05/18/18 03:40 Urine pH 6.0 (4.7-8.0) 05/18/18 03:40 Ur Specific [place] 1.025 (1.005-1.035) 05/18/18 03:40 Urine Protein 30 mg/dL (<30 mg/dL) H 05/18/18 03:40 Urine Glucose (UA) Negative mg/dL (NEGATIVE) 05/18/18 03:40 Urine Ketones Negative mg/dL (NEGATIVE) 05/18/18 03:40 Urine Blood Negative (NEGATIVE) 05/18/18 03:40 Urine Nitrate Negative (NEGATIVE) 05/18/18 03:40 Urine Bilirubin Negative (NEGATIVE) 05/18/18 03:40 Urine Urobilinogen 0.2 E.U./dL (<1 E.U./dL) 05/18/18 03:40 Ur Leukocyte Esterase Trace Chacorta/uL (NEGATIVE) H 05/18/18 03:40 Urine RBC 0 - 2 /hpf (0-2) 05/18/18 03:40 Urine WBC 1 - 3 /hpf (0-6) 05/18/18 03:40 Ur Epithelial Cells 0 - 2 /hpf (0-5) 05/18/18 03:40 Urine Bacteria Occ (NEG) 05/18/18 03:40 Urine Opiates Screen Negative (NEGATIVE) 05/18/18 03:40 Urine Methadone Screen Negative (NEGATIVE) 05/18/18 03:40 Ur Barbiturates Screen Negative (NEGATIVE) 05/18/18 03:40 Ur Phencyclidine Scrn Negative (NEGATIVE) 05/18/18 03:40 Ur Amphetamines Screen Negative (NEGATIVE) 05/18/18 03:40 U Benzodiazepines Scrn Negative (NEGATIVE) 05/18/18 03:40 U Oth Cocaine Metabols Negative (NEGATIVE) 05/18/18 03:40 U Cannabinoids Screen Negative (NEGATIVE) 05/18/18 03:40 Attending/Attestation - Attestation I have personally seen and examined this patient.: Yes I have fully participated in the care of the patient.: Yes I have reviewed all pertinent clinical information, including history, physical exam and plan: Yes Notes (Text): 05/21/18 14:28 Medical record note made by the resident after discussion with my direction and input after the patient was personally seen and examined by me. I have reviewed the chart and agree that the record accurately reflects by personal performance of the history, physical exam, data review, and medical decision-making, in the course for the patient. I have also personally directed the plan of care. 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 Vieira. Patient was admitted on Wednesday for intractable lower back pain 05/11 which prompted him to seek medical attention at the hospital. Pain was radiating down his right lower leg, exacerbated with movement, no stool/urine incontinence, numbness or tingling of the lower extremities. Pain is better now.Physical therapy has recommended TCU for rehabilitation.Patient will be discharged to TCU. Management plan was discussed in detail with patient. Education was provided.
== END 2018-05-21 15:12 | DRG 544 ==
LOC: ED 23:31 → ERH 05-18 01:58 → 3RSO 05-18 09:00 → OBSVTOIN 05-19 16:20
PROVIDERS: ADMIT Internal Medicine; ATTEND Internal Medicine
DX: C79.51 Secondary malignant neoplasm of bone (principal); C61 Malignant neoplasm of prostate; D63.8 Anemia in other chronic diseases classified elsewhere; I12.9 Hypertensive chronic kidney disease with stage 1 through stage 4 chronic kidney disease, or unspecified chronic kidney disease; E11.22 Type 2 diabetes mellitus with diabetic chronic kidney disease; N18.3 Chronic kidney disease, stage 3 (moderate); I25.10 Atherosclerotic heart disease of native coronary artery without angina pectoris; M54.40 Lumbago with sciatica, unspecified side; K59.00 Constipation, unspecified; R29.6 Repeated falls; Z95.1 Presence of aortocoronary bypass graft; Z95.2 Presence of prosthetic heart valve; Z87.891 Personal history of nicotine dependence

== ENCOUNTER 2018-05-21 15:15 | Inpatient (IN) | payer MEDICARE ==
[2018-05-21] MEDS ORDERED: Influenza Vaccine 60 mcg/0.5 mL SYR (4YR UP) IM ONE (16:42)
[2018-05-21] MEDS ORDERED: Pneumococcal 23-Valent Vaccine IM ONE (16:42)
[2018-05-21] MEDS: Insulin Reg-LOW-Coverage SC SCH ×2 (17:14→21:12)
[2018-05-21] MEDS: POLYETHYLENE GLYCOL 3350 17 GM/Dose PACKET PO SCH (17:14)
[2018-05-21] MEDS: Morphine 2 mg/ml ISec IVP PRN (21:17)
[2018-05-22] MEDS: Morphine 2 mg/ml ISec IVP PRN ×2 (00:58→09:17)
[2018-05-22] MEDS: Pantoprazole 40 mg EC Tab PO SCH (05:18)
[2018-05-22] MEDS: Insulin Reg-LOW-Coverage SC SCH ×4 (06:30→22:01)
[2018-05-22] MEDS: ZYTIGA 250 MG PO SCH (06:57)
[2018-05-22] MEDS: Oxycodone/Acetaminophen 5/325 mg Tab PO PRN ×2 (09:18)
[2018-05-22] MEDS: Lidocaine 5% Patch TD SCH (09:25)
[2018-05-22] MEDS: Docusate-Senna 50 mg-8.6 mg Tab PO SCH (09:26)
[2018-05-22] MEDS: Magnesium Oxide 400 mg Tab UD PO SCH (09:27)
[2018-05-22] MEDS: POLYETHYLENE GLYCOL 3350 17 GM/Dose PACKET PO SCH ×2 (09:28→17:08)
--- NOTE | 2018-05-22 10:52 | CP.PCM.HP ---
<Antonino Johnson - Last Filed: 05/22/18 10:47> History of Present Illness - History of Present Illness History of Present Illness: PGY-1 H&P for Dr. 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 At baseline, pain mostly has pain in R hip and buttock radiating to leg, but the pain has been worsened in the past 2 weeks with new pain on L thigh. The pain was like a "jolt", constant, baseline at 5/10, but increased to 10/10. He was not able to sleep because of the pain. Dr. Murdock prescribed him medrol dosepak which helped at first but the pain came back more as the doses tapered. Patient states he has used the medrol dose jairo for 3 days, as well as tramadol, with no relief. (+) Associated weakness to his legs and having to use a cane to walk. (+) Pt falls 3 days. He has been falling often. Patient's pain medication has been attempted to optimized through pain medications and physical therapy. Patient has been trasnferred to TCU and is working with physical therapy. Patient admits to leg pain after PT session. Patient denies fevers, chills, chest pain, sob, n/v, constipation or diarrhea, dizziness, dysuria. PMHx CAD s/p CABG __2013__, Aortic Stenosis s/p aortic valve replacement, Mitral valve ring 2014 ([facility]) - Stress test 2017: Normal LVEF. Mild apical/inferior defects suspicous of ischemia HTN Prostate cancer newly diagnosed prostate cancer in September 2017 with metastasis to the lumbar spine - s/p cystoscopy with laser vaporization of prostate for bladder outlet obstruction (09/2017) - Currently on radiation, session 10 yesterday, - Recent whole scan done, April 2018, [facility], [address] [place] [address] on [facility] Sciatica with bulging discs - Mild-mod narrowing thecal sc L3-5 DM2 CKD stage __3_, Chronic anemia Hb 9 at baseline R middle lobe lung nodule, 3mm, CT 10/2017 Constipation, diverticulosis, Hx colon polyps Hx frequent falls. PSH CABG Aortic valve replacement FH Dad - prostate CA; mom - breast CA; sister - DM SH Former smoker quick 63 years ago. 3pack a day Denies illicit drug use ETOH once a month Ambulate with a cane He has 2 sons. elder son lives upstairs. Young son lives downstairs All NKDA Med Zytiga, 4 tablets daily + see SEP PMD: Dr Moreland Radiation Oncologist: Dr Garrison at [facility] Urologist: Dr Jeffries Neurologist: Dr Murdock Cardio: Trixie Nephro: Yumiko GI: Dr Menchaca Present on Admission - Present on Admission Any Indicators Present on Admission: No Review of Systems - Review of Systems Review of Systems: 12 point ROS obtained and noted as in HPI Past Patient History - Infectious Disease Hx of Infectious Diseases: None - Tetanus Immunizations Tetanus Immunization: Unknown - Past Medical History & Family History Past Medical History?: Yes - Past Social History Smoking Status: Never Smoked - CARDIAC Hx Cardiac Disorders: Yes (CAD s/p CABG (2013)) - PULMONARY Hx Respiratory Disorders: Yes Hx Asthma: Yes - NEUROLOGICAL Hx Neurological Disorder: No - HEENT Hx HEENT Problems: No - RENAL Hx Chronic Kidney Disease: No - ENDOCRINE/METABOLIC Hx Endocrine Disorders: Yes Hx Diabetes Mellitus Type 2: Yes - HEMATOLOGICAL/ONCOLOGICAL Hx Blood Disorders: Yes Hx Blood Transfusions: Yes - INTEGUMENTARY Hx Dermatological Problems: No - MUSCULOSKELETAL/RHEUMATOLOGICAL Hx Falls: Yes (fell to knees at home recently) - GASTROINTESTINAL Hx Gastrointestinal Disorders: No - GENITOURINARY/GYNECOLOGICAL Hx Reproductive Disorders: Yes - PSYCHIATRIC Hx Psychophysiologic Disorder: No Hx Substance Use: No - SURGICAL HISTORY Hx Coronary Artery Bypass Graft: Yes - ANESTHESIA Hx Anesthesia: Yes Hx Anesthesia Reactions: No Hx Malignant Hyperthermia: No Meds Allergies/Adverse Reactions: Allergies Allergy/AdvReac Type Severity Reaction Status Date / Time No Known Allergies Allergy Verified 05/18/18 12:06 Physical Exam - Constitutional Appears: Non-toxic Additional comments: in pain 2/2 physical therapy session - Head Exam Head Exam: ATRAUMATIC, NORMAL INSPECTION, NORMOCEPHALIC - Eye Exam Eye Exam: EOMI, Normal appearance. absent: Nystagmus, Scleral icterus - ENT Exam ENT Exam: Mucous Membranes Moist, Normal Exam - Respiratory Exam Respiratory Exam: Clear to Auscultation Bilateral, NORMAL BREATHING PATTERN. absent: Rales, Rhonchi, Wheezes, Respiratory Distress - Cardiovascular Exam Cardiovascular Exam: REGULAR RHYTHM, +S1, +S2. absent: Tachycardia - GI/Abdominal Exam GI & Abdominal Exam: Normal Bowel Sounds, Soft. absent: Diminished Bowel Sounds, Distended, Firm, Guarding, Tenderness - Extremities Exam Extremities exam: Positive for: normal inspection. 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 He was found to have new pain on L thigh and frequent falls. Continue with pain management and physical therapy in TCU for rehab/ Plan: Intractable lower back, b/l hip, and b/l LE pain Sciatica and Bone mets from prostate Dr Murdock, neurology for radiculopathy management Dr Puente, heme/onc for cancer bone metastasis management Physical therapy Percocet 1q4 PRN for moderate pain, Morphine IV 2q4 PRN for severe pain; Lidoderm; Prednisone 5mg po Gabapentin 200mg po tid HTN Norvasc 5mg po daily Cozaar 75mg po daily Hydralazine 10mg IVP q8h prn DM A1C- 6.5 ISS- low dose Chronic anemia Asymptomatic; Hemodynamically stable Hx Prostate CA s/p cystoscopy with laser vaporization of prostate, currently on radiation; continue outpatient Tamsulosin 0.4mg po bid Hx CAD s/p CABG ASA 81mg daily Lipitor 20mg po HS R middle lobe lung nodule CT chest outpatient Constipation, diverticulosis, Hx colon polyps Miralax Senokot Hx frequent falls Physical therapy for conditioning Patient has bone mets PPx Heparin 5000 SC Protonix 40 po Medical management discussed with Dr. Saavedra PGY-1 Antonino Alex <QuentinMonicofarhan - Last Filed: 05/22/18 12:08> Results - Vital Signs Recent Vital Signs: Last Vital Signs Temp 97.9 F 05/21/18 16:26 Pulse 80 05/22/18 09:30 Resp 14 05/21/18 16:26 BP 123/48 L 05/22/18 09:30 Pulse Ox Attending/Attestation - Attestation I have personally seen and examined this patient.: Yes I have fully participated in the care of the patient.: Yes I have reviewed all pertinent clinical information: Yes Notes (Text): 05/22/18 12:04 Medical record note made by the resident after discussion with my direction and input after the patient was personally seen and examined by me. I have reviewed the chart and agree that the record accurately reflects by personal performance of the history, physical exam, data review, and medical decision-making, in the course for the patient. I have also personally directed the plan of care. 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 Vieira. Patient was admitted on Wednesday for intractable lower back pain 05/11 which prompted him to seek medical attention at the hospital. Pain was radiating down his right lower leg, exacerbated with movement, no stool/urine incontinence, numbness or tingling of the lower extremities..Physical therapy recommended TCU for rehabilitation.Patient is admitted to TCU for rehabilitation. Patient pain got worse with Physical therapy today, will increase Neurontin to 200 mg PO TID with holding Parameter.Patient has been advised to take pain medication 30 minuets prior to physical therapy. If pain will get worse, will need MRI.Patient has refused MRI previously while he was on medical floor. Management plan was discussed in detail with patient. Education was provided.
[2018-05-23] MEDS: Pantoprazole 40 mg EC Tab PO SCH (05:49)
[2018-05-23] MEDS: ZYTIGA 250 MG PO SCH (06:33)
[2018-05-23] MEDS: Insulin Reg-LOW-Coverage SC SCH ×4 (06:37→21:39)
[2018-05-23 07:10] LABS: BASO # 0.01 K/mm3 (0.0-2.0); BASO % 0.2 % (0.0-3.0); EOS # 0.2 (0.0-0.7); EOS % 3.9 % (1.5-5.0); GRAN # 2.94 (1.4-6.5); GRAN % 64.4 % (50.0-68.0); HEMOGLOBIN 8.5 g/dL (14.0-18.0); MEAN CELL VOLUME 90.8 fl (80.0-105.0); MEAN CORPUSCULAR HEMOGLOBIN 30.1 pg (25.0-35.0); MEAN CORPUSCULAR HGB CONC 33.2 g/dl (31.0-37.0); MEAN PLATELET VOLUME 9.2 fl (7.0-11.0); MONO # 0.5 (0.1-0.6); MONO % 10.5 % (1.0-6.0); RBC 2.82 10^6/uL (3.5-6.1); RED CELL DISTRIBUTION WIDTH 16.6 % (11.5-14.5); WHITE BLOOD COUNT 4.6 10^3/ul (4.5-11.0)
[2018-05-23 07:14] LABS: ALB/GLOB RATIO 1.2 (1.1-1.8); ALBUMIN 3.4 g/dL (3.0-4.8); CALCIUM 8.6 mg/dL (8.4-10.5)
[2018-05-23] MEDS: Oxycodone/Acetaminophen 5/325 mg Tab PO PRN ×2 (08:59→21:02)
[2018-05-23] MEDS: Lidocaine 5% Patch TD SCH (09:56)
[2018-05-23] MEDS: Magnesium Oxide 400 mg Tab UD PO SCH (09:56)
[2018-05-23] MEDS: POLYETHYLENE GLYCOL 3350 17 GM/Dose PACKET PO SCH ×2 (09:57→17:02)
[2018-05-23] MEDS: Docusate-Senna 50 mg-8.6 mg Tab PO SCH (09:57)
--- NOTE | 2018-05-23 14:43 | CON ---
DATE: 05/23/2018 NEUROLOGY CONSULTATION CHIEF COMPLAINT: Low back pain. HISTORY OF PRESENT ILLNESS: This is an 88-year-old man who was admitted to the medical site on 05/21/2018 for acute back pain radiating down his hip and buttock, down to his leg, which is worsened over the past 2 weeks; history of CAD, status post CABG in 2013; history of newly-diagnosed prostate cancer in 09/2017, metastasis to the lumbosacral spine, status post laser vaporization and currently radiation to the lumbosacral spine; history of sciatica with bulging disk; type 2 diabetes mellitus; chronic kidney disease; frequent falls who had worsening low back pain on the medical site, was treated with IV steroids as well as Lidoderm patch, opiates, initiated gabapentin, now he is on TCU for rehabilitation and is doing much better than on his initial admission on the medical site. PAST MEDICAL HISTORY: As above. SOCIAL HISTORY: No illicit drug use, smoking, or EtOH abuse. Reports he was smoking 2-3 years ago. FAMILY HISTORY: Noncontributory. ALLERGIES: NO KNOWN DRUG ALLERGIES. MEDICATIONS: Reviewed by nurses' reconciliation sheet. REVIEW OF SYSTEMS: Fourteen-point review of systems is negative except as per the HPI. LABORATORY DATA: Sodium is 136, potassium 4.5, chloride 102, carbon dioxide of 28, BUN of 53, creatinine 1.5, random glucose of 152. PHYSICAL EXAMINATION: VITAL SIGNS: Temperature 97.6, pulse rate of 87, blood pressure 153/55, respiratory rate of 16, oxygen saturation 100% by room air. GENERAL: The patient is sitting up in bed, in no acute distress. HEENT: Atraumatic, normocephalic. PERRLA. Extraocular muscles intact. NECK: Supple. No JVD, no adenopathy noted. LUNGS: Clear to auscultation. No adventitious sounds. HEART: S1, S2. Normal rate and rhythm. No murmurs, rubs, or gallops. ABDOMEN: Soft, nontender, and nondistended. Bowel sounds are present. EXTREMITIES: No clubbing. No cyanosis. Peripheral pulses 2+ felt bilaterally. NEUROLOGIC: The patient is alert and oriented to person, place, month, and year. Speech is fluent without any errors. Cranial nerves II through XII intact. Motor: Moves all extremities equally. No pronator drift seen. Sensory: Decreased light touch and pinprick up to the calves bilaterally. Decreased vibration of the toes. DTRs are 2+ throughout and 1 at both knees and ankles. Coordination: [id number] intact. No dysmetria noted. ASSESSMENT AND PLAN: This is an 88-year-old man with history of coronary artery disease, status post coronary artery bypass grafting in 2013; newly-diagnosed prostate cancer in 09/2017 with metastasis to the lumbosacral spine, status post laser vaporization of prostate, currently on radiation to lumbar spine; history of type of diabetes mellitus; chronic kidney disease; history of longstanding sciatica, came in initially for intractable low back pain radiating down to the leg and buttock with frequent falls, which is likely all secondary to acute on chronic lumbosacral neuritis with myofascial pain from underlying metastasis to the bone into the lumbar spine from prostate cancer. At this time, we would recommend: Continue his Percocet 1 tablet every 4 hours for moderate pain, morphine for severe pain, Lidoderm patch, prednisone 5 mg p.o. daily, gabapentin 300 mg p.o. t.i.d., and physical therapy. Thank you for this consult. Terrence Murdock MD
[2018-05-24] MEDS: Pantoprazole 40 mg EC Tab PO SCH (05:56)
[2018-05-24] MEDS: ZYTIGA 250 MG PO SCH (06:40)
[2018-05-24] MEDS: Insulin Reg-LOW-Coverage SC SCH ×4 (06:40→22:00)
[2018-05-24] MEDS: Oxycodone/Acetaminophen 5/325 mg Tab PO PRN ×2 (08:39→15:46)
[2018-05-24] MEDS: Lidocaine 5% Patch TD SCH (09:22)
[2018-05-24] MEDS: Magnesium Oxide 400 mg Tab UD PO SCH (09:24)
[2018-05-24] MEDS: Docusate-Senna 50 mg-8.6 mg Tab PO SCH (09:25)
[2018-05-24] MEDS: POLYETHYLENE GLYCOL 3350 17 GM/Dose PACKET PO SCH ×2 (09:25→17:20)
--- NOTE | 2018-05-24 12:37 | CP.PCM.PN ---
<Neptali Alan - Last Filed: 05/24/18 12:49> Subjective - Date & Time of Evaluation Date of Evaluation: 05/24/18 Time of Evaluation: 06:00 - Subjective Subjective: Pt seen and examined this morning. Pt denies chest pain, SOB Objective - Vital Signs/Intake and Output Vital Signs (last 24 hours): Temp Pulse Resp BP Pulse Ox 97.9 F 82 16 92/54 L 96 05/24/18 10:00 05/24/18 10:00 05/24/18 10:00 05/24/18 10:00 05/24/18 10:00 - Medications Medications: Current Medications Amlodipine Besylate (Norvasc) 5 mg PO DAILY [facility]; Protocol Last Admin: 05/24/18 09:25 Dose: 5 mg Aspirin (Ecotrin) 81 mg PO 0800 [facility]; Protocol Last Admin: 05/24/18 07:54 Dose: 81 mg Atorvastatin Calcium (Lipitor) 20 mg PO HS [facility]; Protocol Last Admin: 05/23/18 21:01 Dose: 20 mg Gabapentin (Neurontin) 200 mg PO Q8 [facility]; Protocol Last Admin: 05/24/18 05:56 Dose: Not Given Heparin Sodium (Porcine) (Heparin) 5,000 units SC Q8 [facility]; Protocol Last Admin: 05/24/18 05:56 Dose: 5,000 units Home Med (Home Med) 2 unit PO 0700 [facility] Last Admin: 05/24/18 06:40 Dose: 2 unit Hydralazine HCl (Apresoline) 10 mg IVP Q8 PRN; Protocol PRN Reason: Systolic Blood Pressure Insulin Human Regular (Humulin R Low) 0 units SC ACHS [facility]; Protocol Last Admin: 05/24/18 11:49 Dose: 2 u Lidocaine (Lidoderm) 1 ea TD DAILY [facility] Last Admin: 05/24/18 09:22 Dose: 1 ea Losartan Potassium (Cozaar) 50 mg PO DAILY [facility]; Protocol Magnesium Oxide (Mag-Ox) 200 mg PO DAILY [facility]; Protocol Last Admin: 05/24/18 09:24 Dose: 200 mg Morphine Sulfate (Morphine) 2 mg IVP Q4H PRN; Protocol PRN Reason: Pain, severe (8-10) Last Admin: 05/22/18 09:17 Dose: 2 mg Oxycodone/Acetaminophen (Percocet 5/325 Mg Tab) 1 tab PO Q6H PRN; Protocol PRN Reason: Pain, moderate (4-7) Stop: 05/24/18 15:19 Last Admin: 05/24/18 08:39 Dose: 1 tab Pantoprazole Sodium (Protonix Ec Tab) 40 mg PO 0600 [facility]; Protocol Last Admin: 05/24/18 05:56 Dose: 40 mg Polyethylene Glycol (Miralax) 17 gm PO BID [facility]; Protocol Last Admin: 05/24/18 09:25 Dose: 17 gm Prednisone (Prednisone Tab) 5 mg PO 0700 [facility] Last Admin: 05/24/18 06:40 Dose: 5 mg Senna/Docusate Sodium (Senokot S 50 Mg-8.6 Mg) 1 tab PO DAILY [facility]; Protocol Last Admin: 05/24/18 09:25 Dose: 1 tab Tamsulosin HCl (Flomax) 0.4 mg PO BID [facility]; Protocol Last Admin: 05/24/18 09:22 Dose: 0.4 mg - Labs Labs: 05/23/18 06:30 05/23/18 06:30 - Head Exam Head Exam: ATRAUMATIC, NORMAL INSPECTION, NORMOCEPHALIC - Eye Exam Eye Exam: EOMI - ENT Exam ENT Exam: Mucous Membranes Moist - Neck Exam Neck Exam: Full ROM - Respiratory Exam Respiratory Exam: Clear to Ausculation Bilateral, NORMAL BREATHING PATTERN. absent: Accessory Muscle Use, Wheezes, Respiratory Distress, Stridor - Cardiovascular Exam Cardiovascular Exam: RRR, +S1, +S2. absent: Diastolic murmur, Murmur - GI/Abdominal Exam GI & Abdominal Exam: Soft, Normal Bowel Sounds. absent: Tenderness - Extremities Exam Extremities Exam: Full ROM - Back Exam Back Exam: absent: tenderness - Neurological Exam Neurological Exam: Alert, Awake, Oriented x3 - Psychiatric Exam Psychiatric exam: Normal Affect, Normal Mood - Skin Skin Exam: Dry, Intact, Normal Color, Warm Assessment and Plan - Assessment and Plan (Free Text) Assessment: Mr Butts, 88 M, with PMH CAD s/p CABG (2013), newly diagnosed prostate cancer in September 2017 with metastasis to the lumbar spine (s/p laser vaporization of prostate and currently on radiation on lumbar spine, most recent one being yesterday, session #10), sciatica with bulging discs, CKD 3 and DM, C/O intractable low back/hip/LE pain, failed outpatient medrol dose jairo and tramadol. He was found to have new pain on L thigh and frequent falls. Continue with pain management and physical therapy in TCU for rehab Plan: Intractable lower back, b/l hip, and b/l LE pain - Sciatica and Bone mets from prostate - Dr Murdock, neurology for radiculopathy management - Dr Puente, heme/onc for cancer bone metastasis management - continue physical therapy - Percocet 1q4 PRN for moderate pain - Morphine IV 2q4 PRN for severe pain, begin to taper - Lidoderm - Prednisone 5mg po - Gabapentin 200mg po tid HTN - Norvasc 5mg po daily - Cozaar 50mg po daily, decreased dose - Hydralazine 10mg IVP q8h prn - continue to monitor blood pressure DM - A1C 6.5 - ISS low dose Chronic anemia - Asymptomatic - Hemodynamically stable Hx Prostate CA s/p cystoscopy with laser vaporization of prostate - currently on radiation; continue outpatient - Tamsulosin 0.4mg po bid Hx CAD s/p CABG - ASA 81mg daily - Lipitor 20mg po HS R middle lobe lung nodule - CT chest outpatient Constipation, diverticulosis, Hx colon polyps - Miralax - Senokot Hx frequent falls - Physical therapy for conditioning - Patient has bone mets PPx - Heparin 5000 SC - Protonix 40 po Pt seen, examined, assessment and plan discussed with Hemant Alan PGY1, Internal Medicine Resident <Tanvir Marcos - Last Filed: 05/24/18 13:53> Objective - Vital Signs/Intake and Output Vital Signs (last 24 hours): Temp Pulse Resp BP Pulse Ox 97.9 F 82 16 92/54 L 96 05/24/18 10:00 05/24/18 10:00 05/24/18 10:00 05/24/18 10:00 05/24/18 10:00 - Medications Medications: Current Medications Amlodipine Besylate (Norvasc) 5 mg PO DAILY [facility]; Protocol Last Admin: 05/24/18 09:25 Dose: 5 mg Aspirin (Ecotrin) 81 mg PO 0800 [facility]; Protocol Last Admin: 05/24/18 07:54 Dose: 81 mg Atorvastatin Calcium (Lipitor) 20 mg PO HS [facility]; Protocol Last Admin: 05/23/18 21:01 Dose: 20 mg Gabapentin (Neurontin) 300 mg PO Q8 [facility]; Protocol Last Admin: 05/24/18 13:26 Dose: 300 mg Heparin Sodium (Porcine) (Heparin) 5,000 units SC Q8 [facility]; Protocol Last Admin: 05/24/18 13:21 Dose: 5,000 units Home Med (Home Med) 2 unit PO 0700 [facility] Last Admin: 05/24/18 06:40 Dose: 2 unit Hydralazine HCl (Apresoline) 10 mg IVP Q8 PRN; Protocol PRN Reason: Systolic Blood Pressure Insulin Human Regular (Humulin R Low) 0 units SC ACHS [facility]; Protocol Last Admin: 05/24/18 11:49 Dose: 2 u Lidocaine (Lidoderm) 1 ea TD DAILY [facility] Last Admin: 05/24/18 09:22 Dose: 1 ea Losartan Potassium (Cozaar) 50 mg PO DAILY [facility]; Protocol Magnesium Oxide (Mag-Ox) 200 mg PO DAILY [facility]; Protocol Last Admin: 05/24/18 09:24 Dose: 200 mg Morphine Sulfate (Morphine) 2 mg IVP Q4H PRN; Protocol PRN Reason: Pain, severe (8-10) Last Admin: 05/22/18 09:17 Dose: 2 mg Oxycodone/Acetaminophen (Percocet 5/325 Mg Tab) 1 tab PO Q6H PRN; Protocol PRN Reason: Pain, moderate (4-7) Stop: 05/24/18 15:19 Last Admin: 05/24/18 08:39 Dose: 1 tab Pantoprazole Sodium (Protonix Ec Tab) 40 mg PO 0600 [facility]; Protocol Last Admin: 05/24/18 05:56 Dose: 40 mg Polyethylene Glycol (Miralax) 17 gm PO BID [facility]; Protocol Last Admin: 05/24/18 09:25 Dose: 17 gm Prednisone (Prednisone Tab) 5 mg PO 0700 [facility] Last Admin: 05/24/18 06:40 Dose: 5 mg Senna/Docusate Sodium (Senokot S 50 Mg-8.6 Mg) 1 tab PO DAILY [facility]; Protocol Last Admin: 05/24/18 09:25 Dose: 1 tab Tamsulosin HCl (Flomax) 0.4 mg PO BID [facility]; Protocol Last Admin: 05/24/18 09:22 Dose: 0.4 mg - Labs Labs: 05/23/18 06:30 05/23/18 06:30 Attending/Attestation - Attestation I have personally seen and examined this patient.: Yes I have fully participated in the care of the patient.: Yes I have reviewed all pertinent clinical information, including history, physical exam and plan: Yes Notes (Text): 05/24/18 13:49 88 year old male with past medical history of CAD s/p CABG, hypertension and prostate cancer with mets to lumbar spine s/p radiation therapy, on Zytiga therapy who presented with intractable back pain. He was transferred to TCU for physical rehab therapy. He is on percocet prn, gabapentin and lidoderm patch. Continue with physical therapy as tolerated. He is also on aspirin, statin, cozaar and norvasc. Blood pressure is low normal today so his cozaar dose is reduced. Will continue to monitor. Tanvir Marcos MD Hospitalist.
[2018-05-25] MEDS: Pantoprazole 40 mg EC Tab PO SCH (05:46)
[2018-05-25] MEDS: Insulin Reg-LOW-Coverage SC SCH ×4 (06:33→21:23)
[2018-05-25] MEDS: ZYTIGA 250 MG PO SCH (06:35)
[2018-05-25] MEDS: Lidocaine 5% Patch TD SCH (09:27)
[2018-05-25] MEDS: Magnesium Oxide 400 mg Tab UD PO SCH (09:27)
[2018-05-25] MEDS: POLYETHYLENE GLYCOL 3350 17 GM/Dose PACKET PO SCH ×2 (09:28→17:23)
[2018-05-25] MEDS: Docusate-Senna 50 mg-8.6 mg Tab PO SCH (09:28)
[2018-05-26] MEDS ORDERED: Oxycodone/Acetaminophen 5/325 mg Tab PO STA (01:36)
[2018-05-26] MEDS: Pantoprazole 40 mg EC Tab PO SCH (05:35)
[2018-05-26] MEDS: ZYTIGA 250 MG PO SCH (06:37)
--- NOTE | 2018-05-26 08:08 | CP.PCM.PN ---
<Neptali Alan - Last Filed: 05/26/18 14:01> Subjective - Date & Time of Evaluation Date of Evaluation: 05/26/18 Time of Evaluation: 06:00 - Subjective Subjective: Pt seen and examined at bedside in TCU. Pt states he experienced pain in his hips after physical therapy which is mostly controlled with the percocet Objective - Vital Signs/Intake and Output Vital Signs (last 24 hours): Temp Pulse Resp BP Pulse Ox 98.2 F 73 18 113/53 L 98 05/25/18 16:30 05/25/18 16:30 05/25/18 16:30 05/25/18 16:30 05/25/18 16:30 - Medications Medications: Current Medications Amlodipine Besylate (Norvasc) 5 mg PO DAILY [facility]; Protocol Last Admin: 05/25/18 09:28 Dose: 5 mg Aspirin (Ecotrin) 81 mg PO 0800 [facility]; Protocol Last Admin: 05/25/18 07:33 Dose: 81 mg Atorvastatin Calcium (Lipitor) 20 mg PO HS [facility]; Protocol Last Admin: 05/25/18 21:23 Dose: 20 mg Gabapentin (Neurontin) 300 mg PO Q8 [facility]; Protocol Last Admin: 05/26/18 05:34 Dose: 300 mg Heparin Sodium (Porcine) (Heparin) 5,000 units SC Q8 [facility]; Protocol Last Admin: 05/26/18 05:34 Dose: 5,000 units Home Med (Home Med) 2 unit PO 0700 [facility] Last Admin: 05/26/18 06:37 Dose: 2 unit Hydralazine HCl (Apresoline) 10 mg IVP Q8 PRN; Protocol PRN Reason: Systolic Blood Pressure Insulin Human Regular (Humulin R Low) 0 units SC ACHS [facility]; Protocol Last Admin: 05/25/18 21:23 Dose: Not Given Lidocaine (Lidoderm) 1 ea TD DAILY [facility] Last Admin: 05/25/18 09:27 Dose: 1 ea Losartan Potassium (Cozaar) 50 mg PO DAILY [facility]; Protocol Magnesium Oxide (Mag-Ox) 200 mg PO DAILY [facility]; Protocol Last Admin: 05/25/18 09:27 Dose: 200 mg Pantoprazole Sodium (Protonix Ec Tab) 40 mg PO 0600 [facility]; Protocol Last Admin: 05/26/18 05:35 Dose: 40 mg Polyethylene Glycol (Miralax) 17 gm PO BID [facility]; Protocol Last Admin: 05/25/18 17:23 Dose: 17 gm Prednisone (Prednisone Tab) 5 mg PO 0700 [facility] Last Admin: 05/25/18 07:34 Dose: 5 mg Senna/Docusate Sodium (Senokot S 50 Mg-8.6 Mg) 1 tab PO DAILY [facility]; Protocol Last Admin: 05/25/18 09:28 Dose: 1 tab Tamsulosin HCl (Flomax) 0.4 mg PO BID [facility]; Protocol Last Admin: 05/25/18 17:22 Dose: 0.4 mg - Labs Labs: 05/23/18 06:30 05/23/18 06:30 - Constitutional Appears: Non-toxic, No Acute Distress - Head Exam Head Exam: ATRAUMATIC, NORMAL INSPECTION, NORMOCEPHALIC - Eye Exam Eye Exam: EOMI - ENT Exam ENT Exam: Mucous Membranes Moist - Neck Exam Neck Exam: Full ROM - Respiratory Exam Respiratory Exam: Clear to Ausculation Bilateral, NORMAL BREATHING PATTERN. absent: Accessory Muscle Use, Wheezes, Respiratory Distress - Cardiovascular Exam Cardiovascular Exam: RRR, +S1, +S2. absent: Diastolic murmur, Murmur - GI/Abdominal Exam GI & Abdominal Exam: Soft, Normal Bowel Sounds. absent: Tenderness - Extremities Exam Extremities Exam: Full ROM, Normal Inspection. absent: Pedal Edema - Neurological Exam Neurological Exam: Alert, Awake, Oriented x3 - Psychiatric Exam Psychiatric exam: Normal Affect, Normal Mood - Skin Skin Exam: Dry, Intact, Normal Color Assessment and Plan - Assessment and Plan (Free Text) Assessment: Mr Butts, 88 M, with PMH CAD s/p CABG (2013), newly diagnosed prostate cancer in September 2017 with metastasis to the lumbar spine (s/p laser vaporization of prostate and currently on radiation on lumbar spine, most recent one being yesterday, session #10), sciatica with bulging discs, CKD 3 and DM, C/O intractable low back/hip/LE pain, failed outpatient medrol dose jairo and tramadol. He was found to have new pain on L thigh and frequent falls. Continue with pain management and physical therapy in TCU for rehab Plan: Intractable lower back, b/l hip, and b/l LE pain - Sciatica and Bone mets from prostate - continue physical therapy - Percocet 1q6 PRN for moderate pain - Lidoderm - Prednisone 5mg po - Gabapentin 300mg Q8 - Dr Murdock, neurology for radiculopathy management - Dr Puente, heme/onc for cancer bone metastasis management HTN - Norvasc 5mg po daily - Cozaar 50mg po daily, decreased dose - Hydralazine 10mg IVP q8h prn - continue to monitor blood pressure DM - A1C 6.5 - ISS low dose Chronic anemia - Asymptomatic - Hemodynamically stable Hx Prostate CA s/p cystoscopy with laser vaporization of prostate - currently on radiation; continue outpatient - Tamsulosin 0.4mg po bid Hx CAD s/p CABG - ASA 81mg daily - Lipitor 20mg po HS R middle lobe lung nodule - CT chest outpatient Constipation, diverticulosis, Hx colon polyps - Miralax - Senokot Hx frequent falls - Physical therapy for conditioning - Patient has bone mets PPx - Heparin 5000 SC - Protonix 40 po Pt seen, examined, assessment and plan discussed with Hemant Alan PGY1, Internal Medicine Resident <Tanvir Marcos - Last Filed: 05/26/18 14:30> Objective - Vital Signs/Intake and Output Vital Signs (last 24 hours): Temp Pulse Resp BP Pulse Ox 98.2 F 73 18 160/61 H 98 05/25/18 16:30 05/25/18 16:30 05/25/18 16:30 05/26/18 09:48 05/25/18 16:30 - Medications Medications: Current Medications Amlodipine Besylate (Norvasc) 5 mg PO DAILY [facility]; Protocol Last Admin: 05/26/18 09:48 Dose: 5 mg Aspirin (Ecotrin) 81 mg PO 0800 [facility]; Protocol Last Admin: 05/26/18 08:31 Dose: 81 mg Atorvastatin Calcium (Lipitor) 20 mg PO HS [facility]; Protocol Last Admin: 05/25/18 21:23 Dose: 20 mg Gabapentin (Neurontin) 300 mg PO Q8 [facility]; Protocol Last Admin: 05/26/18 13:32 Dose: 300 mg Heparin Sodium (Porcine) (Heparin) 5,000 units SC Q8 [facility]; Protocol Last Admin: 05/26/18 13:31 Dose: 5,000 units Home Med (Home Med) 2 unit PO 0700 [facility] Last Admin: 05/26/18 06:37 Dose: 2 unit Hydralazine HCl (Apresoline) 10 mg IVP Q8 PRN; Protocol PRN Reason: Systolic Blood Pressure Insulin Human Regular (Humulin R Low) 0 units SC ACHS [facility]; Protocol Last Admin: 05/26/18 12:18 Dose: 1 u Lidocaine (Lidoderm) 1 ea TD DAILY [facility] Last Admin: 05/26/18 09:46 Dose: 1 ea Losartan Potassium (Cozaar) 50 mg PO DAILY [facility]; Protocol Last Admin: 05/26/18 09:46 Dose: 50 mg Magnesium Oxide (Mag-Ox) 200 mg PO DAILY [facility]; Protocol Last Admin: 05/26/18 09:47 Dose: 200 mg Oxycodone/Acetaminophen (Percocet 5/325 Mg Tab) 1 tab PO Q6H PRN PRN Reason: Pain, moderate (4-7) Stop: 05/29/18 12:04 Pantoprazole Sodium (Protonix Ec Tab) 40 mg PO 0600 [facility]; Protocol Last Admin: 05/26/18 05:35 Dose: 40 mg Polyethylene Glycol (Miralax) 17 gm PO BID [facility]; Protocol Last Admin: 05/26/18 09:47 Dose: 17 gm Prednisone (Prednisone Tab) 5 mg PO 0700 [facility] Last Admin: 05/26/18 08:31 Dose: 5 mg Senna/Docusate Sodium (Senokot S 50 Mg-8.6 Mg) 1 tab PO DAILY [facility]; Protocol Last Admin: 05/26/18 09:48 Dose: 1 tab Tamsulosin HCl (Flomax) 0.4 mg PO BID [facility]; Protocol Last Admin: 05/26/18 09:46 Dose: 0.4 mg - Labs Labs: 05/23/18 06:30 05/23/18 06:30 Attending/Attestation - Attestation I have personally seen and examined this patient.: Yes I have fully participated in the care of the patient.: Yes I have reviewed all pertinent clinical information, including history, physical exam and plan: Yes Notes (Text): 05/26/18 14:29 88 year old male with past medical history of CAD s/p CABG, hypertension and prostate cancer with mets to lumbar spine s/p radiation therapy, on Zytiga therapy who presented with intractable back pain. He was transferred to TCU for physical rehab therapy. He is on percocet prn, gabapentin and lidoderm patch. He is also on aspirin, statin, cozaar and norvasc. He states his pain has overall improved since admission. Continue with physical therapy as tolerated. Tanvir Marcos MD Hospitalist.
[2018-05-26] MEDS: Insulin Reg-LOW-Coverage SC SCH ×4 (08:31→21:15)
[2018-05-26] MEDS: Lidocaine 5% Patch TD SCH (09:46)
[2018-05-26] MEDS: POLYETHYLENE GLYCOL 3350 17 GM/Dose PACKET PO SCH ×2 (09:47→17:07)
[2018-05-26] MEDS: Magnesium Oxide 400 mg Tab UD PO SCH (09:47)
[2018-05-26] MEDS: Docusate-Senna 50 mg-8.6 mg Tab PO SCH (09:48)
[2018-05-26] MEDS: Oxycodone/Acetaminophen 5/325 mg Tab PO PRN (22:44)
[2018-05-27] MEDS: Pantoprazole 40 mg EC Tab PO SCH (05:34)
[2018-05-27] MEDS: Insulin Reg-LOW-Coverage SC SCH ×4 (06:34→21:35)
[2018-05-27] MEDS: ZYTIGA 250 MG PO SCH (06:34)
[2018-05-27] MEDS: Magnesium Oxide 400 mg Tab UD PO SCH (09:13)
[2018-05-27] MEDS: POLYETHYLENE GLYCOL 3350 17 GM/Dose PACKET PO SCH ×2 (09:13→17:19)
[2018-05-27] MEDS: Lidocaine 5% Patch TD SCH (09:13)
[2018-05-27] MEDS: Docusate-Senna 50 mg-8.6 mg Tab PO SCH (09:14)
[2018-05-27] MEDS ORDERED: Influenza Vaccine 60 mcg/0.5 mL SYR (4YR UP) IM ONE (13:30)
[2018-05-27] MEDS: Oxycodone/Acetaminophen 5/325 mg Tab PO PRN (22:10)
[2018-05-28] MEDS: ZYTIGA 250 MG PO SCH (06:05)
[2018-05-28] MEDS: Pantoprazole 40 mg EC Tab PO SCH (06:05)
[2018-05-28] MEDS: Insulin Reg-LOW-Coverage SC SCH ×2 (06:51→12:23)
[2018-05-28 06:53] VITALS: O2SAT 94
[2018-05-28] MEDS: Oxycodone/Acetaminophen 5/325 mg Tab PO PRN (07:23)
[2018-05-28] MEDS: Docusate-Senna 50 mg-8.6 mg Tab PO SCH (09:38)
[2018-05-28] MEDS: Magnesium Oxide 400 mg Tab UD PO SCH (09:39)
[2018-05-28] MEDS: Lidocaine 5% Patch TD SCH (09:39)
[2018-05-28] MEDS: POLYETHYLENE GLYCOL 3350 17 GM/Dose PACKET PO SCH (09:39)
[2018-05-28 10:51] VITALS: BP 123/71; PULSE 67; RESP 17; TEMP 98.4
--- NOTE | 2018-05-28 11:53 | CP.PCM.DIS ---
<Neptali Alan - Last Filed: 05/28/18 12:17> Provider - Provider Date of Admission: 05/21/18 15:15 Attending physician: Tanvir Marcos MD Time Spent in preparation of Discharge (in minutes): 45 Diagnosis - Discharge Diagnosis (1) Prostate cancer Status: Acute Priority: High (2) Acute kidney injury Status: Acute Priority: High (3) Anemia Status: Chronic Priority: Medium (4) Aortic stenosis Status: Chronic Priority: Medium (5) Asthma Status: Chronic Priority: High (6) CAD (coronary artery disease) Status: Chronic Priority: High Hospital Course - Lab Results Lab Results: Most Recent Lab Values WBC 4.6 10^3/ul (4.5-11.0) D 05/23/18 06:30 RBC 2.82 10^6/uL (3.5-6.1) L 05/23/18 06:30 Hgb 8.5 g/dL (14.0-18.0) L 05/23/18 06:30 Hct 25.6 % (42.0-52.0) L 05/23/18 06:30 MCV 90.8 fl (80.0-105.0) 05/23/18 06:30 MCH 30.1 pg (25.0-35.0) 05/23/18 06:30 MCHC 33.2 g/dl (31.0-37.0) 05/23/18 06:30 RDW 16.6 % (11.5-14.5) H 05/23/18 06:30 Plt Count 161 10^3/uL (120.0-450.0) 05/23/18 06:30 MPV 9.2 fl (7.0-11.0) 05/23/18 06:30 Gran % 64.4 % (50.0-68.0) 05/23/18 06:30 Lymph % (Auto) 21.0 % (22.0-35.0) L 05/23/18 06:30 [place] % (Auto) 10.5 % (1.0-6.0) H 05/23/18 06:30 Eos % (Auto) 3.9 % (1.5-5.0) 05/23/18 06:30 Baso % (Auto) 0.2 % (0.0-3.0) 05/23/18 06:30 Gran # 2.94 (1.4-6.5) 05/23/18 06:30 Lymph # (Auto) 1.0 (1.2-3.4) L 05/23/18 06:30 [place] # (Auto) 0.5 (0.1-0.6) 05/23/18 06:30 Eos # (Auto) 0.2 (0.0-0.7) 05/23/18 06:30 Baso # (Auto) 0.01 K/mm3 (0.0-2.0) 05/23/18 06:30 Sodium 136 mmol/L (132-148) 05/23/18 06:30 Potassium 4.5 mmol/L (3.6-5.0) 05/23/18 06:30 Chloride 103 mmol/L (98-107) 05/23/18 06:30 Carbon Dioxide 28 mmol/L (21-33) 05/23/18 06:30 Anion Gap 9 (10-20) L 05/23/18 06:30 BUN 53 mg/dL (7-21) H 05/23/18 06:30 Creatinine 1.5 mg/dl (0.8-1.5) 05/23/18 06:30 Est GFR ( Amer) 53 05/23/18 06:30 Est GFR (Non-Af Amer) 44 05/23/18 06:30 POC Glucose (mg/dL) 163 mg/dL (65-110) H 05/27/18 21:34 Random Glucose 102 mg/dL (70-110) 05/23/18 06:30 Calcium 8.6 mg/dL (8.4-10.5) 05/23/18 06:30 Phosphorus 3.8 mg/dL (2.5-4.5) 05/23/18 06:30 Magnesium 2.3 mg/dL (1.7-2.2) H 05/23/18 06:30 Total Bilirubin 0.2 mg/dL (0.2-1.3) 05/23/18 06:30 AST 21 U/L (17-59) 05/23/18 06:30 ALT 27 U/L (7-56) 05/23/18 06:30 Alkaline Phosphatase 101 U/L (38-126) 05/23/18 06:30 Total Protein 6.1 g/dL (5.8-8.3) 05/23/18 06:30 Albumin 3.4 g/dL (3.0-4.8) 05/23/18 06:30 Globulin 2.7 gm/dL 05/23/18 06:30 Albumin/Globulin Ratio 1.2 (1.1-1.8) 05/23/18 06:30 - Hospital Course Hospital Course: Patient is 88 yo M with PMH CAD s/p CABG, 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 Pt was admitted to the medical floor 05/18 for intractable back lower back pain 05/11 radiating to his right lower legs, right worse than left. Patients pain medications were optimized and patient was transferred to TCU for physical therapy. In TCU patient had some leg pain after PT session and his Neurontin was increased from 100mg to 200 mg PO TID. He was advised to take pain medications before PT sessions which patient reported helped with his pain. Pt was on Percocet prn, gabapentin and Lidoderm patch. His pain overall improved since admission and he continued to improve with physical therapy. In TCU, his blood pressure was noted to be in the 160s/60s and his home cozaar was increased to 75mg daily. However, pt subsequently became hypotensive and his cozaar was decreased back down to 50mg daily. His blood pressure is currently stable at 130s/70s on Cozaar 50mg daily and Norvasc 5mg daily. Pt is being discharged on Percocet 5/325 mg q6 prn for pain to home with home health and and rolling walker. - Date & Time of H&P Date of H&P: 05/28/18 Time of H&P: 06:00 Discharge Exam - Head Exam Head Exam: ATRAUMATIC, NORMAL INSPECTION, NORMOCEPHALIC - Eye Exam Eye Exam: EOMI Pupil Exam: NORMAL ACCOMODATION - ENT Exam ENT Exam: Mucous Membranes Moist - Respiratory Exam Respiratory Exam: NORMAL BREATHING PATTERN, UNREMARKABLE. absent: Accessory Muscle Use, Wheezes, Respiratory Distress - Cardiovascular Exam Cardiovascular Exam: RRR, +S1, +S2. absent: Diastolic murmur, Systolic Murmur - GI/Abdominal Exam GI & Abdominal Exam: Normal Bowel Sounds, Soft, Unremarkable. absent: Tendern ess - Extremities Exam Extremities exam: full ROM, pedal pulses present - Neurological Exam Neurological exam: Alert, Oriented x3 - Psychiatric Exam Psychiatric exam: Normal Affect, Normal Mood - Skin Skin Exam: Dry, Normal Color, Warm Discharge Plan - Discharge Medications Prescriptions: RX: Losartan [Cozaar] 50 mg PO DAILY #30 tab - Follow Up Plan Condition: GOOD Disposition: HOME/ ROUTINE Instructions: Type 2 Diabetes, Heart Healthy Diet, Preventing Falls in the Older Adult, High Blood Pressure (DC), Sciatica (DC), Prostate Cancer (DC), Bone Metastasis, Asthma (DC), Asthma (GEN) Additional Instructions: 1. please follow up with your primary care physician within 1 week 2. please take your medications as directed 3. new prescriptions have been written for you and will be given on discharge 4. if your symptoms return or worsen, please go to the nearest emergency department <Tanvir Marcos - Last Filed: 05/28/18 18:33> Provider - Provider Date of Admission: 05/21/18 15:15 Attending physician: Tanvir Marcos MD Hospital Course - Lab Results Lab Results: Most Recent Lab Values WBC 4.6 10^3/ul (4.5-11.0) D 05/23/18 06:30 RBC 2.82 10^6/uL (3.5-6.1) L 05/23/18 06:30 Hgb 8.5 g/dL (14.0-18.0) L 05/23/18 06:30 Hct 25.6 % (42.0-52.0) L 05/23/18 06:30 MCV 90.8 fl (80.0-105.0) 05/23/18 06:30 MCH 30.1 pg (25.0-35.0) 05/23/18 06:30 MCHC 33.2 g/dl (31.0-37.0) 05/23/18 06:30 RDW 16.6 % (11.5-14.5) H 05/23/18 06:30 Plt Count 161 10^3/uL (120.0-450.0) 05/23/18 06:30 MPV 9.2 fl (7.0-11.0) 05/23/18 06:30 Gran % 64.4 % (50.0-68.0) 05/23/18 06:30 Lymph % (Auto) 21.0 % (22.0-35.0) L 05/23/18 06:30 [place] % (Auto) 10.5 % (1.0-6.0) H 05/23/18 06:30 Eos % (Auto) 3.9 % (1.5-5.0) 05/23/18 06:30 Baso % (Auto) 0.2 % (0.0-3.0) 05/23/18 06:30 Gran # 2.94 (1.4-6.5) 05/23/18 06:30 Lymph # (Auto) 1.0 (1.2-3.4) L 05/23/18 06:30 [place] # (Auto) 0.5 (0.1-0.6) 05/23/18 06:30 Eos # (Auto) 0.2 (0.0-0.7) 05/23/18 06:30 Baso # (Auto) 0.01 K/mm3 (0.0-2.0) 05/23/18 06:30 Sodium 136 mmol/L (132-148) 05/23/18 06:30 Potassium 4.5 mmol/L (3.6-5.0) 05/23/18 06:30 Chloride 103 mmol/L (98-107) 05/23/18 06:30 Carbon Dioxide 28 mmol/L (21-33) 05/23/18 06:30 Anion Gap 9 (10-20) L 05/23/18 06:30 BUN 53 mg/dL (7-21) H 05/23/18 06:30 Creatinine 1.5 mg/dl (0.8-1.5) 05/23/18 06:30 Est GFR ( Amer) 53 05/23/18 06:30 Est GFR (Non-Af Amer) 44 05/23/18 06:30 POC Glucose (mg/dL) 163 mg/dL (65-110) H 05/27/18 21:34 Random Glucose 102 mg/dL (70-110) 05/23/18 06:30 Calcium 8.6 mg/dL (8.4-10.5) 05/23/18 06:30 Phosphorus 3.8 mg/dL (2.5-4.5) 05/23/18 06:30 Magnesium 2.3 mg/dL (1.7-2.2) H 05/23/18 06:30 Total Bilirubin 0.2 mg/dL (0.2-1.3) 05/23/18 06:30 AST 21 U/L (17-59) 05/23/18 06:30 ALT 27 U/L (7-56) 05/23/18 06:30 Alkaline Phosphatase 101 U/L (38-126) 05/23/18 06:30 Total Protein 6.1 g/dL (5.8-8.3) 05/23/18 06:30 Albumin 3.4 g/dL (3.0-4.8) 05/23/18 06:30 Globulin 2.7 gm/dL 05/23/18 06:30 Albumin/Globulin Ratio 1.2 (1.1-1.8) 05/23/18 06:30 Attending/Attestation - Attestation I have personally seen and examined this patient.: Yes I have fully participated in the care of the patient.: Yes I have reviewed all pertinent clinical information, including history, physical exam and plan: Yes Notes (Text): 05/28/18 16:28 88 year old male with past medical history of CAD s/p CABG, hypertension and prostate cancer with mets to lumbar spine s/p radiation therapy, on Zytiga therapy who presented with intractable back pain. He was transferred to TCU for physical rehab therapy which he is tolerating. He was on percocet prn, gabapentin and lidoderm patch. Patient is discharged home to follow up with pmd. Follow up with hematology/oncology. Patient has appointment at [facility]. Tanvir Marcos MD Hospitalist.
== END 2018-05-28 15:09 | disposition home health service (06) | DRG 544 ==
LOC: TRCU 15:15
PROVIDERS: ADMIT Internal Medicine; ATTEND Internal Medicine
PROC: F07Z9FZ Gait Training/Functional Ambulation Treatment using Assistive, Adaptive, Supportive or Protective Equipment (ICD-10-PCS; principal; 2018-05-22)
PROC: F07Z8FZ Transfer Training Treatment using Assistive, Adaptive, Supportive or Protective Equipment (ICD-10-PCS; 2018-05-22)
PROC: F07L6FZ Therapeutic Exercise Treatment of Musculoskeletal System - Lower Back / Lower Extremity using Assistive, Adaptive, Supportive or Protective Equipment (ICD-10-PCS; 2018-05-22)
PROC: F07Z5FZ Bed Mobility Treatment using Assistive, Adaptive, Supportive or Protective Equipment (ICD-10-PCS; 2018-05-23)
PROC: F08Z1FZ Dressing Techniques Treatment using Assistive, Adaptive, Supportive or Protective Equipment (ICD-10-PCS; 2018-05-23)
PROC: F08Z2ZZ Grooming/Personal Hygiene Treatment (ICD-10-PCS; 2018-05-23)
DX: C79.51 Secondary malignant neoplasm of bone (principal); C61 Malignant neoplasm of prostate; I12.9 Hypertensive chronic kidney disease with stage 1 through stage 4 chronic kidney disease, or unspecified chronic kidney disease; N18.3 Chronic kidney disease, stage 3 (moderate); I25.10 Atherosclerotic heart disease of native coronary artery without angina pectoris; E11.22 Type 2 diabetes mellitus with diabetic chronic kidney disease; D64.9 Anemia, unspecified; J45.909 Unspecified asthma, uncomplicated; K57.90 Diverticulosis of intestine, part unspecified, without perforation or abscess without bleeding; M54.17 Radiculopathy, lumbosacral region; K59.00 Constipation, unspecified; R29.6 Repeated falls; I35.0 Nonrheumatic aortic (valve) stenosis; Z95.2 Presence of prosthetic heart valve; Z79.84 Long term (current) use of oral hypoglycemic drugs; Z95.1 Presence of aortocoronary bypass graft; Z87.891 Personal history of nicotine dependence; Z86.010 Personal history of colon polyps

== ENCOUNTER 2018-07-02 08:22 | Inpatient (IN) | payer MEDICARE ==
[2018-07-02 08:22] VITALS: PULSE 110
[2018-07-02 08:27] VITALS: BMI 20.9
[2018-07-02] MEDS ORDERED: Morphine 4 mg/ml ISec IVP STA (08:43)
--- NOTE | 2018-07-02 09:00 | ED PDOC ---
Arrival/HPI - General Chief Complaint: Back Pain Time Seen by Provider: 07/02/18 08:32 Historian: Patient - History of Present Illness Narrative History of Present Illness (Text): 07/02/18 08:41 88 year old male, whose past medical history includes includes CAD s/p CABG (2013), prostate cancer with lumbar metastasis, sciatica, disc disease, diabetes, and CKD, presents to the emergency department complaining of chronic lower back pain. Patient was admitted 5 weeks ago for similar complaints. Patient had palliative radiation to spine and is taking Ultram, Predinsone, and Ibuprofen with no improvement. He states he feels weak, has difficulty walking, and feels that he needs to be in rehab. Patient quit smoking 63 years ago. Patient denies any fevers, chills, chest pain, shortness of breath, abdominal pain, nausea, vomiting, diarrhea, neck pain, urinary symptoms, headache, dizziness, or any other complaint. PMD: Dr. Moreland Oncologist: Dr. Garrison at [facility] Symptom Onset: Gradual Symptom Course: Unchanged Activities at Onset: Light Context: Home Associated Symptoms (Text): 07/02/18 09:17 Prostate cancer with known lumbar metastases. Palliative radiation. Chronic low back pain. Unresponsive to current regimen. Patient is requesting additional rehabilitation. He is weak and fatigued and has difficulty walking. Past Medical History - Provider Review Nursing Documentation Reviewed: Yes - Past History Past History: Non-Contributing - Infectious Disease Hx of Infectious Diseases: None - Tetanus Immunization Tetanus Immunization: Unknown - Past Medical History Past Medical History: Non-Contributing - Cardiac Hx Cardiac Disorders: Yes (s/p CABG) Hx Hypertension: Yes - Pulmonary Hx Respiratory Disorders: Yes Hx Asthma: Yes - Neurological Hx Neurological Disorder: No - HEENT Hx HEENT Disorder: No - Renal Hx Renal Disorder: No - Endocrine/Metabolic Hx Endocrine Disorders: Yes Hx Diabetes Mellitus Type 2: Yes - Hematological/Oncological Hx Blood Disorders: Yes - Integumentary Hx Dermatological Disorder: No - Musculoskeletal/Rheumatological Hx Falls: Yes (fell to knees at home recently) - Gastrointestinal Hx Gastrointestinal Disorders: No - Genitourinary/Gynecological Hx Genitourinary Disorders: Yes Hx Prostate Problems: Yes - Psychiatric Hx Psychophysiologic Disorder: No Hx Substance Use: No - Surgical History Hx Coronary Artery Bypass Graft: Yes - Anesthesia Hx Anesthesia: Yes Hx Anesthesia Reactions: No Hx Malignant Hyperthermia: No - Suicidal Assessment Feels Threatened In Home Enviroment: No Family/Social History - Physician Review Nursing Documentation Reviewed: Yes Family/Social History: No Known Family HX Smoking Status: Former Smoker (Quit smoking 60 years ago) Hx Alcohol Use: No Hx Substance Use: No Allergies/Home Meds Allergies/Adverse Reactions: Allergies No Known Allergies Allergy (Verified 05/18/18 12:06) Home Medications: Home Meds Medication Instructions Recorded Confirmed Atorvastatin Calcium [Lipitor] 20 mg PO QPM 10/12/14 07/02/18 Aspirin [Ecotrin] 81 mg PO DAILY 02/10/16 07/02/18 Tamsulosin [Flomax] 0.4 mg PO BID 05/18/18 07/02/18 amLODIPine [Norvasc] 5 mg PO DAILY 05/18/18 07/02/18 Latanoprost 0.005% Opht [Xalatan 1 drop EACHEYE HS 05/21/18 07/02/18 Opht] metFORMIN [glucOPHAGE] 500 mg PO ACBD 05/21/18 07/02/18 Gabapentin [Neurontin] 300 mg PO Q8 07/02/18 07/02/18 Niacin [Plain Niacin] 500 mg PO DAILY 07/02/18 07/02/18 Zitiga 2 tab PO DAILY 07/02/18 07/02/18 predniSONE [predniSONE Tab] 5 mg PO DAILY 07/02/18 07/02/18 Review of Systems - Physician Review All systems were reviewed & negative as marked: Yes - Review of Systems Constitutional: Fatigue. absent: Fevers, Other (Chills) Respiratory: absent: SOB Cardiovascular: absent: Chest Pain Gastrointestinal: absent: Abdominal Pain, Diarrhea, Nausea, Vomiting Genitourinary Male: absent: Dysuria, Frequency, Hematuria Musculoskeletal: Back Pain. absent: Arthralgias, Neck Pain Neurological: absent: Headache, Dizziness, Focal Weakness Physical Exam Vital Signs Reviewed: Yes Vital Signs Temp Pulse Resp BP Pulse Ox 07/02/18 08:23 98.2 F 87 18 170/70 H 100 Temperature: Afebrile Blood Pressure: Hypertensive Pulse: Regular Respiratory Rate: Normal Appearance: Positive for: Well-Appearing, Non-Toxic, Uncomfortable, Other (Pale). No: Comfortable Pain Distress: Mild Mental Status: Positive for: Alert and Oriented X 3 - Systems Exam Head: Present: Atraumatic, Normocephalic Pupils: Present: PERRL Extroacular Muscles: Present: EOMI Conjunctiva: Present: Normal Mouth: Present: Moist Mucous Membranes Neck: Present: Normal Range of Motion Respiratory/Chest: Present: Clear to Auscultation, Good Air Exchange. No: Respiratory Distress, Accessory Muscle Use Cardiovascular: Present: Regular Rate and Rhythm, Normal S1, S2. No: Murmurs Abdomen: No: Tenderness, Distention, Peritoneal Signs Back: Present: Paraspinal Tenderness, Other (bilateral lumbar spine paraspinous tenderness). No: CVA Tenderness, Midline Tenderness, Pain with Leg Raise Upper Extremity: Present: Normal Inspection. No: Cyanosis, Edema Lower Extremity: Present: Normal Inspection. No: Edema Neurological: Present: GCS=15, CN II-XII Intact, Speech Normal, Motor Func Grossly Intact, Normal Sensory Function, Normal Cerebellar Funct Skin: Present: Warm, Dry, Pale. No: Rashes Psychiatric: Present: Alert, Oriented x 3, Normal Insight, Normal Concentration Medical Decision Making ED Course and Treatment: 07/02/18 08:41 Impression: 88 year old male presents complaining of chronic lower back pain and weakness. Patient's past medical history includes prostate cancer with metastasis to the lumbar spine, sciatica, and disc disease. Plan: -- EKG -- Labs -- CXR -- Zofran, Morphine -- Reassess and disposition Prior Visits: Notes and results from previous visits were reviewed. Progress Notes: 07/02/18 09:19 EKG shows normal sinus rhythm rate approximately 80 with markedly sinus arrhythmia and nonspecific T-wave changes with no acute changes. 07/02/18 09:[address] on a regular observation and requests plain films of the lumbosacral spine. - Lab Interpretations I have reviewed the lab results: Yes - RAD Interpretation Radiology Orders: 07/02/18 08:42 CHEST PORTABLE [RAD] Stat Drying Room Operator: Radiologist - EKG Interpretation Interpreted by ED Physician: Yes Type: 12 lead EKG - Medication Orders Current Medication Orders: Discontinued Medications Morphine Sulfate (Morphine) 4 mg IVP STAT STA Stop: 07/02/18 08:44 Ondansetron HCl (Zofran Inj) 4 mg IVP ONCE ONE Stop: 07/02/18 08:44 - Scribe Statement The provider has reviewed the documentation as recorded by the Kaila Lee Provider Scribe Attestation: All medical record entries made by the Kaila were at my direction and personally dictated by me. I have reviewed the chart and agree that the record accurately reflects my personal performance of the history, physical exam, medical decision making, and the department course for this patient. I have also personally directed, reviewed, and agree with the discharge instructions and disposition. Disposition/Present on Arrival - Present on Arrival Any Indicators Present on Arrival: No History of DVT/PE: No History of Uncontrolled Diabetes: No Urinary Catheter: No History of Decub. Ulcer: No History Surgical Site Infection Following: None - Disposition Have Diagnosis and Disposition been Completed?: Yes Diagnosis: Prostate cancer metastatic to bone, Diabetes mellitus, HTN (hypertension), Anemia, Low back pain, Sciatica, Hyperglycemia, Dehydration Disposition: HOSPITALIZED Disposition Time: 09:45 Patient Plan: Observation Condition: FAIR Forms: [employer] ([place]ian)
[2018-07-02 09:21] LABS: BASO # 0.04 K/mm3 (0.0-2.0); BASO % 0.4 % (0.0-3.0); EOS # 0.2 (0.0-0.7); EOS % 2.2 % (1.5-5.0); GRAN # 9.13 (1.4-6.5); GRAN % 87.1 % (50.0-68.0); HEMOGLOBIN 8.3 g/dL (14.0-18.0); LYMPH # 0.7 (1.2-3.4); LYMPH % 6.5 % (22.0-35.0); MEAN CELL VOLUME 96.7 fl (80.0-105.0); MEAN CORPUSCULAR HEMOGLOBIN 30.6 pg (25.0-35.0); MEAN CORPUSCULAR HGB CONC 31.7 g/dl (31.0-37.0); MEAN PLATELET VOLUME 9.4 fl (7.0-11.0); MONO # 0.4 (0.1-0.6); MONO % 3.8 % (1.0-6.0); RBC 2.71 10^6/uL (3.5-6.1); RED CELL DISTRIBUTION WIDTH 15.5 % (11.5-14.5); WHITE BLOOD COUNT 10.5 10^3/uL (4.5-11.0)
[2018-07-02 09:28] LABS: ALB/GLOB RATIO 1.2 (1.1-1.8); ALBUMIN 3.5 g/dL (3.0-4.8); ALT/SGPT 23 U/L (7-56); AST/SGOT 24 U/L (17-59); BLOOD UREA NITROGEN 34 mg/dL (7-21); GFR NON-AFRICAN AMERICAN 57
[2018-07-02 09:39] LABS: TROPONIN I < 0.01 ng/mL
--- NOTE | 2018-07-02 09:53 | CP.PCM.HP ---
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 Patient denies any trauma. Patient normally gets around with a walker but has recently had issues ambulating and had increase in falls. Patient states this morning he almost lost his balance because he couldn't support himself with his legs. Patient denied hitting his head recently. He states he lives with his son. Patient denies chest pain, SOB, fever, chills, loss of urinary incontinence, paresthesias, fatigue, loss of appetite or any other complaints at this time. 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 3pack a day. Denies illicit drug use, denies alcohol use Lives with his two sons, elder son lives upstairs with him. Younger son lives downstairs Allergies: NKDA Meds: as per SEP PMD: Dr Moreland Radiation Oncologist: Dr Mcpherson in [place] Urologist: Dr Jeffries Neurologist: Dr Murdock Cardio: Trixie Nephro: Yumiko GI: Dr Menchaca Present on Admission - Present on Admission Any Indicators Present on Admission: No Review of Systems - Constitutional Constitutional: absent: Anorexia, Chills, Fatigue, Fever - EENT Eyes: absent: Blurred Vision, Change in Vision Nose/Mouth/Throat: absent: Nasal Congestion - Cardiovascular Cardiovascular: absent: Chest Pain, Chest Pain with Activity, Dyspnea, Irregular Heart Rhythm, Lightheadedness, Palpitations - Respiratory Respiratory: absent: Cough, Dyspnea - Gastrointestinal Gastrointestinal: absent: Abdominal Pain, Constipation, Diarrhea, Nausea, Vomiting - Genitourinary Genitourinary: absent: Difficulty Urinating, Dysuria, Hematuria, Urinary Inconti nence - Musculoskeletal Musculoskeletal: Abnormal Gait, Arthralgias, Back Pain, Radiating Pain into Limb. absent: Muscle Weakness, Numbness, Tingling - Neurological Neurological: Frequent Falls. absent: Abnormal Speech, Disequilibrium, Dizziness, Numbness, Focal Weakness, Headaches, Paresthesias, Sensory Deficit, Tingling, Vertigo, Weakness Past Patient History - Infectious Disease Hx of Infectious Diseases: None - Tetanus Immunizations Tetanus Immunization: Unknown - Past Medical History & Family History Past Medical History?: Yes - Past Social History Smoking Status: Former Smoker (Quit smoking 60 years ago) - CARDIAC Hx Cardiac Disorders: Yes (s/p CABG) Hx Hypertension: Yes - PULMONARY Hx Respiratory Disorders: Yes Hx Asthma: Yes - NEUROLOGICAL Hx Neurological Disorder: No - HEENT Hx HEENT Problems: No - RENAL Hx Chronic Kidney Disease: No - ENDOCRINE/METABOLIC Hx Endocrine Disorders: Yes Hx Diabetes Mellitus Type 2: Yes - HEMATOLOGICAL/ONCOLOGICAL Hx Blood Disorders: Yes - INTEGUMENTARY Hx Dermatological Problems: No - MUSCULOSKELETAL/RHEUMATOLOGICAL Hx Falls: Yes (fell to knees at home recently) - GASTROINTESTINAL Hx Gastrointestinal Disorders: No - GENITOURINARY/GYNECOLOGICAL Hx Genitourinary Disorders: Yes Hx Prostate Problems: Yes - PSYCHIATRIC Hx Psychophysiologic Disorder: No Hx Substance Use: No - SURGICAL HISTORY Hx Coronary Artery Bypass Graft: Yes - ANESTHESIA Hx Anesthesia: Yes Hx Anesthesia Reactions: No Hx Malignant Hyperthermia: No Meds Allergies/Adverse Reactions: Allergies Allergy/AdvReac Type Severity Reaction Status Date / Time No Known Allergies Allergy Verified 05/18/18 12:06 Physical Exam - Constitutional Appears: Non-toxic, No Acute Distress - Head Exam Head Exam: ATRAUMATIC, NORMAL INSPECTION, NORMOCEPHALIC - Eye Exam Eye Exam: EOMI, Normal appearance, PERRL Pupil Exam: NORMAL ACCOMODATION - ENT Exam ENT Exam: Mucous Membranes Moist, Normal Exam - Neck Exam Neck exam: Positive for: Normal Inspection - Respiratory Exam Respiratory Exam: Clear to Auscultation Bilateral, NORMAL BREATHING PATTERN - Cardiovascular Exam Cardiovascular Exam: REGULAR RHYTHM, +S1, +S2 - GI/Abdominal Exam GI & Abdominal Exam: Normal Bowel Sounds, Soft. absent: Tenderness - Extremities Exam Extremities exam: Positive for: normal inspection, pedal pulses present. Negative for: calf tenderness, joint swelling, pedal edema Additional comments: sensory and motor strength in tact bilaterally in lower extremities. - Neurological Exam Neurological exam: Alert, CN II-XII Intact, Oriented x3 Results - Vital Signs Recent Vital Signs: Last Vital Signs Temp 98.2 F 07/02/18 08:23 Pulse 87 07/02/18 08:23 Resp 18 07/02/18 08:23 BP 170/70 H 07/02/18 08:23 Pulse Ox 100 07/02/18 08:23 - Labs Result Diagrams: 07/02/18 09:00 07/02/18 09:00 Labs: Laboratory Results - last 24 hr 07/02/18 07/02/18 09:00 09:00 WBC 10.5 RBC 2.71 L Hgb 8.3 L Hct 26.2 L MCV 96.7 D MCH 30.6 MCHC 31.7 RDW 15.5 H Plt Count 210 MPV 9.4 Gran % 87.1 H Lymph % (Auto) 6.5 L [place] % (Auto) 3.8 Eos % (Auto) 2.2 Baso % (Auto) 0.4 Gran # 9.13 H Lymph # (Auto) 0.7 L [place] # (Auto) 0.4 Eos # (Auto) 0.2 Baso # (Auto) 0.04 Sodium 140 Potassium 4.7 Chloride 106 Carbon Dioxide 29 Anion Gap 10 BUN 34 H Creatinine 1.2 Est GFR ( Amer) > 60 Est GFR (Non-Af Amer) 57 Random Glucose 238 H Calcium 9.0 Magnesium 1.9 Total Bilirubin 0.4 AST 24 ALT 23 Alkaline Phosphatase 104 Lactate Dehydrogenase 488 Total Creatine Kinase 40 Troponin I < 0.01 Total Protein 6.5 Albumin 3.5 Globulin 3.0 Albumin/Globulin Ratio 1.2 Assessment & Plan - Assessment and Plan (Free Text) Assessment: 88 yo M with PMH CAD s/p CABG (2013), 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 Plan: Bilateral hip and LE pain with frequent falls -lumbosacral xrays pending -morphine, percocet, motrin for pain control as needed -Gabapentin -lidoderm patch -Physical therapy evaluation and treatment -fall precautions HTN -Norvasc 5mg po daily -Cozaar 75mg po daily DM -ISS- low dose -carb consistent diet Chronic anemia -Asymptomatic; Hemodynamically stable -continue to monitor Hx Prostate CA s/p cystoscopy with laser vaporization of prostate, -continue outpatient followup at [place] -Tamsulosin 0.4mg -continue prednisone 5mg -home zitiga Hx CAD s/p CABG -ASA 81mg daily -Lipitor 20mg po HS PPx Lovenox SC Protonix Case management referral for possible shelter rehab/usp placement as previous short term rehab has failed <Flo Saavedra - Last Filed: 07/02/18 13:41> Results - Vital Signs Recent Vital Signs: Last Vital Signs Temp 98.1 F 07/02/18 11:15 Pulse 74 07/02/18 11:15 Resp 18 07/02/18 11:15 BP 162/70 H 07/02/18 11:15 Pulse Ox 100 07/02/18 11:15 - Labs Result Diagrams: 07/02/18 09:00 07/02/18 09:00 Labs: Laboratory Results - last 24 hr 07/02/18 07/02/18 07/02/18 09:00 09:00 12:30 WBC 10.5 RBC 2.71 L Hgb 8.3 L Hct 26.2 L MCV 96.7 D MCH 30.6 MCHC 31.7 RDW 15.5 H Plt Count 210 MPV 9.4 Gran % 87.1 H Lymph % (Auto) 6.5 L [place] % (Auto) 3.8 Eos % (Auto) 2.2 Baso % (Auto) 0.4 Gran # 9.13 H Lymph # (Auto) 0.7 L [place] # (Auto) 0.4 Eos # (Auto) 0.2 Baso # (Auto) 0.04 Sodium 140 Potassium 4.7 Chloride 106 Carbon Dioxide 29 Anion Gap 10 BUN 34 H Creatinine 1.2 Est GFR ( Amer) > 60 Est GFR (Non-Af Amer) 57 POC Glucose (mg/dL) 250 H Random Glucose 238 H Calcium 9.0 Magnesium 1.9 Total Bilirubin 0.4 AST 24 ALT 23 Alkaline Phosphatase 104 Lactate Dehydrogenase 488 Total Creatine Kinase 40 Troponin I < 0.01 Total Protein 6.5 Albumin 3.5 Globulin 3.0 Albumin/Globulin Ratio 1.2 Attending/Attestation - Attestation I have personally seen and examined this patient.: Yes I have fully participated in the care of the patient.: Yes I have reviewed all pertinent clinical information: Yes Notes (Text): 07/02/18 13:37 Medical record note made by the resident after discussion with my direction and input after the patient was personally seen and examined by me. I have reviewed the chart and agree that the record accurately reflects by personal performance of the history, physical exam, data review, and medical decision-making, in the course for the patient. I have also personally directed the plan of care. 88 year old male patient with PMH CAD, SP CABG (2013), prostate cancer diagnosed in 10/17 with metastasis to the lumbar spine s/p palliative RT and is on Zytiga and oral Prednisone followed his oncologist at [facility] Dr. Vieira is admitted with H/O intractable lower back pain /10 .Pain is radiating down his right lower leg, exacerbated with movement, no stool/urine incontinence, numbness or tingling of the lower extremities..There is H/O multiple fall at home since his discharge from [facility]. We will get Hip X ray, start patient on pain medications . We will get Physical therapy evaluation. Management plan was discussed in detail with patient. Education was provided.
[2018-07-02] MEDS ORDERED: ABIRATERONE PO SCH ×2 (10:00→10:34)
[2018-07-02] MEDS ORDERED: Oxycodone/Acetaminophen 5/325 mg Tab PO PRN (10:39)
[2018-07-02] MEDS ORDERED: Morphine 2 mg/ml ISec IVP PRN (10:40)
[2018-07-02] MEDS: Enoxaparin 40 mg Syringe SC SCH (13:07)
[2018-07-02] MEDS: Lidocaine 5% Patch TD SCH (13:07)
--- NOTE | 2018-07-02 14:02 | RAD ---
Date of service: 07/02/2018 HISTORY: admit COMPARISON: Comparison chest dated the 10/11/2017. FINDINGS: LUNGS: Minor bibasilar atelectasis PLEURA: No significant pleural effusion identified, no pneumothorax apparent. CARDIOVASCULAR: No aortic atherosclerotic calcification present. Sternotomy wires and CABG clips again noted. Heart size is within upper limits of normal/borderline enlarged No pulmonary vascular congestion. OSSEOUS STRUCTURES: No significant abnormalities. VISUALIZED UPPER ABDOMEN: Normal. OTHER FINDINGS: None. IMPRESSION: Minor bibasilar atelectasis..
[2018-07-02] MEDS: Insulin Reg-LOW-Coverage SC SCH ×3 (14:10→21:24)
[2018-07-02] MEDS ORDERED: Influenza Vaccine 60 mcg/0.5 mL SYR (4YR UP) IM ONE (14:50)
--- NOTE | 2018-07-02 15:23 | RAD ---
Date of service: 07/02/2018 PROCEDURE: Radiographs of the Lumbar Spine. HISTORY: Pain COMPARISON: No prior. FINDINGS: BONES: No acute compression fractures no retropulsed fragments. Vertebral bodies exhibit normal stature. Minor chronic anterior stature loss of the T12 segment DISC SPACES: Moderate-significant multilevel degenerative spondylosis. Changes most notably affect the L3-L4 and L5-5 S1 levels with disc space narrowing former more so than latter, endplate eburnation and anterolateral osteophyte formation. Small posterior osteophyte formation present. The facets are quite hypertrophic L5-S1 through the L2-L3 levels in decreasing order of severity. OTHER FINDINGS: None. . IMPRESSION: No acute fractures. Moderate to significant multilevel degenerative spondylosis as described above
--- NOTE | 2018-07-02 18:28 | CARD ---
APPROVED REPORT Date of service: 07/02/2018 EKG Measurement Heart [id number] <Conclusion> Sinus rhythm with marked sinus arrhythmia Nonspecific T wave abnormality Abnormal ECG
[2018-07-02] MEDS ORDERED: Latanoprost 2.5 ml Opht Soln OU SCH (22:00)
[2018-07-03] MEDS: Pantoprazole 40 mg EC Tab PO SCH (05:36)
[2018-07-03 06:53] LABS: BASO # 0.02 K/mm3 (0.0-2.0); BASO % 0.3 % (0.0-3.0); EOS # 0.3 (0.0-0.7); EOS % 3.8 % (1.5-5.0); GRAN # 4.92 (1.4-6.5); GRAN % 73.8 % (50.0-68.0); HEMOGLOBIN 7.9 g/dL (14.0-18.0); LYMPH % 14.7 % (22.0-35.0); MEAN CELL VOLUME 93.1 fl (80.0-105.0); MEAN CORPUSCULAR HEMOGLOBIN 30.2 pg (25.0-35.0); MEAN CORPUSCULAR HGB CONC 32.4 g/dl (31.0-37.0); MEAN PLATELET VOLUME 8.6 fl (7.0-11.0); MONO # 0.5 (0.1-0.6); MONO % 7.4 % (1.0-6.0); RBC 2.62 10^6/uL (3.5-6.1); WHITE BLOOD COUNT 6.7 10^3/uL (4.5-11.0)
[2018-07-03 07:06] LABS: ALB/GLOB RATIO 1.1 (1.1-1.8); ALBUMIN 3.1 g/dL (3.0-4.8); CALCIUM 8.7 mg/dL (8.4-10.5)
[2018-07-03] MEDS: Insulin Reg-LOW-Coverage SC SCH ×3 (07:38→16:57)
[2018-07-03] MEDS: Enoxaparin 40 mg Syringe SC SCH (10:36)
[2018-07-03] MEDS: Lidocaine 5% Patch TD SCH (10:36)
[2018-07-03 12:02] LABS: BASO # 0.03 K/mm3 (0.0-2.0); BASO % 0.5 % (0.0-3.0); EOS # 0.3 (0.0-0.7); EOS % 4.7 % (1.5-5.0); GRAN # 4.82 (1.4-6.5); GRAN % 72.2 % (50.0-68.0); HEMOGLOBIN 8.3 g/dL (14.0-18.0); LYMPH % 15.5 % (22.0-35.0); MEAN CELL VOLUME 94.1 fl (80.0-105.0); MEAN CORPUSCULAR HEMOGLOBIN 30.6 pg (25.0-35.0); MEAN CORPUSCULAR HGB CONC 32.5 g/dl (31.0-37.0); MEAN PLATELET VOLUME 8.8 fl (7.0-11.0); MONO # 0.5 (0.1-0.6); MONO % 7.1 % (1.0-6.0); RBC 2.71 10^6/uL (3.5-6.1); RED CELL DISTRIBUTION WIDTH 15.2 % (11.5-14.5); WHITE BLOOD COUNT 6.7 10^3/uL (4.5-11.0)
[2018-07-03 13:45] LABS: URINE BILIRUBIN NEGATIVE (NEGATIVE); URINE BLOOD TRACE-LYSED (NEGATIVE); URINE GLUCOSE (UA) NEGATIVE (NEGATIVE); URINE LEUKOCYTE ESTERASE TRACE Leu/uL (NEGATIVE); URINE PROTEIN 30 mg/dL (<30 mg/dL); URINE UROBILINOGEN 0.2 E.U./dL (<1 E.U./dL)
[2018-07-03 13:50] LABS: URINE APPEARANCE CLEAR (CLEAR); URINE COLOR YELLOW (YELLOW)
--- NOTE | 2018-07-03 14:37 | CP.PCM.PN ---
Subjective - Date & Time of Evaluation Date of Evaluation: 07/03/18 Time of Evaluation: 09:30 - Subjective Subjective: Angel Mccrary, PGY-1 Progress Note for Hospitalist Service Patient seen and evaluated at bedside. No acute complaints reported overnight. No falls reported since admission. Reports pain is controlled after getting Percocet medication. Denies chest pain, palpitations, shortness of breath, dizziness, headaches. Objective - Vital Signs/Intake and Output Vital Signs (last 24 hours): Temp Pulse Resp BP Pulse Ox 99 F 70 20 148/62 97 07/03/18 07:00 07/03/18 10:37 07/03/18 07:00 07/03/18 10:37 07/03/18 07:00 Intake and Output: 07/03/18 07/03/18 06:59 18:59 Intake Total 540 Output Total 300 Balance 240 - Medications Medications: Current Medications Amlodipine Besylate (Norvasc) 5 mg PO DAILY [facility] Last Admin: 07/03/18 10:37 Dose: 5 mg Aspirin (Ecotrin) 81 mg PO DAILY [facility] Last Admin: 07/03/18 10:39 Dose: 81 mg Atorvastatin Calcium (Lipitor) 20 mg PO QPM [facility] Last Admin: 07/02/18 16:59 Dose: 20 mg Enoxaparin Sodium (Lovenox) 40 mg SC DAILY [facility]; Protocol Last Admin: 07/03/18 10:36 Dose: 40 mg Gabapentin (Neurontin) 300 mg PO Q8 [facility]; Protocol Last Admin: 07/03/18 05:35 Dose: 300 mg Ibuprofen (Motrin Tab) 600 mg PO Q6H PRN PRN Reason: Pain, Mild (1-3) Last Admin: 07/03/18 10:38 Dose: 600 mg Insulin Human Regular (Humulin R Low) 0 units SC ACHS [facility]; Protocol Last Admin: 07/03/18 07:38 Dose: Not Given Lidocaine (Lidoderm) 1 ea TD DAILY [facility] Last Admin: 07/03/18 10:36 Dose: 1 ea Losartan Potassium (Cozaar) 50 mg PO DAILY [facility] Last Admin: 07/03/18 10:37 Dose: 50 mg Morphine Sulfate (Morphine) 1 mg IVP Q4H PRN PRN Reason: Pain, severe (8-10) Last Admin: 07/02/18 21:06 Dose: 1 mg Zytiga 250mg 2 tab PO BID [facility] Last Admin: 07/03/18 05:36 Dose: 2 tab Oxycodone/Acetaminophen (Percocet 5/325 Mg Tab) 1 tab PO Q6H PRN PRN Reason: Pain, moderate (4-7) Stop: 07/05/18 10:40 Last Admin: 07/03/18 05:39 Dose: 1 tab Pantoprazole Sodium (Protonix Ec Tab) 40 mg PO 0600 [facility] Last Admin: 07/03/18 05:36 Dose: 40 mg Prednisone (Prednisone Tab) 5 mg PO DAILY [facility] Last Admin: 07/03/18 10:37 Dose: 5 mg Tamsulosin HCl (Flomax) 0.4 mg PO BID [facility] Last Admin: 07/03/18 10:37 Dose: 0.4 mg - Labs Labs: 07/03/18 12:00 07/03/18 06:30 - Additional Findings Additional findings: Appears: Non-toxic, No Acute Distress - Head Exam Head Exam: ATRAUMATIC, NORMAL INSPECTION, NORMOCEPHALIC - Eye Exam Eye Exam: EOMI, Normal appearance, PERRL Pupil Exam: NORMAL ACCOMODATION - ENT Exam ENT Exam: Mucous Membranes Moist, Normal Exam - Neck Exam Neck exam: Positive for: Normal Inspection - Respiratory Exam Respiratory Exam: Clear to Auscultation Bilateral, NORMAL BREATHING PATTERN - Cardiovascular Exam Cardiovascular Exam: REGULAR RHYTHM, +S1, +S2 - GI/Abdominal Exam GI & Abdominal Exam: Normal Bowel Sounds, Soft. absent: Tenderness - Extremities Exam Extremities exam: Positive for: normal inspection, pedal pulses present. Negative for: calf tenderness, joint swelling, pedal edema Additional comments: sensory and motor strength intact bilaterally in lower extremities. 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 Plan: Bilateral hip and LE pain with frequent falls -lumbosacral xrays - no acute fractures. Degenerative spondylosis noted. -morphine, percocet, motrin for pain control as needed -Gabapentin -lidoderm patch -Physical therapy recs - [facility] vs [facility] -fall precautions -f/u Vit D level HTN -Norvasc 5mg po daily -Cozaar 75mg po daily DM -ISS- low dose -carb consistent diet Chronic anemia -Asymptomatic; Hemodynamically stable - stable at 8.3 today -continue to monitor Hx Prostate CA s/p cystoscopy with laser vaporization of prostate, -continue outpatient followup at [place] -Tamsulosin 0.4mg -continue prednisone 5mg -home zitiga Hx CAD s/p CABG -ASA 81mg daily -Lipitor 20mg po HS PPx Lovenox SC Protonix Dispo: Case management referral for possible correction rehab/alf placement as previous short term rehab has failed Patient seen, case reviewed and plan approved by Dr. Saavedra. Angel Mccrary, PGY-1
[2018-07-03] MEDS: Latanoprost 2.5 ml Opht Soln OU SCH (21:27)
[2018-07-04] MEDS: Insulin Reg-LOW-Coverage SC SCH ×5 (02:27→23:43)
[2018-07-04] MEDS: Pantoprazole 40 mg EC Tab PO SCH (05:44)
[2018-07-04 06:43] LABS: BASO # 0.02 K/mm3 (0.0-2.0); BASO % 0.3 % (0.0-3.0); EOS # 0.2 (0.0-0.7); EOS % 3.8 % (1.5-5.0); GRAN # 4.73 (1.4-6.5); GRAN % 74.3 % (50.0-68.0); HEMOGLOBIN 7.8 g/dL (14.0-18.0); LYMPH % 16.4 % (22.0-35.0); MEAN CORPUSCULAR HEMOGLOBIN 30.5 pg (25.0-35.0); MEAN CORPUSCULAR HGB CONC 33.5 g/dl (31.0-37.0); MEAN PLATELET VOLUME 8.7 fl (7.0-11.0); MONO # 0.3 (0.1-0.6); MONO % 5.2 % (1.0-6.0); RBC 2.56 10^6/uL (3.5-6.1); RED CELL DISTRIBUTION WIDTH 14.7 % (11.5-14.5); WHITE BLOOD COUNT 6.4 10^3/uL (4.5-11.0)
[2018-07-04 07:08] LABS: ALB/GLOB RATIO 1.1 (1.1-1.8); CALCIUM 8.5 mg/dL (8.4-10.5)
[2018-07-04 08:30] VITALS: RESP 18
--- NOTE | 2018-07-04 09:13 | CP.PCM.PN ---
<Angel Mccrary - Last Filed: 07/04/18 15:18> Subjective - Date & Time of Evaluation Date of Evaluation: 07/04/18 Time of Evaluation: 08:00 - Subjective Subjective: Angel Mccrary PGY-1 Progress Note for Hospitalist Service Patient seen and evaluated at bedside. No acute complaints reported overnight. No falls reported since admission. Reports pain is controlled after getting Percocet medication and Lidocaine patch. Denies chest pain, palpitations, shortness of breath, dizziness, headaches. Objective - Vital Signs/Intake and Output Vital Signs (last 24 hours): Temp Pulse Resp BP Pulse Ox 97.9 F 66 18 134/61 97 07/04/18 06:00 07/04/18 06:00 07/04/18 06:00 07/04/18 06:00 07/04/18 06:00 Intake and Output: 07/04/18 07/04/18 06:59 18:59 Intake Total 375 Output Total 175 Balance 200 - Medications Medications: Current Medications Amlodipine Besylate (Norvasc) 5 mg PO DAILY [facility] Last Admin: 07/03/18 10:37 Dose: 5 mg Aspirin (Ecotrin) 81 mg PO DAILY [facility] Last Admin: 07/03/18 10:39 Dose: 81 mg Atorvastatin Calcium (Lipitor) 20 mg PO QPM [facility] Last Admin: 07/03/18 18:25 Dose: 20 mg Enoxaparin Sodium (Lovenox) 40 mg SC DAILY [facility]; Protocol Last Admin: 07/03/18 10:36 Dose: 40 mg Gabapentin (Neurontin) 300 mg PO Q8 [facility]; Protocol Last Admin: 07/04/18 05:44 Dose: 300 mg Ibuprofen (Motrin Tab) 600 mg PO Q6H PRN PRN Reason: Pain, Mild (1-3) Last Admin: 07/03/18 10:38 Dose: 600 mg Insulin Human Regular (Humulin R Low) 0 units SC ACHS [facility]; Protocol Last Admin: 07/04/18 02:27 Dose: Not Given Latanoprost (Xalatan Opht) 1 ml OU HS [facility] Last Admin: 07/03/18 21:27 Dose: 1 ml Lidocaine (Lidoderm) 1 ea TD DAILY [facility] Last Admin: 07/03/18 10:36 Dose: 1 ea Losartan Potassium (Cozaar) 50 mg PO DAILY [facility] Last Admin: 07/03/18 10:37 Dose: 50 mg Morphine Sulfate (Morphine) 1 mg IVP Q4H PRN PRN Reason: Pain, severe (8-10) Last Admin: 07/02/18 21:06 Dose: 1 mg Zytiga 250mg 2 tab PO BID [facility] Last Admin: 07/04/18 05:44 Dose: 2 tab Oxycodone/Acetaminophen (Percocet 5/325 Mg Tab) 1 tab PO Q6H PRN PRN Reason: Pain, moderate (4-7) Stop: 07/05/18 10:40 Last Admin: 07/03/18 05:39 Dose: 1 tab Pantoprazole Sodium (Protonix Ec Tab) 40 mg PO 0600 [facility] Last Admin: 07/04/18 05:44 Dose: 40 mg Prednisone (Prednisone Tab) 5 mg PO DAILY [facility] Last Admin: 07/03/18 10:37 Dose: 5 mg Tamsulosin HCl (Flomax) 0.4 mg PO BID [facility] Last Admin: 07/03/18 18:25 Dose: 0.4 mg - Labs Labs: 07/04/18 06:20 07/04/18 06:20 - Additional Findings Additional findings: Appears: Non-toxic, No Acute Distress - Head Exam Head Exam: ATRAUMATIC, NORMAL INSPECTION, NORMOCEPHALIC - Eye Exam Eye Exam: EOMI, Normal appearance, PERRL Pupil Exam: NORMAL ACCOMODATION - ENT Exam ENT Exam: Mucous Membranes Moist, Normal Exam - Neck Exam Neck exam: Positive for: Normal Inspection - Respiratory Exam Respiratory Exam: Clear to Auscultation Bilateral, NORMAL BREATHING PATTERN - Cardiovascular Exam Cardiovascular Exam: REGULAR RHYTHM, +S1, +S2 - GI/Abdominal Exam GI & Abdominal Exam: Normal Bowel Sounds, Soft. absent: Tenderness - Extremities Exam Extremities exam: Positive for: normal inspection, pedal pulses present. Negative for: calf tenderness, joint swelling, pedal edema Additional comments: sensory and motor strength intact bilaterally in lower extremities. 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 Plan: Bilateral hip and LE pain with frequent falls -lumbosacral xrays - no acute fractures. Degenerative spondylosis noted. -morphine, percocet, motrin for pain control as needed -Gabapentin -lidoderm patch -Physical therapy recs - [facility] vs [facility] -fall precautions -f/u Vit D level HTN -Norvasc 5mg po daily -Cozaar 75mg po daily DM -ISS- low dose -carb consistent diet Chronic anemia -Asymptomatic; Hemodynamically stable - stable at 8.3 today -continue to monitor Hx Prostate CA s/p cystoscopy with laser vaporization of prostate, -continue outpatient followup at [place] -Tamsulosin 0.4mg -continue prednisone 5mg -home zitiga Hx CAD s/p CABG -ASA 81mg daily -Lipitor 20mg po HS PPx Lovenox SC Protonix Dispo: Case management referral for possible senior living rehab/jail placement as previous short term rehab has failed PT: [facility] vs [facility] Patient seen, case reviewed and plan approved by Dr. Marcos. Angel Mccrary, PGY-1 <Tanvir Marcos - Last Filed: 07/04/18 18:09> Objective - Vital Signs/Intake and Output Vital Signs (last 24 hours): Temp Pulse Resp BP Pulse Ox 98.6 F 78 18 138/61 98 07/04/18 14:00 07/04/18 14:00 07/04/18 14:00 07/04/18 14:00 07/04/18 14:00 Intake and Output: 07/04/18 07/04/18 06:59 18:59 Intake Total 375 Output Total 175 Balance 200 - Medications Medications: Current Medications Amlodipine Besylate (Norvasc) 5 mg PO DAILY [facility] Last Admin: 07/04/18 09:28 Dose: 5 mg Aspirin (Ecotrin) 81 mg PO DAILY [facility] Last Admin: 07/04/18 09:27 Dose: 81 mg Atorvastatin Calcium (Lipitor) 20 mg PO QPM [facility] Last Admin: 07/03/18 18:25 Dose: 20 mg Enoxaparin Sodium (Lovenox) 40 mg SC DAILY [facility]; Protocol Last Admin: 07/04/18 09:27 Dose: 40 mg Gabapentin (Neurontin) 300 mg PO Q8 [facility]; Protocol Last Admin: 07/04/18 14:35 Dose: 300 mg Ibuprofen (Motrin Tab) 600 mg PO Q6H PRN PRN Reason: Pain, Mild (1-3) Last Admin: 07/03/18 10:38 Dose: 600 mg Insulin Human Regular (Humulin R Low) 0 units SC ACHS [facility]; Protocol Last Admin: 07/04/18 11:55 Dose: 2 unit Latanoprost (Xalatan Opht) 1 ml OU HS [facility] Last Admin: 07/03/18 21:27 Dose: 1 ml Lidocaine (Lidoderm) 1 ea TD DAILY [facility] Last Admin: 07/04/18 09:28 Dose: 1 ea Losartan Potassium (Cozaar) 50 mg PO DAILY [facility] Last Admin: 07/04/18 09:27 Dose: 50 mg Morphine Sulfate (Morphine) 1 mg IVP Q4H PRN PRN Reason: Pain, severe (8-10) Last Admin: 07/02/18 21:06 Dose: 1 mg Zytiga 250mg 2 tab PO BID [facility] Last Admin: 07/04/18 09:30 Dose: Not Given Oxycodone/Acetaminophen (Percocet 5/325 Mg Tab) 1 tab PO Q6H PRN PRN Reason: Pain, moderate (4-7) Stop: 07/05/18 10:40 Last Admin: 07/03/18 05:39 Dose: 1 tab Pantoprazole Sodium (Protonix Ec Tab) 40 mg PO 0600 [facility] Last Admin: 07/04/18 05:44 Dose: 40 mg Prednisone (Prednisone Tab) 5 mg PO DAILY [facility] Last Admin: 07/04/18 09:27 Dose: 5 mg Tamsulosin HCl (Flomax) 0.4 mg PO BID [facility] Last Admin: 07/04/18 09:27 Dose: 0.4 mg - Labs Labs: 07/04/18 06:20 07/04/18 06:20 Attending/Attestation - Attestation I have personally seen and examined this patient.: Yes I have fully participated in the care of the patient.: Yes I have reviewed all pertinent clinical information, including history, physical exam and plan: Yes Notes (Text): 07/04/18 18:05 88 year old male with past medical history of CAD s/p CABG, metastatic prostate cancer s/p radiation, sciatica, and diabetes who presents with low back / hip pain and frequent falls at home. Xrays were negative for acute fracture. He is on morphine / percocet prn and gabapentin. Started also on lidoderm patch. PT evaluation was appreciated; recommended [facility] vs [facility]. Will discuss with caseworker protective services. Continue with home medications for CAD/HTN. Continue to monitor anemia closely. Tanvir Marcos MD Hospitalist.
[2018-07-04] MEDS: Enoxaparin 40 mg Syringe SC SCH (09:27)
[2018-07-04] MEDS: Lidocaine 5% Patch TD SCH (09:28)
[2018-07-04] MEDS: Latanoprost 2.5 ml Opht Soln OU SCH (21:24)
[2018-07-05] MEDS: Pantoprazole 40 mg EC Tab PO SCH (05:06)
[2018-07-05 06:57] LABS: BASO # 0.02 K/mm3 (0.0-2.0); BASO % 0.3 % (0.0-3.0); EOS # 0.2 (0.0-0.7); EOS % 3.5 % (1.5-5.0); GRAN # 5.14 (1.4-6.5); GRAN % 75.7 % (50.0-68.0); HEMOGLOBIN 8.1 g/dL (14.0-18.0); LYMPH # 0.9 (1.2-3.4); LYMPH % 13.4 % (22.0-35.0); MEAN CELL VOLUME 91.4 fl (80.0-105.0); MEAN CORPUSCULAR HEMOGLOBIN 30.5 pg (25.0-35.0); MEAN CORPUSCULAR HGB CONC 33.3 g/dl (31.0-37.0); MEAN PLATELET VOLUME 8.8 fl (7.0-11.0); MONO # 0.5 (0.1-0.6); MONO % 7.1 % (1.0-6.0); RBC 2.66 10^6/uL (3.5-6.1); RED CELL DISTRIBUTION WIDTH 14.8 % (11.5-14.5); WHITE BLOOD COUNT 6.8 10^3/uL (4.5-11.0)
[2018-07-05 07:08] LABS: ALB/GLOB RATIO 1.1 (1.1-1.8); ALBUMIN 3.2 g/dL (3.0-4.8); ALT/SGPT 25 U/L (7-56); AST/SGOT 26 U/L (17-59); BLOOD UREA NITROGEN 42 mg/dL (7-21); CALCIUM 8.7 mg/dL (8.4-10.5); GFR NON-AFRICAN AMERICAN 52
[2018-07-05] MEDS: Insulin Reg-LOW-Coverage SC SCH ×3 (07:42→17:19)
[2018-07-05] MEDS: Enoxaparin 40 mg Syringe SC SCH (09:59)
[2018-07-05] MEDS: Lidocaine 5% Patch TD SCH (10:02)
--- NOTE | 2018-07-05 14:48 | CP.PCM.PN ---
<Angel Mccrary - Last Filed: 07/05/18 14:44> Subjective - Date & Time of Evaluation Date of Evaluation: 07/05/18 Time of Evaluation: 08:00 - Subjective Subjective: Angel Mccrary PGY-1 Progress Note for Hospitalist Service Patient seen and evaluated at bedside. No acute complaints reported overnight. No falls reported since admission. Reports pain is controlled after getting Lidocaine patch. Requests medical marijuana and pain management. Denies chest pain, palpitations, shortness of breath, dizziness, headaches. Objective - Vital Signs/Intake and Output Vital Signs (last 24 hours): Temp Pulse Resp BP Pulse Ox 99.4 F 67 18 142/64 95 07/05/18 07:00 07/05/18 10:02 07/05/18 07:00 07/05/18 10:02 07/05/18 07:00 Intake and Output: 07/05/18 07/05/18 06:59 18:59 Intake Total 120 Balance 120 - Medications Medications: Current Medications Amlodipine Besylate (Norvasc) 5 mg PO DAILY [facility] Last Admin: 07/05/18 10:01 Dose: 5 mg Aspirin (Ecotrin) 81 mg PO DAILY [facility] Last Admin: 07/05/18 10:02 Dose: 81 mg Atorvastatin Calcium (Lipitor) 20 mg PO QPM [facility] Last Admin: 07/04/18 18:05 Dose: 20 mg Enoxaparin Sodium (Lovenox) 40 mg SC DAILY [facility]; Protocol Last Admin: 07/05/18 09:59 Dose: 40 mg Gabapentin (Neurontin) 300 mg PO Q8 [facility]; Protocol Last Admin: 07/05/18 05:06 Dose: 300 mg Ibuprofen (Motrin Tab) 600 mg PO Q6H PRN PRN Reason: Pain, Mild (1-3) Last Admin: 07/05/18 09:59 Dose: 600 mg Insulin Human Regular (Humulin R Low) 0 units SC ACHS [facility]; Protocol Last Admin: 07/05/18 12:02 Dose: 1 unit Latanoprost (Xalatan Opht) 1 ml OU HS [facility] Last Admin: 07/04/18 21:24 Dose: 1 ml Lidocaine (Lidoderm) 1 ea TD DAILY [facility] Last Admin: 07/05/18 10:02 Dose: 1 ea Losartan Potassium (Cozaar) 50 mg PO DAILY [facility] Last Admin: 07/05/18 10:02 Dose: 50 mg Morphine Sulfate (Morphine) 1 mg IVP Q4H PRN PRN Reason: Pain, severe (8-10) Last Admin: 07/02/18 21:06 Dose: 1 mg Zytiga 250mg 2 tab PO BID [facility] Last Admin: 07/05/18 05:06 Dose: 2 tab Pantoprazole Sodium (Protonix Ec Tab) 40 mg PO 0600 [facility] Last Admin: 07/05/18 05:06 Dose: 40 mg Prednisone (Prednisone Tab) 5 mg PO DAILY [facility] Last Admin: 07/05/18 09:59 Dose: 5 mg Tamsulosin HCl (Flomax) 0.4 mg PO BID [facility] Last Admin: 07/05/18 10:02 Dose: 0.4 mg - Labs Labs: 07/05/18 06:30 07/05/18 06:30 - Additional Findings Additional findings: Appears: Non-toxic, No Acute Distress - Head Exam Head Exam: ATRAUMATIC, NORMAL INSPECTION, NORMOCEPHALIC - Eye Exam Eye Exam: EOMI, Normal appearance, PERRL Pupil Exam: NORMAL ACCOMODATION - ENT Exam ENT Exam: Mucous Membranes Moist, Normal Exam - Neck Exam Neck exam: Positive for: Normal Inspection - Respiratory Exam Respiratory Exam: Clear to Auscultation Bilateral, NORMAL BREATHING PATTERN - Cardiovascular Exam Cardiovascular Exam: REGULAR RHYTHM, +S1, +S2 - GI/Abdominal Exam GI & Abdominal Exam: Normal Bowel Sounds, Soft. absent: Tenderness - Extremities Exam Extremities exam: Positive for: normal inspection, pedal pulses present. Negative for: calf tenderness, joint swelling, pedal edema Additional comments: sensory and motor strength intact bilaterally in lower extremities. 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 Plan: Bilateral hip and LE pain with frequent falls -lumbosacral xrays - no acute fractures. Degenerative spondylosis noted. -morphine, percocet, motrin for pain control as needed -Gabapentin -lidoderm patch -Physical therapy recs - TCU -fall precautions -f/u Vit D level HTN -Norvasc 5mg po daily -Cozaar 75mg po daily DM -ISS- low dose -carb consistent diet Chronic anemia -Asymptomatic; Hemodynamically stable - stable at 8.1 today -continue to monitor Hx Prostate CA s/p cystoscopy with laser vaporization of prostate, -continue outpatient followup at [facility] -Tamsulosin 0.4mg -continue prednisone 5mg -home zitiga Hx CAD s/p CABG -ASA 81mg daily -Lipitor 20mg po HS PPx Lovenox SC Protonix Dispo: Case management f/u for possible TCU admission PT: TCU Patient seen, case reviewed and plan approved by Dr. Marcos. Angel Mccrary, PGY-1 <Tanvir Marcos - Last Filed: 07/05/18 15:54> Objective - Vital Signs/Intake and Output Vital Signs (last 24 hours): Temp Pulse Resp BP Pulse Ox 99.4 F 67 18 142/64 95 07/05/18 07:00 07/05/18 10:02 07/05/18 07:00 07/05/18 10:02 07/05/18 07:00 Intake and Output: 07/05/18 07/05/18 06:59 18:59 Intake Total 120 Balance 120 - Medications Medications: Current Medications Amlodipine Besylate (Norvasc) 5 mg PO DAILY [facility] Last Admin: 07/05/18 10:01 Dose: 5 mg Aspirin (Ecotrin) 81 mg PO DAILY [facility] Last Admin: 07/05/18 10:02 Dose: 81 mg Atorvastatin Calcium (Lipitor) 20 mg PO QPM [facility] Last Admin: 07/04/18 18:05 Dose: 20 mg Enoxaparin Sodium (Lovenox) 40 mg SC DAILY [facility]; Protocol Last Admin: 07/05/18 09:59 Dose: 40 mg Gabapentin (Neurontin) 300 mg PO Q8 [facility]; Protocol Last Admin: 07/05/18 05:06 Dose: 300 mg Ibuprofen (Motrin Tab) 600 mg PO Q6H PRN PRN Reason: Pain, Mild (1-3) Last Admin: 07/05/18 09:59 Dose: 600 mg Insulin Human Regular (Humulin R Low) 0 units SC [facility]; Protocol Last Admin: 07/05/18 12:02 Dose: 1 unit Latanoprost (Xalatan Opht) 1 ml OU HS [facility] Last Admin: 07/04/18 21:24 Dose: 1 ml Lidocaine (Lidoderm) 1 ea TD DAILY [facility] Last Admin: 07/05/18 10:02 Dose: 1 ea Losartan Potassium (Cozaar) 50 mg PO DAILY [facility] Last Admin: 07/05/18 10:02 Dose: 50 mg Morphine Sulfate (Morphine) 1 mg IVP Q4H PRN PRN Reason: Pain, severe (8-10) Last Admin: 07/02/18 21:06 Dose: 1 mg Zytiga 250mg 2 tab PO BID [facility] Last Admin: 07/05/18 05:06 Dose: 2 tab Pantoprazole Sodium (Protonix Ec Tab) 40 mg PO 0600 [facility] Last Admin: 07/05/18 05:06 Dose: 40 mg Prednisone (Prednisone Tab) 5 mg PO DAILY [facility] Last Admin: 07/05/18 09:59 Dose: 5 mg Tamsulosin HCl (Flomax) 0.4 mg PO BID [facility] Last Admin: 07/05/18 10:02 Dose: 0.4 mg - Labs Labs: 07/05/18 06:30 07/05/18 06:30 Attending/Attestation - Attestation I have personally seen and examined this patient.: Yes I have fully participated in the care of the patient.: Yes I have reviewed all pertinent clinical information, including history, physical exam and plan: Yes Notes (Text): 07/05/18 15:53 88 year old male with past medical history of CAD s/p CABG, metastatic prostate cancer s/p radiation, sciatica, and diabetes who presented with low back / hip pain and frequent falls at home. Xrays were negative for acute fracture. He is on morphine / percocet prn and gabapentin. He is also on lidoderm patch. PT evaluation was appreciated; recommended [facility] vs [facility]. Patient does not wish to go to [facility] but [facility] instead. Will discuss with patient case manager / social services designee. Continue with home medications for CAD/HTN. Continue to monitor anemia closely. Tanvir Marcos MD Hospitalist.
[2018-07-05 17:51] VITALS: BP 131/62; PULSE 95; TEMP 98.9; O2SAT 97
--- NOTE | 2018-07-06 06:13 | CP.PCM.DIS ---
<Angel Mccrary - Last Filed: 07/06/18 06:04> Provider - Provider Date of Admission: 07/03/18 13:54 Attending physician: Tanvir Marcos MD Primary care physician: Dr. Moreland Consults: 07/02/18 10:41 Case Management Referral Routine Comment: Physician Instructions: Reason For Exam: Reason for Referral: Discharge Planning 07/02/18 13:59 Nursing Referral for Palliative Care Routine Comment: raine score Physician Instructions: Reason For Exam: eval Social Work Referral Routine Comment: dc plan/ pt needs assistance at home Physician Instructions: Reason For Exam: eval 07/02/18 14:50 Nursing Referral for Wound Care Routine Comment: stage 1 sacrum, scab r elbow Physician Instructions: Reason For Exam: eval 07/04/18 14:15 Case Management Referral Routine Comment: Physician Instructions: Reason For Exam: [facility] Reason for Referral: Discharge Planning 07/05/18 10:07 TCU [Evaluation for TRCU] Routine Comment: Physician Instructions: Reason For Exam: deconditioned Time Spent in preparation of Discharge (in minutes): 35 Hospital Course - Lab Results Lab Results: Micro Results 07/03/18 13:30 Urine,Clean Catch Urine Culture - Final No Growth (<1,000 CFU/ML) Most Recent Lab Values WBC 6.8 10^3/uL (4.5-11.0) 07/05/18 06:30 RBC 2.66 10^6/uL (3.5-6.1) L 07/05/18 06:30 Hgb 8.1 g/dL (14.0-18.0) L 07/05/18 06:30 Hct 24.3 % (42.0-52.0) L 07/05/18 06:30 MCV 91.4 fl (80.0-105.0) 07/05/18 06:30 MCH 30.5 pg (25.0-35.0) 07/05/18 06:30 MCHC 33.3 g/dl (31.0-37.0) 07/05/18 06:30 RDW 14.8 % (11.5-14.5) H 07/05/18 06:30 Plt Count 193 10^3/uL (120.0-450.0) 07/05/18 06:30 MPV 8.8 fl (7.0-11.0) 07/05/18 06:30 Gran % 75.7 % (50.0-68.0) H 07/05/18 06:30 Lymph % (Auto) 13.4 % (22.0-35.0) L 07/05/18 06:30 [place] % (Auto) 7.1 % (1.0-6.0) H 07/05/18 06:30 Eos % (Auto) 3.5 % (1.5-5.0) 07/05/18 06:30 Baso % (Auto) 0.3 % (0.0-3.0) 07/05/18 06:30 Gran # 5.14 (1.4-6.5) 07/05/18 06:30 Lymph # (Auto) 0.9 (1.2-3.4) L 07/05/18 06:30 [place] # (Auto) 0.5 (0.1-0.6) 07/05/18 06:30 Eos # (Auto) 0.2 (0.0-0.7) 07/05/18 06:30 Baso # (Auto) 0.02 K/mm3 (0.0-2.0) 07/05/18 06:30 Sodium 139 mmol/L (132-148) 07/05/18 06:30 Potassium 3.8 mmol/L (3.6-5.0) 07/05/18 06:30 Chloride 105 mmol/L (98-107) 07/05/18 06:30 Carbon Dioxide 29 mmol/L (21-33) 07/05/18 06:30 Anion Gap 8 (10-20) L 07/05/18 06:30 BUN 42 mg/dL (7-21) H 07/05/18 06:30 Creatinine 1.3 mg/dl (0.8-1.5) 07/05/18 06:30 Est GFR ( Amer) > 60 07/05/18 06:30 Est GFR (Non-Af Amer) 52 07/05/18 06:30 POC Glucose (mg/dL) 126 mg/dL (65-110) H 07/05/18 15:58 Random Glucose 103 mg/dL (70-110) 07/05/18 06:30 Calcium 8.7 mg/dL (8.4-10.5) 07/05/18 06:30 Magnesium 1.9 mg/dL (1.7-2.2) 07/02/18 09:00 Total Bilirubin 0.3 mg/dL (0.2-1.3) 07/05/18 06:30 AST 26 U/L (17-59) 07/05/18 06:30 ALT 25 U/L (7-56) 07/05/18 06:30 Alkaline Phosphatase 83 U/L (38-126) 07/05/18 06:30 Lactate Dehydrogenase 488 U/L (333-699) 07/02/18 09:00 Total Creatine Kinase 40 U/L (35-230) 07/02/18 09:00 Troponin I < 0.01 ng/mL 07/02/18 09:00 Total Protein 6.0 g/dL (5.8-8.3) 07/05/18 06:30 Albumin 3.2 g/dL (3.0-4.8) 07/05/18 06:30 Globulin 2.9 gm/dL 07/05/18 06:30 Albumin/Globulin Ratio 1.1 (1.1-1.8) 07/05/18 06:30 25-OH Vitamin D Total 51 ng/mL (30-100) 07/04/18 05:00 Urine Color Yellow (YELLOW) 07/03/18 13:30 Urine Appearance Clear (CLEAR) 07/03/18 13:30 Urine pH 6.0 (4.7-8.0) 07/03/18 13:30 Ur Specific [place] 1.025 (1.005-1.035) 07/03/18 13:30 Urine Protein 30 mg/dL (<30 mg/dL) H 07/03/18 13:30 Urine Glucose (UA) Negative mg/dL (NEGATIVE) 07/03/18 13:30 Urine Ketones Negative mg/dL (NEGATIVE) 07/03/18 13:30 Urine Blood Trace-lysed (NEGATIVE) H 07/03/18 13:30 Urine Nitrate Negative (NEGATIVE) 07/03/18 13:30 Urine Bilirubin Negative (NEGATIVE) 07/03/18 13:30 Urine Urobilinogen 0.2 E.U./dL (<1 E.U./dL) 07/03/18 13:30 Ur Leukocyte Esterase Trace [place]/uL (NEGATIVE) H 07/03/18 13:30 Urine RBC 5 - 10 /hpf (0-2) 07/03/18 13:30 Urine WBC 2 - 5 /hpf (0-6) 07/03/18 13:30 Ur Epithelial Cells 3 - 4 /hpf (0-5) 07/03/18 13:30 - Hospital Course Hospital Course: Angel Mccrary, PGY-1 Discharge Summary for Hospitalist Service Patient is a 88 yo M with PMH CAD s/p CABG (2013), prostate cancer diagnosed in 10/17 with metastasis to the lumbar spine (s/p laser vaporization and previously on radiation to lumbar spine), sciatica with bulging discs, DM2, CKD 3, and falls, C/O frequent falls. At baseline, pain mostly has pain in R hip and buttock radiating to leg, and sees an outpatient pain management doctor. He has been falling often. Patient failed outpatient pain control and therapy. Bilateral hip pain was reported so lumbosacral fractures were performed which showed no acute fractures. His HTN and DM were controlled. Patient was fgound to have anbemia with Hgb around 8, which remained stable without acute blood loss. Pt having difficulty ambulating due to LBP and limited LE power while working with PE. PT recommended TCU. TCU eval accepted patient for further physical therapy and strengthening. Patient is stable for discharge to TCU as per Dr. Marcos. Patient will continue pain medication management as well as other medications as reconciled. Patient will continue with PT in TCU. Patient will be discharged with same meds as in TCU and needs further followup with oncologist for treatment of his cancer. Written above is a shortened synopsis of patient's current hospital admission. For full report, please refer to EMR. Patient seen, case reviewed and plan approved by Dr. Marcos. Discharge Exam - Head Exam Head Exam: ATRAUMATIC, NORMAL INSPECTION, NORMOCEPHALIC - Additional Findings Additional findings: Appears: Non-toxic, No Acute Distress - Head Exam Head Exam: ATRAUMATIC, NORMAL INSPECTION, NORMOCEPHALIC - Eye Exam Eye Exam: EOMI, Normal appearance, PERRL Pupil Exam: NORMAL ACCOMODATION - ENT Exam ENT Exam: Mucous Membranes Moist, Normal Exam - Neck Exam Neck exam: Positive for: Normal Inspection - Respiratory Exam Respiratory Exam: Clear to Auscultation Bilateral, NORMAL BREATHING PATTERN - Cardiovascular Exam Cardiovascular Exam: REGULAR RHYTHM, +S1, +S2 - GI/Abdominal Exam GI & Abdominal Exam: Normal Bowel Sounds, Soft. absent: Tenderness - Extremities Exam Extremities exam: Positive for: normal inspection, pedal pulses present. Negative for: calf tenderness, joint swelling, pedal edema Additional comments: sensory and motor strength intact bilaterally in lower extremities. - Neurological Exam Neurological exam: Alert, CN II-XII Intact, Oriented x3 Discharge Plan - Follow Up Plan Condition: FAIR Disposition: TRANSF TO SNF Instructions: Preventing Falls in the Older Adult, Low Back Pain (DC), Back Exercises, Managing Pain When You Have Cancer, Prostate Cancer (DC), Sciatica Exercises, Back Flexion Strengthening Exercises Additional Instructions: Continue same meds and same orders. Discharge to TCU. <Tanvir Marcos - Last Filed: 07/06/18 08:05> Provider - Provider Date of Admission: 07/03/18 13:54 Attending physician: Tanvir Marcos MD Consults: 07/02/18 10:41 Case Management Referral Routine Comment: Physician Instructions: Reason For Exam: Reason for Referral: Discharge Planning 07/02/18 13:59 Nursing Referral for Palliative Care Routine Comment: raine score Physician Instructions: Reason For Exam: eval Social Work Referral Routine Comment: dc plan/ pt needs assistance at home Physician Instructions: Reason For Exam: eval 07/02/18 14:50 Nursing Referral for Wound Care Routine Comment: stage 1 sacrum, scab r elbow Physician Instructions: Reason For Exam: eval 07/04/18 14:15 Case Management Referral Routine Comment: Physician Instructions: Reason For Exam: [facility] Reason for Referral: Discharge Planning 07/05/18 10:07 TCU [Evaluation for TRCU] Routine Comment: Physician Instructions: Reason For Exam: deconditioned Hospital Course - Lab Results Lab Results: Micro Results 07/03/18 13:30 Urine,Clean Catch Urine Culture - Final No Growth (<1,000 CFU/ML) Most Recent Lab Values WBC 6.8 10^3/uL (4.5-11.0) 07/05/18 06:30 RBC 2.66 10^6/uL (3.5-6.1) L 07/05/18 06:30 Hgb 8.1 g/dL (14.0-18.0) L 07/05/18 06:30 Hct 24.3 % (42.0-52.0) L 07/05/18 06:30 MCV 91.4 fl (80.0-105.0) 07/05/18 06:30 MCH 30.5 pg (25.0-35.0) 07/05/18 06:30 MCHC 33.3 g/dl (31.0-37.0) 07/05/18 06:30 RDW 14.8 % (11.5-14.5) H 07/05/18 06:30 Plt Count 193 10^3/uL (120.0-450.0) 07/05/18 06:30 MPV 8.8 fl (7.0-11.0) 07/05/18 06:30 Gran % 75.7 % (50.0-68.0) H 07/05/18 06:30 Lymph % (Auto) 13.4 % (22.0-35.0) L 07/05/18 06:30 [place] % (Auto) 7.1 % (1.0-6.0) H 07/05/18 06:30 Eos % (Auto) 3.5 % (1.5-5.0) 07/05/18 06:30 Baso % (Auto) 0.3 % (0.0-3.0) 07/05/18 06:30 Gran # 5.14 (1.4-6.5) 07/05/18 06:30 Lymph # (Auto) 0.9 (1.2-3.4) L 07/05/18 06:30 [place] # (Auto) 0.5 (0.1-0.6) 07/05/18 06:30 Eos # (Auto) 0.2 (0.0-0.7) 07/05/18 06:30 Baso # (Auto) 0.02 K/mm3 (0.0-2.0) 07/05/18 06:30 Sodium 139 mmol/L (132-148) 07/05/18 06:30 Potassium 3.8 mmol/L (3.6-5.0) 07/05/18 06:30 Chloride 105 mmol/L (98-107) 07/05/18 06:30 Carbon Dioxide 29 mmol/L (21-33) 07/05/18 06:30 Anion Gap 8 (10-20) L 07/05/18 06:30 BUN 42 mg/dL (7-21) H 07/05/18 06:30 Creatinine 1.3 mg/dl (0.8-1.5) 12 06:30 Est GFR ( Amer) > 60 07/05/18 06:30 Est GFR (Non-Af Amer) 52 07/05/18 06:30 POC Glucose (mg/dL) 126 mg/dL (65-110) H 07/05/18 15:58 Random Glucose 103 mg/dL (70-110) 07/05/18 06:30 Calcium 8.7 mg/dL (8.4-10.5) 07/05/18 06:30 Magnesium 1.9 mg/dL (1.7-2.2) 07/02/18 09:00 Total Bilirubin 0.3 mg/dL (0.2-1.3) 07/05/18 06:30 AST 26 U/L (17-59) 07/05/18 06:30 ALT 25 U/L (7-56) 07/05/18 06:30 Alkaline Phosphatase 83 U/L (38-126) 07/05/18 06:30 Lactate Dehydrogenase 488 U/L (333-699) 07/02/18 09:00 Total Creatine Kinase 40 U/L (35-230) 07/02/18 09:00 Troponin I < 0.01 ng/mL 07/02/18 09:00 Total Protein 6.0 g/dL (5.8-8.3) 07/05/18 06:30 Albumin 3.2 g/dL (3.0-4.8) 07/05/18 06:30 Globulin 2.9 gm/dL 07/05/18 06:30 Albumin/Globulin Ratio 1.1 (1.1-1.8) 07/05/18 06:30 25-OH Vitamin D Total 51 ng/mL (30-100) 07/04/18 05:00 Urine Color Yellow (YELLOW) 07/03/18 13:30 Urine Appearance Clear (CLEAR) 07/03/18 13:30 Urine pH 6.0 (4.7-8.0) 07/03/18 13:30 Ur Specific [place] 1.025 (1.005-1.035) 07/03/18 13:30 Urine Protein 30 mg/dL (<30 mg/dL) H 07/03/18 13:30 Urine Glucose (UA) Negative mg/dL (NEGATIVE) 07/03/18 13:30 Urine Ketones Negative mg/dL (NEGATIVE) 07/03/18 13:30 Urine Blood Trace-lysed (NEGATIVE) H 07/03/18 13:30 Urine Nitrate Negative (NEGATIVE) 07/03/18 13:30 Urine Bilirubin Negative (NEGATIVE) 07/03/18 13:30 Urine Urobilinogen 0.2 E.U./dL (<1 E.U./dL) 07/03/18 13:30 Ur Leukocyte Esterase Trace [place]/uL (NEGATIVE) H 07/03/18 13:30 Urine RBC 5 - 10 /hpf (0-2) 07/03/18 13:30 Urine WBC 2 - 5 /hpf (0-6) 07/03/18 13:30 Ur Epithelial Cells 3 - 4 /hpf (0-5) 07/03/18 13:30 Attending/Attestation - Attestation I have personally seen and examined this patient.: Yes I have fully participated in the care of the patient.: Yes I have reviewed all pertinent clinical information, including history, physical exam and plan: Yes
== END 2018-07-05 21:46 | DRG 552 ==
LOC: ED 08:22 → ERH 09:43 → 5RNO 11:44 → OBSVTOIN 07-03 13:54
PROVIDERS: ADMIT Internal Medicine; ATTEND Internal Medicine
DX: M54.40 Lumbago with sciatica, unspecified side (principal); C79.51 Secondary malignant neoplasm of bone; C61 Malignant neoplasm of prostate; D64.9 Anemia, unspecified; E11.22 Type 2 diabetes mellitus with diabetic chronic kidney disease; E11.65 Type 2 diabetes mellitus with hyperglycemia; E86.0 Dehydration; G89.29 Other chronic pain; I12.9 Hypertensive chronic kidney disease with stage 1 through stage 4 chronic kidney disease, or unspecified chronic kidney disease; I25.10 Atherosclerotic heart disease of native coronary artery without angina pectoris; J45.909 Unspecified asthma, uncomplicated; N18.3 Chronic kidney disease, stage 3 (moderate); R29.6 Repeated falls; Z79.82 Long term (current) use of aspirin; Z80.3 Family history of malignant neoplasm of breast; Z80.42 Family history of malignant neoplasm of prostate; Z83.3 Family history of diabetes mellitus; Z87.891 Personal history of nicotine dependence; Z92.3 Personal history of irradiation; Z95.1 Presence of aortocoronary bypass graft; Z95.2 Presence of prosthetic heart valve; D53.9 Nutritional anemia, unspecified

== ENCOUNTER 2018-07-05 20:18 | Inpatient (IN) | payer MEDICARE ==
[2018-07-05] MEDS ORDERED: Morphine 2 mg/ml ISec IVP PRN (23:11)
[2018-07-06] MEDS: Oxycodone/Acetaminophen 5/325 mg Tab PO PRN ×2 (00:42→07:02)
[2018-07-06 01:23] VITALS: BMI 20.7
[2018-07-06] MEDS: Latanoprost 2.5 ml Opht Soln OU SCH ×2 (02:21→21:44)
[2018-07-06] MEDS: Pantoprazole 40 mg EC Tab PO SCH (05:19)
[2018-07-06] MEDS: Enoxaparin 40 mg Syringe SC SCH (05:19)
[2018-07-06 06:28] LABS: BASO # 0.01 K/mm3 (0.0-2.0); BASO % 0.2 % (0.0-3.0); EOS # 0.2 (0.0-0.7); GRAN # 3.93 (1.4-6.5); GRAN % 71.9 % (50.0-68.0); HEMOGLOBIN 8.3 g/dL (14.0-18.0); LYMPH # 0.9 (1.2-3.4); LYMPH % 16.6 % (22.0-35.0); MEAN CELL VOLUME 92.4 fl (80.0-105.0); MEAN CORPUSCULAR HEMOGLOBIN 30.2 pg (25.0-35.0); MEAN CORPUSCULAR HGB CONC 32.7 g/dl (31.0-37.0); MEAN PLATELET VOLUME 8.7 fl (7.0-11.0); MONO # 0.4 (0.1-0.6); MONO % 7.3 % (1.0-6.0); RBC 2.75 10^6/uL (3.5-6.1); RED CELL DISTRIBUTION WIDTH 14.9 % (11.5-14.5); WHITE BLOOD COUNT 5.5 10^3/uL (4.5-11.0)
[2018-07-06] MEDS: Insulin Reg-LOW-Coverage SC SCH ×4 (06:37→22:10)
[2018-07-06 07:03] LABS: ALB/GLOB RATIO 1.1 (1.1-1.8); ALBUMIN 3.2 g/dL (3.0-4.8); ALT/SGPT 23 U/L (7-56); AST/SGOT 24 U/L (17-59); BLOOD UREA NITROGEN 42 mg/dL (7-21); CALCIUM 8.6 mg/dL (8.4-10.5); GFR NON-AFRICAN AMERICAN 57
--- NOTE | 2018-07-06 08:00 | CP.PCM.HP ---
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 Patient normally gets around with a walker but has recently had issues ambulating and had increase in falls. Patient was on the medical/surgical floor and was transferred 07/05/18 to TCU for more acute rehab and strengthening. Patient denies chest pain, SOB, fever, chills, loss of urinary incontinence, paresthesias, fatigue, loss of appetite or constipation. 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 3pack a day. Denies illicit drug use, denies alcohol use Lives with his two sons, elder son lives upstairs with him. Younger son lives downstairs Allergies: NKDA Meds: as per SEP PMD: Dr Moreland Radiation Oncologist: Dr Mcpherson in [place] Urologist: Dr Jeffries Neurologist: Dr Murdock Cardio: Trixie Nephro: Yumiko GI: Dr Menchaca Present on Admission - Present on Admission Any Indicators Present on Admission: No Review of Systems - Review of Systems Review of Systems: 12 point ROS completed and negative except as described in HPI. - Hematologic/Lymphatic Additional comments: - Constitutional Appears: Non-toxic, No Acute Distress - Head Exam Head Exam: ATRAUMATIC, NORMAL INSPECTION, NORMOCEPHALIC - Eye Exam Eye Exam: EOMI, Normal appearance, PERRL, no conjunctivitis Pupil Exam: NORMAL ACCOMODATION - ENT Exam ENT Exam: Mucous Membranes Moist, Normal Exam - Neck Exam Neck exam: Positive for: Normal Inspection - Respiratory Exam Respiratory Exam: Clear to Auscultation Bilateral, NORMAL BREATHING PATTERN - Cardiovascular Exam Cardiovascular Exam: REGULAR RHYTHM, +S1, +S2 - GI/Abdominal Exam GI & Abdominal Exam: Normal Bowel Sounds, Soft. absent: Tenderness - Extremities Exam Extremities exam: Positive for: normal inspection, pedal pulses present. Negative for: calf tenderness, joint swelling, pedal edema Additional comments: sensory and motor strength in tact bilaterally in lower extremities. - Neurological Exam Neurological exam: Alert, CN II-XII Intact, Oriented x3 Past Patient History - Infectious Disease Hx of Infectious Diseases: None - Tetanus Immunizations Tetanus Immunization: Unknown - Past Medical History & Family History Past Medical History?: Yes - Past Social History Smoking Status: Former Smoker - CARDIAC Hx Cardiac Disorders: Yes (s/p CABG, 2014 [facility], valve replacement) Hx Congestive Heart Failure: Yes Hx Hypercholesterolemia: Yes Hx Hypertension: Yes - PULMONARY Hx Respiratory Disorders: Yes Hx Asthma: Yes - NEUROLOGICAL Hx Neurological Disorder: Yes Other/Comment: sciatic nerve pain radiates down both legs - HEENT Hx HEENT Problems: Yes (reading glasses) Hx Glaucoma: Yes Other/Comment: [facility] uses b/l hearing aids which pt left at home - RENAL Hx Chronic Kidney Disease: Yes (stage 3) - ENDOCRINE/METABOLIC Hx Diabetes Mellitus Type 2: Yes - HEMATOLOGICAL/ONCOLOGICAL Hx Blood Disorders: Yes Hx Anemia: Yes (blood transfusion) Hx Cancer: Yes (dx 1 yr ago w/prostate ca w/mets) Hx Metastesis: Yes (lumbar spine) Other/Comment: pt dx with prostate ca about 1 yr ago with mets to lumbar spine, at [facility], pt was put on zitiga 2 pills a day and psa was 24 now is 1.3 as of last week. pt has been treated with hormone injections x3. pt completed 10 palliative radiation treatments at [facility] on 05/18/18. The radiation treatment affected the sciatic nerve causing back pain which has been worsening. This was a possible side effect as was explained to pt by oncologist - INTEGUMENTARY Hx Dermatological Problems: Yes Other/Comment: brown skin discoloration lower r abd, dry red scab to right elbow, thick dry toenails, dry skin to feet, multiple small skin discolorations both legs, stage 1 sacral dry wound 2cm x 1.5cm - MUSCULOSKELETAL/RHEUMATOLOGICAL Hx Falls: Yes - GASTROINTESTINAL Hx Gastrointestinal Disorders: Yes - GENITOURINARY/GYNECOLOGICAL Hx Genitourinary Disorders: No Hx Reproductive Disorders: No - PSYCHIATRIC Hx Psychophysiologic Disorder: No Hx Substance Use: No - SURGICAL HISTORY Hx Surgeries: Yes (CABG,AVR, 2015 at [facility]) Other/Comment: t&a age 7, cardiac cath 2014, 10/11/17 cystoscope laser vaporization of prostate by dr jeffries - ANESTHESIA Hx Anesthesia: Yes Hx Anesthesia Reactions: No Hx Malignant Hyperthermia: No Meds Allergies/Adverse Reactions: Allergies Allergy/AdvReac Type Severity Reaction Status Date / Time No Known Allergies Allergy Verified 07/06/18 04:26 Physical Exam - Additional Findings Additional findings: Appears: Non-toxic, No Acute Distress - Head Exam Head Exam: ATRAUMATIC, NORMAL INSPECTION, NORMOCEPHALIC - Eye Exam Eye Exam: EOMI, Normal appearance, PERRL, no conjunctivitis Pupil Exam: NORMAL ACCOMODATION - ENT Exam ENT Exam: Mucous Membranes Moist, Normal Exam - Neck Exam Neck exam: Positive for: Normal Inspection - Respiratory Exam Respiratory Exam: Clear to Auscultation Bilateral, NORMAL BREATHING PATTERN - Cardiovascular Exam Cardiovascular Exam: REGULAR RHYTHM, +S1, +S2 - GI/Abdominal Exam GI & Abdominal Exam: Normal Bowel Sounds, Soft. absent: Tenderness - Extremities Exam Extremities exam: Positive for: normal inspection, pedal pulses present. Negative for: calf tenderness, joint swelling, pedal edema Additional comments: sensory and motor strength intact bilaterally in lower extremities. - Neurological Exam Neurological exam: Alert, CN II-XII Intact, Oriented x3 Results - Vital Signs Recent Vital Signs: Last Vital Signs Temp 99 F 07/06/18 00:55 Pulse 78 07/06/18 00:55 Resp 20 07/06/18 00:55 BP 148/65 07/06/18 00:55 Pulse Ox - Labs Result Diagrams: 07/06/18 06:00 07/06/18 06:00 Labs: Laboratory Results - last 24 hr 07/06/18 07/06/18 06:00 06:00 WBC 5.5 RBC 2.75 L Hgb 8.3 L Hct 25.4 L MCV 92.4 MCH 30.2 MCHC 32.7 RDW 14.9 H Plt Count 203 MPV 8.7 Gran % 71.9 H Lymph % (Auto) 16.6 L [place] % (Auto) 7.3 H Eos % (Auto) 4.0 Baso % (Auto) 0.2 Gran # 3.93 Lymph # (Auto) 0.9 L [place] # (Auto) 0.4 Eos # (Auto) 0.2 Baso # (Auto) 0.01 Sodium 141 Potassium 4.1 Chloride 106 Carbon Dioxide 31 Anion Gap 8 L BUN 42 H Creatinine 1.2 Est GFR ( Amer) > 60 Est GFR (Non-Af Amer) 57 Random Glucose 102 Calcium 8.6 Total Bilirubin 0.3 AST 24 ALT 23 Alkaline Phosphatase 85 Total Protein 6.3 Albumin 3.2 Globulin 3.1 Albumin/Globulin Ratio 1.1 Assessment & Plan - Assessment and Plan (Free Text) Assessment: 88 yo M with PMH CAD s/p CABG (2013), 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 Transferred from med/surg floor to TCU for strengthening yesterday. Plan: Bilateral hip and LE pain with frequent falls -lumbosacral xrays - no acute fractures. Degenerative spondylosis noted. -morphine, percocet, motrin for pain control as needed -Gabapentin -lidoderm patch - TCU acute rehab - fall precautions - f/u Vit D level HTN -Norvasc 5mg po daily -Cozaar 75mg po daily DM -ISS- low dose -carb consistent diet Chronic anemia -Asymptomatic; Hemodynamically stable - stable at 8.1 today -continue to monitor Hx Prostate CA s/p cystoscopy with laser vaporization of prostate, -continue outpatient followup at [place] -Tamsulosin 0.4mg -continue prednisone 5mg -home zitiga Hx CAD s/p CABG -ASA 81mg daily -Lipitor 20mg po HS Hx of Glaucoma Latanoprost PPx Lovenox SC Protonix Dispo: TCU for strengthening Patient seen, case reviewed and plan approved by Dr. Marcos. Angel Mccrary, PGY-1 <Tanvir Marcos - Last Filed: 07/06/18 13:10> Results - Vital Signs Recent Vital Signs: Last Vital Signs Temp 99 F 07/06/18 00:55 Pulse 84 07/06/18 12:44 Resp 20 07/06/18 00:55 BP 125/57 L 07/06/18 12:44 Pulse Ox 97 07/06/18 12:44 - Labs Result Diagrams: 07/06/18 06:00 07/06/18 06:00 Labs: Laboratory Results - last 24 hr 07/06/18 07/06/18 07/06/18 00:34 04:59 06:00 WBC 5.5 RBC 2.75 L Hgb 8.3 L Hct 25.4 L MCV 92.4 MCH 30.2 MCHC 32.7 RDW 14.9 H Plt Count 203 MPV 8.7 Gran % 71.9 H Lymph % (Auto) 16.6 L [place] % (Auto) 7.3 H Eos % (Auto) 4.0 Baso % (Auto) 0.2 Gran # 3.93 Lymph # (Auto) 0.9 L [place] # (Auto) 0.4 Eos # (Auto) 0.2 Baso # (Auto) 0.01 Sodium Potassium Chloride Carbon Dioxide Anion Gap BUN Creatinine Est GFR ( Amer) Est GFR (Non-Af Amer) POC Glucose (mg/dL) 215 H 92 Random Glucose Calcium Total Bilirubin AST ALT Alkaline Phosphatase Total Protein Albumin Globulin Albumin/Globulin Ratio 07/06/18 07/06/18 06:00 11:10 WBC RBC Hgb Hct MCV MCH MCHC RDW Plt Count MPV Gran % Lymph % (Auto) [place] % (Auto) Eos % (Auto) Baso % (Auto) Gran # Lymph # (Auto) [place] # (Auto) Eos # (Auto) Baso # (Auto) Sodium 141 Potassium 4.1 Chloride 106 Carbon Dioxide 31 Anion Gap 8 L BUN 42 H Creatinine 1.2 Est GFR ( Amer) > 60 Est GFR (Non-Af Amer) 57 POC Glucose (mg/dL) 166 H Random Glucose 102 Calcium 8.6 Total Bilirubin 0.3 AST 24 ALT 23 Alkaline Phosphatase 85 Total Protein 6.3 Albumin 3.2 Globulin 3.1 Albumin/Globulin Ratio 1.1 Attending/Attestation - Attestation I have personally seen and examined this patient.: Yes I have fully participated in the care of the patient.: Yes I have reviewed all pertinent clinical information: Yes Notes (Text): 07/06/18 13:09 88 year old male with past medical history of CAD s/p CABG, metastatic prostate cancer s/p radiation, sciatica, and diabetes who presented with low back / hip pain and frequent falls at home. Xrays were negative for acute fracture. He was transferred to TCU for physical therapy. Continue with PT as tolerated. He is on percocet prn and gabapentin. He is also on lidoderm patch. Continue with home medications for CAD/HTN. Continue to monitor anemia closely. Tanvir Marcos MD Hospitalist.
[2018-07-06] MEDS: Lidocaine 5% Patch TD SCH (10:52)
[2018-07-07] MEDS: Oxycodone/Acetaminophen 5/325 mg Tab PO PRN ×2 (00:33→17:08)
[2018-07-07] MEDS: Pantoprazole 40 mg EC Tab PO SCH (06:25)
[2018-07-07] MEDS: Enoxaparin 40 mg Syringe SC SCH (06:25)
[2018-07-07] MEDS: Insulin Reg-LOW-Coverage SC SCH ×4 (06:42→21:49)
[2018-07-07] MEDS: Lidocaine 5% Patch TD SCH (09:50)
[2018-07-07] MEDS: Latanoprost 2.5 ml Opht Soln OU SCH (21:50)
[2018-07-08] MEDS: Pantoprazole 40 mg EC Tab PO SCH (05:02)
[2018-07-08] MEDS: Enoxaparin 40 mg Syringe SC SCH (05:02)
[2018-07-08] MEDS: Insulin Reg-LOW-Coverage SC SCH ×3 (06:46→17:53)
[2018-07-08] MEDS: Lidocaine 5% Patch TD SCH (09:26)
[2018-07-08] MEDS: Oxycodone/Acetaminophen 5/325 mg Tab PO PRN ×2 (09:27→23:10)
--- NOTE | 2018-07-08 11:27 | CP.PCM.PN ---
<Angel Mccrary - Last Filed: 07/08/18 11:17> Subjective - Date & Time of Evaluation Date of Evaluation: 07/08/18 Time of Evaluation: 07:15 - Subjective Subjective: Angel Mccrary PGY-1 Progress Note for Hospitalist Service Patient seen and evaluated at bedside. No acute events reported overnight. Patient states pain is controlled. Denies chest pain, palpitations, shortness of breath, dizziness, leg pain and blurry vision. Patient last BM on 07/06. Spoke to patient regarding eyedrops, and spoke to nursing to provide drops of both green and white bottles per patient's request and home medications. Objective - Vital Signs/Intake and Output Vital Signs (last 24 hours): Temp Pulse Resp BP Pulse Ox 98.1 F 66 18 162/63 H 98 07/08/18 06:00 07/08/18 06:00 07/08/18 06:00 07/08/18 06:00 07/08/18 06:00 - Medications Medications: Current Medications Amlodipine Besylate (Norvasc) 5 mg PO 1800 MERY; Protocol Last Admin: 07/07/18 18:30 Dose: 5 mg Aspirin (Ecotrin) 81 mg PO 0800 MERY; Protocol Last Admin: 07/08/18 09:22 Dose: 81 mg Atorvastatin Calcium (Lipitor) 20 mg PO 1700 MERY; Protocol Last Admin: 07/07/18 18:30 Dose: 20 mg Enoxaparin Sodium (Lovenox) 40 mg SC 0600 MERY; Protocol Last Admin: 07/08/18 05:02 Dose: 40 mg Gabapentin (Neurontin) 300 mg PO Q8 MERY; Protocol Last Admin: 07/08/18 05:02 Dose: 300 mg Home Med (Home Med) 2 unit PO 0700,1630 MERY; Protocol Last Admin: 07/08/18 07:20 Dose: 2 unit Ibuprofen (Motrin Tab) 600 mg PO Q6H PRN; Protocol PRN Reason: Pain, Mild (1-3) Last Admin: 07/07/18 09:50 Dose: 600 mg Insulin Human Regular (Humulin R Low) 0 units SC ACHS MERY; Protocol Last Admin: 07/08/18 06:46 Dose: Not Given Latanoprost (Xalatan Opht) 0 ml OU HS MERY; Protocol Last Admin: 07/07/18 21:50 Dose: 2.5 ml Lidocaine (Lidoderm) 1 ea TD DAILY MERY; Protocol Last Admin: 07/08/18 09:26 Dose: 1 ea Losartan Potassium (Cozaar) 50 mg PO DAILY MERY; Protocol Last Admin: 07/08/18 09:54 Dose: Not Given Morphine Sulfate (Morphine) 1 mg IVP Q4H PRN; Protocol PRN Reason: Pain, severe (8-10) Oxycodone/Acetaminophen (Percocet 5/325 Mg Tab) 1 tab PO Q6H PRN; Protocol PRN Reason: Pain, moderate (4-7) Stop: 07/08/18 23:12 Last Admin: 07/08/18 09:27 Dose: 1 tab Pantoprazole Sodium (Protonix Ec Tab) 40 mg PO 0600 MERY; Protocol Last Admin: 07/08/18 05:02 Dose: 40 mg Prednisone (Prednisone Tab) 5 mg PO 0800 MERY; Protocol Last Admin: 07/08/18 08:24 Dose: 5 mg Tamsulosin HCl (Flomax) 0.4 mg PO BID MERY; Protocol Last Admin: 07/08/18 09:26 Dose: 0.4 mg - Labs Labs: 07/06/18 06:00 07/06/18 06:00 - Additional Findings Additional findings: Additional findings: Appears: Non-toxic, No Acute Distress - Head Exam Head Exam: ATRAUMATIC, NORMAL INSPECTION, NORMOCEPHALIC - Eye Exam Eye Exam: EOMI, Normal appearance, PERRL, no conjunctivitis Pupil Exam: NORMAL ACCOMODATION - ENT Exam ENT Exam: Mucous Membranes Moist, Normal Exam - Neck Exam Neck exam: Positive for: Normal Inspection - Respiratory Exam Respiratory Exam: Clear to Auscultation Bilateral, NORMAL BREATHING PATTERN - Cardiovascular Exam Cardiovascular Exam: REGULAR RHYTHM, +S1, +S2 - GI/Abdominal Exam GI & Abdominal Exam: Normal Bowel Sounds, Soft. absent: Tenderness - Extremities Exam Extremities exam: Positive for: normal inspection, pedal pulses present. Negative for: calf tenderness, joint swelling, pedal edema Additional comments: sensory and motor strength intact bilaterally in lower extremities. 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 Transferred from med/surg floor to TCU for strengthening. Plan: Bilateral hip and LE pain with frequent falls -lumbosacral xrays - no acute fractures. Degenerative spondylosis noted. -morphine, percocet, motrin for pain control as needed -Gabapentin -lidoderm patch - TCU acute rehab - fall precautions - Vit D level 51 - Cholecalciferol 1000 units daily HTN -Norvasc 5mg po daily -Cozaar 75mg po daily DM -ISS- low dose -carb consistent diet Chronic anemia -Asymptomatic; Hemodynamically stable - stable at 8.1 today -continue to monitor Hx Prostate CA s/p cystoscopy with laser vaporization of prostate, -continue outpatient followup at [place] -Tamsulosin 0.4mg -continue prednisone 5mg -home zitiga Hx CAD s/p CABG -ASA 81mg daily -Lipitor 20mg po HS Hx of Glaucoma Latanoprost PPx Lovenox SC Protonix Dispo: TCU for strengthening, Awaiting length of stay determination Patient seen, case reviewed and plan approved by Dr. Marcos. Angel Mccrary, PGY-1 <Tanvir Marcos - Last Filed: 07/08/18 14:11> Objective - Vital Signs/Intake and Output Vital Signs (last 24 hours): Temp Pulse Resp BP Pulse Ox 98.1 F 66 18 162/63 H 98 07/08/18 06:00 07/08/18 06:00 07/08/18 06:00 07/08/18 06:00 07/08/18 06:00 - Medications Medications: Current Medications Amlodipine Besylate (Norvasc) 5 mg PO 1800 MERY; Protocol Last Admin: 07/07/18 18:30 Dose: 5 mg Aspirin (Ecotrin) 81 mg PO 0800 MERY; Protocol Last Admin: 07/08/18 09:22 Dose: 81 mg Atorvastatin Calcium (Lipitor) 20 mg PO 1700 MERY; Protocol Last Admin: 07/07/18 18:30 Dose: 20 mg Cholecalciferol (Vitamin D) 1,000 intlu PO DAILY MERY Last Admin: 07/08/18 13:27 Dose: 1,000 intlu Enoxaparin Sodium (Lovenox) 40 mg SC 0600 MERY; Protocol Last Admin: 07/08/18 05:02 Dose: 40 mg Gabapentin (Neurontin) 300 mg PO Q8 MERY; Protocol Last Admin: 07/08/18 13:27 Dose: 300 mg Home Med (Home Med) 2 unit PO 0700,1630 MERY; Protocol Last Admin: 07/08/18 07:20 Dose: 2 unit Home Med (Home Med) 1 unit OU 1600 MERY Ibuprofen (Motrin Tab) 600 mg PO Q6H PRN; Protocol PRN Reason: Pain, Mild (1-3) Last Admin: 07/07/18 09:50 Dose: 600 mg Insulin Human Regular (Humulin R Low) 0 units SC ACHS MERY; Protocol Last Admin: 07/08/18 12:30 Dose: 2 units Latanoprost (Xalatan Opht) 0 ml OU HS MERY; Protocol Last Admin: 07/07/18 21:50 Dose: 2.5 ml Lidocaine (Lidoderm) 1 ea TD DAILY MERY; Protocol Last Admin: 07/08/18 09:26 Dose: 1 ea Losartan Potassium (Cozaar) 50 mg PO DAILY MERY; Protocol Last Admin: 07/08/18 09:54 Dose: Not Given Morphine Sulfate (Morphine) 1 mg IVP Q4H PRN; Protocol PRN Reason: Pain, severe (8-10) Oxycodone/Acetaminophen (Percocet 5/325 Mg Tab) 1 tab PO Q6H PRN; Protocol PRN Reason: Pain, moderate (4-7) Stop: 07/08/18 23:12 Last Admin: 07/08/18 09:27 Dose: 1 tab Pantoprazole Sodium (Protonix Ec Tab) 40 mg PO 0600 MERY; Protocol Last Admin: 07/08/18 05:02 Dose: 40 mg Prednisone (Prednisone Tab) 5 mg PO 0800 MERY; Protocol Last Admin: 07/08/18 08:24 Dose: 5 mg Tamsulosin HCl (Flomax) 0.4 mg PO BID MERY; Protocol Last Admin: 07/08/18 09:26 Dose: 0.4 mg - Labs Labs: 07/06/18 06:00 07/06/18 06:00 Attending/Attestation - Attestation I have personally seen and examined this patient.: Yes I have fully participated in the care of the patient.: Yes I have reviewed all pertinent clinical information, including history, physical exam and plan: Yes Notes (Text): 07/08/18 14:10 88 year old male with past medical history of CAD s/p CABG, metastatic prostate cancer s/p radiation, sciatica, and diabetes who presented with low back / hip pain and frequent falls at home. Xrays were negative for acute fracture. He was transferred to TCU for physical therapy. Continue with physical therapy as tolerated. Continue with percocet prn, lidoderm patch and gabapentin. Continue with home medications for CAD/HTN. Continue to monitor anemia closely. Tanvir Marcos MD Hospitalist.
[2018-07-08] MEDS: Cholecalciferol 1,000 INTLU TAB PO SCH (13:27)
[2018-07-08] MEDS: RHOPRESSA OU SCH (17:43)
[2018-07-08] MEDS: Latanoprost 2.5 ml Opht Soln OU SCH (21:46)
[2018-07-09] MEDS: Insulin Reg-LOW-Coverage SC SCH ×4 (02:27→17:51)
[2018-07-09] MEDS: Pantoprazole 40 mg EC Tab PO SCH (06:00)
[2018-07-09] MEDS: Enoxaparin 40 mg Syringe SC SCH (06:29)
[2018-07-09] MEDS: Cholecalciferol 1,000 INTLU TAB PO SCH (10:05)
[2018-07-09] MEDS: Lidocaine 5% Patch TD SCH (10:06)
[2018-07-09] MEDS ORDERED: Morphine 2 mg/ml ISec IVP PRN (10:27)
[2018-07-09] MEDS: Oxycodone/Acetaminophen 5/325 mg Tab PO PRN (10:34)
[2018-07-09] MEDS: RHOPRESSA OU SCH (17:44)
[2018-07-09] MEDS: Latanoprost 2.5 ml Opht Soln OU SCH (21:43)
[2018-07-10] MEDS: Oxycodone/Acetaminophen 5/325 mg Tab PO PRN (00:52)
[2018-07-10] MEDS: Insulin Reg-LOW-Coverage SC SCH ×5 (01:26→22:11)
[2018-07-10] MEDS: Pantoprazole 40 mg EC Tab PO SCH (06:29)
[2018-07-10] MEDS: Enoxaparin 40 mg Syringe SC SCH (06:29)
--- NOTE | 2018-07-10 07:28 | CP.PCM.PN ---
<Stevie Bacon - Last Filed: 07/10/18 15:11> Subjective - Date & Time of Evaluation Date of Evaluation: 07/10/18 Time of Evaluation: 07:28 - Subjective Subjective: Stewart Bacon PGY2 - Progress note for Hospitalist Service Patient seen and examined this AM. No acute events reported overnight. Patient without complaints on interview today. Patient denies chest pain, shortness of breath, abdominal pain, nausea, vomiting, fever. He continues to work with physical therapy with success. Objective - Vital Signs/Intake and Output Vital Signs (last 24 hours): Temp Pulse Resp BP Pulse Ox 98 F 76 18 137/59 L 98 07/09/18 16:00 07/09/18 17:45 07/09/18 16:00 07/09/18 17:45 07/09/18 16:00 - Medications Medications: Current Medications Amlodipine Besylate (Norvasc) 5 mg PO 1800 MERY; Protocol Last Admin: 07/09/18 17:45 Dose: 5 mg Aspirin (Ecotrin) 81 mg PO 0800 MERY; Protocol Last Admin: 07/09/18 08:02 Dose: 81 mg Atorvastatin Calcium (Lipitor) 20 mg PO 1700 MERY; Protocol Last Admin: 07/09/18 17:45 Dose: 20 mg Cholecalciferol (Vitamin D) 1,000 intlu PO DAILY MERY Last Admin: 07/09/18 10:05 Dose: 1,000 intlu Enoxaparin Sodium (Lovenox) 40 mg SC 0600 MERY; Protocol Last Admin: 07/10/18 06:29 Dose: 40 mg Gabapentin (Neurontin) 300 mg PO Q8 MERY; Protocol Last Admin: 07/10/18 06:29 Dose: 300 mg Home Med (Home Med) 2 unit PO 0700,1630 MERY; Protocol Last Admin: 07/10/18 06:29 Dose: 2 unit Home Med (Home Med) 1 unit OU 1600 MERY Last Admin: 07/09/18 17:44 Dose: 1 unit Ibuprofen (Motrin Tab) 600 mg PO Q6H PRN; Protocol PRN Reason: Pain, Mild (1-3) Last Admin: 07/07/18 09:50 Dose: 600 mg Insulin Human Regular (Humulin R Low) 0 units SC ACHS MERY; Protocol Last Admin: 07/10/18 06:56 Dose: Not Given Latanoprost (Xalatan Opht) 0 ml OU HS MERY; Protocol Last Admin: 07/09/18 21:43 Dose: 2.5 ml Lidocaine (Lidoderm) 1 ea TD DAILY MERY; Protocol Last Admin: 07/09/18 10:06 Dose: 1 ea Losartan Potassium (Cozaar) 50 mg PO DAILY MERY; Protocol Last Admin: 07/09/18 10:06 Dose: Not Given Morphine Sulfate (Morphine) 1 mg IVP Q4H PRN; Protocol PRN Reason: Pain, moderate (4-7) Oxycodone/Acetaminophen (Percocet 5/325 Mg Tab) 1 tab PO Q6H PRN; Protocol PRN Reason: Pain, severe (8-10) Stop: 07/12/18 10:24 Last Admin: 07/10/18 00:52 Dose: 1 tab Pantoprazole Sodium (Protonix Ec Tab) 40 mg PO 0600 MERY; Protocol Last Admin: 07/10/18 06:29 Dose: 40 mg Prednisone (Prednisone Tab) 5 mg PO 0800 MERY; Protocol Last Admin: 07/09/18 08:02 Dose: 5 mg Tamsulosin HCl (Flomax) 0.4 mg PO BID MERY; Protocol Last Admin: 07/09/18 17:45 Dose: 0.4 mg - Labs Labs: 07/06/18 06:00 07/06/18 06:00 - Head Exam Head Exam: ATRAUMATIC, NORMAL INSPECTION, NORMOCEPHALIC - Eye Exam Eye Exam: EOMI, PERRL - ENT Exam ENT Exam: Mucous Membranes Moist - Neck Exam Neck Exam: Full ROM - Respiratory Exam Respiratory Exam: Clear to Ausculation Bilateral, NORMAL BREATHING PATTERN - Cardiovascular Exam Cardiovascular Exam: REGULAR RHYTHM, +S1, +S2 - GI/Abdominal Exam GI & Abdominal Exam: Soft, Normal Bowel Sounds - Extremities Exam Extremities Exam: absent: Pedal Edema - Neurological Exam Neurological Exam: Alert, Awake, Oriented x3 Neuro motor strength exam: Left Upper Extremity: 5, Right Upper Extremity: 5, Left Lower Extremity: 5, Right Lower Extremity: 5 - Psychiatric Exam Psychiatric exam: Normal Affect, Normal Mood - Skin Skin Exam: Dry, Intact Assessment and Plan - Assessment and Plan (Free Text) Assessment: 88 yo M with PMH CAD s/p CABG (2013), 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 Patient currently undergoing physical therapy in TCU for deconditioning and frequent falls. Plan: Bilateral hip and LE pain with frequent falls - lumbosacral xrays - no acute fractures. Degenerative spondylosis noted. - morphine, percocet, motrin for pain control as needed - Gabapentin - lidoderm patch - TCU acute rehab - fall precautions - Vit D level 51 - Cholecalciferol 1000 units daily HTN - Norvasc 5mg po daily - Cozaar 75mg po daily - Controlled, continue to monitor DM - ISS- low dose - ACHS - CCD Chronic anemia - Asymptomatic; Hemodynamically stable - stable at 8.1 today - continue to monitor Hx Prostate CA s/p cystoscopy with laser vaporization of prostate, - continue outpatient followup at [place] - Tamsulosin 0.4mg - continue prednisone 5mg - home zitiga Hx CAD s/p CABG - ASA 81mg daily - Lipitor 20mg po HS Hx of Glaucoma - Latanoprost OD GI/DVT PPx - Lovenox SC - Protonix Patient seen, case reviewed and plan approved by Dr. Marcos. <Tanvir Marcos - Last Filed: 07/10/18 15:31> Objective - Vital Signs/Intake and Output Vital Signs (last 24 hours): Temp Pulse Resp BP Pulse Ox 97.1 F L 69 18 124/56 L 97 07/10/18 10:00 07/10/18 10:10 07/10/18 10:00 07/10/18 10:10 07/10/18 10:00 - Medications Medications: Current Medications Amlodipine Besylate (Norvasc) 5 mg PO 1800 MERY; Protocol Last Admin: 07/09/18 17:45 Dose: 5 mg Aspirin (Ecotrin) 81 mg PO 0800 MERY; Protocol Last Admin: 07/10/18 08:00 Dose: 81 mg Atorvastatin Calcium (Lipitor) 20 mg PO 1700 MERY; Protocol Last Admin: 07/09/18 17:45 Dose: 20 mg Cholecalciferol (Vitamin D) 1,000 intlu PO DAILY MERY Last Admin: 07/10/18 10:10 Dose: 1,000 intlu Enoxaparin Sodium (Lovenox) 40 mg SC 0600 MERY; Protocol Last Admin: 07/10/18 06:29 Dose: 40 mg Gabapentin (Neurontin) 300 mg PO Q8 MERY; Protocol Last Admin: 07/10/18 14:47 Dose: 300 mg Home Med (Home Med) 2 unit PO 0700,1630 MERY; Protocol Last Admin: 07/10/18 06:29 Dose: 2 unit Home Med (Home Med) 1 unit OU 1600 MERY Last Admin: 07/09/18 17:44 Dose: 1 unit Ibuprofen (Motrin Tab) 600 mg PO Q6H PRN; Protocol PRN Reason: Pain, Mild (1-3) Last Admin: 07/07/18 09:50 Dose: 600 mg Insulin Human Regular (Humulin R Low) 0 units SC ACHS MERY; Protocol Last Admin: 07/10/18 11:34 Dose: Not Given Latanoprost (Xalatan Opht) 0 ml OU HS MERY; Protocol Last Admin: 07/09/18 21:43 Dose: 2.5 ml Lidocaine (Lidoderm) 1 ea TD DAILY MERY; Protocol Last Admin: 07/10/18 10:10 Dose: 1 ea Losartan Potassium (Cozaar) 50 mg PO DAILY MERY; Protocol Last Admin: 07/10/18 10:10 Dose: 50 mg Morphine Sulfate (Morphine) 1 mg IVP Q4H PRN; Protocol PRN Reason: Pain, moderate (4-7) Oxycodone/Acetaminophen (Percocet 5/325 Mg Tab) 1 tab PO Q6H PRN; Protocol PRN Reason: Pain, severe (8-10) Stop: 07/12/18 10:24 Last Admin: 07/10/18 00:52 Dose: 1 tab Pantoprazole Sodium (Protonix Ec Tab) 40 mg PO 0600 MERY; Protocol Last Admin: 07/10/18 06:29 Dose: 40 mg Prednisone (Prednisone Tab) 5 mg PO 0800 MERY; Protocol Last Admin: 07/10/18 08:00 Dose: 5 mg Tamsulosin HCl (Flomax) 0.4 mg PO BID MERY; Protocol Last Admin: 07/10/18 10:10 Dose: 0.4 mg - Labs Labs: 07/10/18 07:42 07/10/18 07:42 Attending/Attestation - Attestation I have personally seen and examined this patient.: Yes I have fully participated in the care of the patient.: Yes I have reviewed all pertinent clinical information, including history, physical exam and plan: Yes Notes (Text): 07/10/18 15:30 88 year old male with past medical history of CAD s/p CABG, metastatic prostate cancer s/p radiation, sciatica, and diabetes who presented with low back / hip pain and frequent falls at home. Xrays were negative for acute fracture. He was transferred to TCU for physical therapy. Continue with physical therapy as tolerated. Continue with percocet prn, lidoderm patch and gabapentin. Continue with home medications for CAD/HTN. Continue to monitor anemia closely which has been stable. Tanvir Marcos MD Hospitalist.
[2018-07-10 07:48] LABS: BASO # 0.02 K/mm3 (0.0-2.0); BASO % 0.4 % (0.0-3.0); EOS # 0.3 (0.0-0.7); EOS % 5.8 % (1.5-5.0); GRAN # 3.22 (1.4-6.5); GRAN % 66.4 % (50.0-68.0); HEMOGLOBIN 8.6 g/dL (14.0-18.0); LYMPH % 20.4 % (22.0-35.0); MEAN CELL VOLUME 93.3 fl (80.0-105.0); MEAN CORPUSCULAR HEMOGLOBIN 30.2 pg (25.0-35.0); MEAN CORPUSCULAR HGB CONC 32.3 g/dl (31.0-37.0); MONO # 0.3 (0.1-0.6); RBC 2.85 10^6/uL (3.5-6.1); RED CELL DISTRIBUTION WIDTH 14.8 % (11.5-14.5); WHITE BLOOD COUNT 4.9 10^3/uL (4.5-11.0)
[2018-07-10 08:41] LABS: ALB/GLOB RATIO 1.2 (1.1-1.8); ALBUMIN 3.3 g/dL (3.0-4.8); CALCIUM 8.9 mg/dL (8.4-10.5)
[2018-07-10] MEDS: Cholecalciferol 1,000 INTLU TAB PO SCH (10:10)
[2018-07-10] MEDS: Lidocaine 5% Patch TD SCH (10:10)
[2018-07-10] MEDS: RHOPRESSA OU SCH (17:20)
[2018-07-10] MEDS: Latanoprost 2.5 ml Opht Soln OU SCH (21:11)
[2018-07-11] MEDS: Enoxaparin 40 mg Syringe SC SCH (06:31)
[2018-07-11] MEDS: Pantoprazole 40 mg EC Tab PO SCH (06:31)
[2018-07-11] MEDS: Insulin Reg-LOW-Coverage SC SCH ×4 (06:54→21:50)
[2018-07-11] MEDS: Cholecalciferol 1,000 INTLU TAB PO SCH (10:33)
[2018-07-11] MEDS: Lidocaine 5% Patch TD SCH (10:33)
[2018-07-11] MEDS: Oxycodone/Acetaminophen 5/325 mg Tab PO PRN ×2 (15:14→21:32)
[2018-07-11] MEDS: POLYETHYLENE GLYCOL 3350 17 GM/Dose PACKET PO SCH (15:22)
[2018-07-11] MEDS: RHOPRESSA OU SCH (17:39)
[2018-07-11] MEDS: Latanoprost 2.5 ml Opht Soln OU SCH (21:34)
[2018-07-12] MEDS: Insulin Reg-LOW-Coverage SC SCH ×4 (06:53→22:38)
[2018-07-12] MEDS: Pantoprazole 40 mg EC Tab PO SCH (06:54)
[2018-07-12] MEDS: Enoxaparin 40 mg Syringe SC SCH (06:54)
[2018-07-12] MEDS: Lidocaine 5% Patch TD SCH (09:43)
[2018-07-12] MEDS: POLYETHYLENE GLYCOL 3350 17 GM/Dose PACKET PO SCH (09:43)
[2018-07-12] MEDS: Cholecalciferol 1,000 INTLU TAB PO SCH (09:44)
--- NOTE | 2018-07-12 16:50 | CP.PCM.PN ---
<Angel Mccrary - Last Filed: 07/12/18 21:43> Subjective - Date & Time of Evaluation Date of Evaluation: 07/12/18 Time of Evaluation: 10:00 - Subjective Subjective: Angel Mccrary PGY-1 Progress Note for Hospitalist Service Patient seen and evaluated at bedside this AM. No acute events reported overnight. Patient complains of difficulty moving bowels. Patient denies chest pain, shortness of breath, abdominal pain, nausea, vomiting, fever. He continues to work with physical therapy. Objective - Vital Signs/Intake and Output Vital Signs (last 24 hours): Temp Pulse Resp BP Pulse Ox 98.5 F 77 16 107/57 L 97 07/12/18 16:00 07/12/18 16:00 07/12/18 16:00 07/12/18 16:00 07/12/18 16:00 - Medications Medications: Current Medications Amlodipine Besylate (Norvasc) 5 mg PO 1800 MERY; Protocol Last Admin: 07/11/18 17:41 Dose: 5 mg Aspirin (Ecotrin) 81 mg PO 0800 MERY; Protocol Last Admin: 07/12/18 07:53 Dose: 81 mg Atorvastatin Calcium (Lipitor) 20 mg PO 1700 MERY; Protocol Last Admin: 07/11/18 17:40 Dose: 20 mg Cholecalciferol (Vitamin D) 1,000 intlu PO DAILY MERY Last Admin: 07/12/18 09:44 Dose: 1,000 intlu Docusate Sodium (Colace) 100 mg PO BID MERY Last Admin: 07/12/18 11:18 Dose: 100 mg Enoxaparin Sodium (Lovenox) 40 mg SC 0600 MERY; Protocol Last Admin: 07/12/18 06:54 Dose: 40 mg Gabapentin (Neurontin) 300 mg PO Q8 MERY; Protocol Last Admin: 07/12/18 14:09 Dose: 300 mg Home Med (Home Med) 2 unit PO 0700,1630 MERY; Protocol Last Admin: 07/12/18 06:56 Dose: 2 unit Home Med (Home Med) 1 unit OU 1600 MERY Last Admin: 07/11/18 17:39 Dose: 1 unit Ibuprofen (Motrin Tab) 600 mg PO Q6H PRN; Protocol PRN Reason: Pain, Mild (1-3) Last Admin: 12/06/18 09:50 Dose: 600 mg Insulin Human Regular (Humulin R Low) 0 units SC ACHS MERY; Protocol Last Admin: 07/12/18 12:18 Dose: 1 units Latanoprost (Xalatan Opht) 0 ml OU HS MERY; Protocol Last Admin: 07/11/18 21:34 Dose: 1 ml Lidocaine (Lidoderm) 1 ea TD DAILY MERY; Protocol Last Admin: 07/12/18 09:43 Dose: 1 ea Losartan Potassium (Cozaar) 50 mg PO DAILY MERY; Protocol Last Admin: 07/12/18 09:41 Dose: 50 mg Morphine Sulfate (Morphine) 1 mg IVP Q4H PRN; Protocol PRN Reason: Pain, moderate (4-7) Pantoprazole Sodium (Protonix Ec Tab) 40 mg PO 0600 MERY; Protocol Last Admin: 07/12/18 06:54 Dose: 40 mg Polyethylene Glycol (Miralax) 17 gm PO DAILY MEYR Last Admin: 07/12/18 09:43 Dose: 17 gm Prednisone (Prednisone Tab) 5 mg PO 0800 MERY; Protocol Last Admin: 07/12/18 07:54 Dose: 5 mg Tamsulosin HCl (Flomax) 0.4 mg PO BID MERY; Protocol Last Admin: 07/12/18 11:18 Dose: 0.4 mg - Labs Labs: 07/10/18 07:42 07/10/18 07:42 - Additional Findings Additional findings: - Head Exam Head Exam: ATRAUMATIC, NORMAL INSPECTION, NORMOCEPHALIC - Eye Exam Eye Exam: EOMI, PERRL - ENT Exam ENT Exam: Mucous Membranes Moist - Neck Exam Neck Exam: Full ROM - Respiratory Exam Respiratory Exam: Clear to Ausculation Bilateral, NORMAL BREATHING PATTERN - Cardiovascular Exam Cardiovascular Exam: REGULAR RHYTHM, +S1, +S2 - GI/Abdominal Exam GI & Abdominal Exam: Soft, Normal Bowel Sounds - Extremities Exam Extremities Exam: absent: Pedal Edema - Neurological Exam Neurological Exam: Alert, Awake, Oriented x3 Neuro motor strength exam: Left Upper Extremity: 5, Right Upper Extremity: 5, Left Lower Extremity: 5, Right Lower Extremity: 5 - Psychiatric Exam Psychiatric exam: Normal Affect, Normal Mood - Skin Skin Exam: Dry, Intact Assessment and Plan - Assessment and Plan (Free Text) Assessment: 88 yo M with PMH CAD s/p CABG (2013), 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 Patient currently undergoing physical therapy in TCU for deconditioning and frequent falls. Plan: Constipation - Last BM 2 days ago, excessive flatulence - Miralax and Colace - monitor Bilateral hip and LE pain with frequent falls - lumbosacral xrays - no acute fractures. Degenerative spondylosis noted. - morphine, percocet, motrin for pain control as needed - Gabapentin - lidoderm patch - TCU acute rehab - fall precautions - Vit D level 51 - Cholecalciferol 1000 units daily HTN - Norvasc 5mg po daily - Cozaar 75mg po daily - Controlled, continue to monitor DM - ISS- low dose - ACHS - CCD Chronic anemia - Asymptomatic; Hemodynamically stable - stable at 8.1 today - continue to monitor Hx Prostate CA s/p cystoscopy with laser vaporization of prostate, - continue outpatient followup at [place] - Tamsulosin 0.4mg - continue prednisone 5mg - home zitiga Hx CAD s/p CABG - ASA 81mg daily - Lipitor 20mg po HS Hx of Glaucoma - Latanoprost OD GI/DVT PPx - Lovenox SC - Protonix Dispo: HWS per PT Patient seen, case reviewed and plan approved by Dr. Simon. Angel Mccrary, PGY-1 <Abraham Simon - Last Filed: 07/13/18 13:51> Objective - Vital Signs/Intake and Output Vital Signs (last 24 hours): Temp Pulse Resp BP Pulse Ox 97.8 F 74 18 118/68 96 07/13/18 06:00 07/13/18 10:21 07/13/18 06:00 07/13/18 10:21 07/13/18 06:00 - Medications Medications: Current Medications Amlodipine Besylate (Norvasc) 5 mg PO 1800 MERY; Protocol Last Admin: 07/12/18 17:17 Dose: Not Given Aspirin (Ecotrin) 81 mg PO 0800 MERY; Protocol Last Admin: 07/13/18 08:09 Dose: 81 mg Atorvastatin Calcium (Lipitor) 20 mg PO 1700 MERY; Protocol Last Admin: 07/12/18 17:16 Dose: 20 mg Cholecalciferol (Vitamin D) 1,000 intlu PO DAILY MERY Last Admin: 07/13/18 10:24 Dose: 1,000 intlu Docusate Sodium (Colace) 100 mg PO BID MERY Last Admin: 07/13/18 10:21 Dose: 100 mg Enoxaparin Sodium (Lovenox) 40 mg SC 0600 MERY; Protocol Last Admin: 07/13/18 06:27 Dose: 40 mg Gabapentin (Neurontin) 300 mg PO Q8 MERY; Protocol Last Admin: 07/13/18 13:32 Dose: 300 mg Home Med (Home Med) 2 unit PO 0700,1630 MERY; Protocol Last Admin: 07/13/18 06:27 Dose: 2 unit Home Med (Home Med) 1 unit OU 1600 MERY Last Admin: 07/12/18 17:21 Dose: 1 unit Ibuprofen (Motrin Tab) 600 mg PO Q6H PRN; Protocol PRN Reason: Pain, Mild (1-3) Last Admin: 07/07/18 09:50 Dose: 600 mg Insulin Human Regular (Humulin R Low) 0 units SC ACHS [facility]; Protocol Last Admin: 07/13/18 12:13 Dose: 2 units Latanoprost (Xalatan Opht) 0 ml OU HS MERY; Protocol Last Admin: 07/12/18 22:16 Dose: 2.5 ml Lidocaine (Lidoderm) 1 ea TD DAILY MERY; Protocol Last Admin: 07/13/18 10:22 Dose: 1 ea Losartan Potassium (Cozaar) 50 mg PO DAILY MERY; Protocol Last Admin: 07/13/18 10:21 Dose: 50 mg Oxycodone/Acetaminophen (Percocet 5/325 Mg Tab) 1 tab PO Q6H PRN PRN Reason: Pain, moderate (4-7) Stop: 07/15/18 21:53 Last Admin: 07/12/18 22:16 Dose: 1 tab Pantoprazole Sodium (Protonix Ec Tab) 40 mg PO 0600 MERY; Protocol Last Admin: 07/13/18 06:27 Dose: 40 mg Polyethylene Glycol (Miralax) 17 gm PO DAILY MERY Last Admin: 07/13/18 10:23 Dose: 17 gm Prednisone (Prednisone Tab) 5 mg PO 0800 MERY; Protocol Last Admin: 07/13/18 08:09 Dose: 5 mg Tamsulosin HCl (Flomax) 0.4 mg PO BID [facility]; Protocol Last Admin: 07/13/18 10:22 Dose: 0.4 mg - Labs Labs: 07/13/18 05:45 07/13/18 05:45 Attending/Attestation - Attestation I have personally seen and examined this patient.: Yes I have fully participated in the care of the patient.: Yes I have reviewed all pertinent clinical information, including history, physical exam and plan: Yes Notes (Text): 88 yo M with PMH CAD s/p CABG, prostate CA with metastasis to the lumbar spine, sciatica with bulging discs, and falls, C/O hip and leg pain for frequent falls. Patient currently undergoing physical therapy in TCU for deconditioning and frequent falls. B/L hip pain and frequent falls HTN DM Chronic anemia Aggressive PT Pt medically stable. plan is for discharge on 07/13/18
[2018-07-12] MEDS: RHOPRESSA OU SCH (17:21)
[2018-07-12] MEDS ORDERED: Oxycodone/Acetaminophen 5/325 mg Tab PO PRN (21:52)
[2018-07-12] MEDS: Latanoprost 2.5 ml Opht Soln OU SCH (22:16)
[2018-07-13 06:16] VITALS: RESP 18; TEMP 97.8; O2SAT 96
[2018-07-13] MEDS: Enoxaparin 40 mg Syringe SC SCH (06:27)
[2018-07-13] MEDS: Pantoprazole 40 mg EC Tab PO SCH (06:27)
[2018-07-13 07:08] LABS: BASO # 0.03 K/mm3 (0.0-2.0); BASO % 0.6 % (0.0-3.0); EOS # 0.3 (0.0-0.7); EOS % 5.2 % (1.5-5.0); GRAN # 3.61 (1.4-6.5); GRAN % 69.7 % (50.0-68.0); HEMOGLOBIN 8.4 g/dL (14.0-18.0); LYMPH % 18.9 % (22.0-35.0); MEAN CELL VOLUME 93.4 fl (80.0-105.0); MEAN CORPUSCULAR HEMOGLOBIN 30.9 pg (25.0-35.0); MEAN CORPUSCULAR HGB CONC 33.1 g/dl (31.0-37.0); MEAN PLATELET VOLUME 9.2 fl (7.0-11.0); MONO # 0.3 (0.1-0.6); MONO % 5.6 % (1.0-6.0); RBC 2.72 10^6/uL (3.5-6.1); RED CELL DISTRIBUTION WIDTH 14.8 % (11.5-14.5); WHITE BLOOD COUNT 5.2 10^3/uL (4.5-11.0)
[2018-07-13] MEDS: Insulin Reg-LOW-Coverage SC SCH ×2 (07:16→12:13)
[2018-07-13 07:21] LABS: ALB/GLOB RATIO 1.1 (1.1-1.8); ALBUMIN 3.2 g/dL (3.0-4.8); CALCIUM 8.8 mg/dL (8.4-10.5)
[2018-07-13] MEDS: Lidocaine 5% Patch TD SCH (10:22)
[2018-07-13] MEDS: POLYETHYLENE GLYCOL 3350 17 GM/Dose PACKET PO SCH (10:23)
[2018-07-13] MEDS: Cholecalciferol 1,000 INTLU TAB PO SCH (10:24)
[2018-07-13 10:29] VITALS: BP 118/68; PULSE 74
--- NOTE | 2018-07-13 13:29 | CP.PCM.DIS ---
<Angel Mccrary - Last Filed: 07/13/18 13:11> Provider - Provider Date of Admission: 07/05/18 20:18 Attending physician: Tanvir Marcos MD Primary care physician: Dr. Moreland Consults: 07/05/18 23:33 Nursing Referral for Wound Care Routine Comment: Physician Instructions: Reason For Exam: Eval 07/05/18 23:34 Nursing Referral for Palliative Care Routine Comment: Physician Instructions: Reason For Exam: Eval 07/06/18 00:25 Social Work Referral Routine Comment: Eval Physician Instructions: Reason For Exam: Eval 07/13/18 06:49 Email Operations Manager [Case Management Referral] Routine Comment: Physician Instructions: Reason For Exam: SN for med and dis mgt, home PT for strengthening. Reason for Referral: Discharge Planning Time Spent in preparation of Discharge (in minutes): 35 Hospital Course - Lab Results Lab Results: Most Recent Lab Values WBC 5.2 10^3/uL (4.5-11.0) 07/13/18 05:45 RBC 2.72 10^6/uL (3.5-6.1) L 07/13/18 05:45 Hgb 8.4 g/dL (14.0-18.0) L 07/13/18 05:45 Hct 25.4 % (42.0-52.0) L 07/13/18 05:45 MCV 93.4 fl (80.0-105.0) 07/13/18 05:45 MCH 30.9 pg (25.0-35.0) 07/13/18 05:45 MCHC 33.1 g/dl (31.0-37.0) 07/13/18 05:45 RDW 14.8 % (11.5-14.5) H 07/13/18 05:45 Plt Count 222 10^3/uL (120.0-450.0) 07/13/18 05:45 MPV 9.2 fl (7.0-11.0) 07/13/18 05:45 Gran % 69.7 % (50.0-68.0) H 07/13/18 05:45 Lymph % (Auto) 18.9 % (22.0-35.0) L 07/13/18 05:45 Bollinger % (Auto) 5.6 % (1.0-6.0) 07/13/18 05:45 Eos % (Auto) 5.2 % (1.5-5.0) H 07/13/18 05:45 Baso % (Auto) 0.6 % (0.0-3.0) 07/13/18 05:45 Gran # 3.61 (1.4-6.5) 07/13/18 05:45 Lymph # (Auto) 1.0 (1.2-3.4) L 07/13/18 05:45 Bollinger # (Auto) 0.3 (0.1-0.6) 07/13/18 05:45 Eos # (Auto) 0.3 (0.0-0.7) 07/13/18 05:45 Baso # (Auto) 0.03 K/mm3 (0.0-2.0) 07/13/18 05:45 Sodium 139 mmol/L (132-148) 07/13/18 05:45 Potassium 4.3 mmol/L (3.6-5.0) 07/13/18 05:45 Chloride 101 mmol/L (98-107) 07/13/18 05:45 Carbon Dioxide 33 mmol/L (21-33) 07/13/18 05:45 Anion Gap 9 (10-20) L 07/13/18 05:45 BUN 48 mg/dL (7-21) H 07/13/18 05:45 Creatinine 1.4 mg/dl (0.8-1.5) 07/13/18 05:45 Est GFR ( Amer) 58 07/13/18 05:45 Est GFR (Non-Af Amer) 48 07/13/18 05:45 POC Glucose (mg/dL) 123 mg/dL (65-110) H 07/13/18 05:11 Random Glucose 104 mg/dL (70-110) 07/13/18 05:45 Calcium 8.8 mg/dL (8.4-10.5) 07/13/18 05:45 Total Bilirubin 0.3 mg/dL (0.2-1.3) 07/13/18 05:45 AST 29 U/L (17-59) 07/13/18 05:45 ALT 27 U/L (7-56) 07/13/18 05:45 Alkaline Phosphatase 86 U/L (38-126) 07/13/18 05:45 Total Protein 6.2 g/dL (5.8-8.3) 07/13/18 05:45 Albumin 3.2 g/dL (3.0-4.8) 07/13/18 05:45 Globulin 3.0 gm/dL 07/13/18 05:45 Albumin/Globulin Ratio 1.1 (1.1-1.8) 07/13/18 05:45 - Hospital Course Hospital Course: Angel Mccrary, PGY-1 Discharge Summary for Hospitalist Service 88 M PMHx Glaucoma, CAD s/p CABG (2013), 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 Lumbosacral xrays were ordered and showed no acute fractures. Degenerative spondylosis was noted. Patient was on pain control of morphine, percocet, motrin as well as Lidoderm patch and Gabapentin. Patient was placed on fall precautions. Vit D level was found to be 51 and placed on supplementation. For patient's HTN, patient was monitored and continued on home meds Norvasc and COzaar. For patient's DM, carb consistent diet and sliding scale were utilized. Patient's anemia was stable. For Hx Prostate CA s/p cystoscopy with laser vaporization of prostate, patient was recommended to followup with his oncologist at [place] and continue Prednisone and Tamsolusin. For Hx of CAD s/p CABG, patient was continued on home aspirin and Lipitor. Patient received Lovenox and Protonix for GI/DVT prophylaxis. Patient was instructed to follow up with primary physician to recommend pain management doctor. Patient was interested in medical marijuana, but we reiterated that we are unable to provide it. Patient understood instructions and all questions were answered in detail to patient satisfaction. Patient has been participating in acute rehab while in TCU and has been able to participate with walker. Patient's son is also at home and will come pick patient up this afternoon. He will have [facility] services. Patient seen, case reviewed and plan approved by Dr. Simon. Discharge Exam - Head Exam Head Exam: ATRAUMATIC, NORMAL INSPECTION, NORMOCEPHALIC - Additional Findings Additional findings: - Head Exam Head Exam: ATRAUMATIC, NORMAL INSPECTION, NORMOCEPHALIC - Eye Exam Eye Exam: EOMI, PERRL - ENT Exam ENT Exam: Mucous Membranes Moist - Neck Exam Neck Exam: Full ROM - Respiratory Exam Respiratory Exam: Clear to Ausculation Bilateral, NORMAL BREATHING PATTERN - Cardiovascular Exam Cardiovascular Exam: REGULAR RHYTHM, +S1, +S2 - GI/Abdominal Exam GI & Abdominal Exam: Soft, Normal Bowel Sounds - Extremities Exam Extremities Exam: absent: Pedal Edema - Neurological Exam Neurological Exam: Alert, Awake, Oriented x3 Neuro motor strength exam: Left Upper Extremity: 5, Right Upper Extremity: 5, Left Lower Extremity: 5, Right Lower Extremity: 5 - Psychiatric Exam Psychiatric exam: Normal Affect, Normal Mood - Skin Skin Exam: Dry, Intact Discharge Plan - Discharge Medications Prescriptions: RX: Cholecalciferol [Vitamin D 1000 IU] 1,000 intlu PO DAILY #30 tab RX: Docusate [Colace] 100 mg PO BID PRN #14 cap PRN Reason: Constipation RX: Lidocaine 5% [Lidoderm] 1 ea TD DAILY #10 patch - Follow Up Plan Condition: GOOD Disposition: HOME/ ROUTINE Patient education suggested?: Yes Instructions: Preventing Falls in the Older Adult, High Blood Pressure (DC), Low Back Pain (DC), Diabetes Type 2 (DC) Additional Instructions: Please follow up with your primary care physician Dr. Moreland and oncologist Dr. Vieira within 1 week. Your PCP can recommend a mirror painter. Please continue to take your medications as directed. Please rise from bed and ambulate slowly and with care at your tolerated pace with your walker. If your symptoms return or worsen, please visit nearest emergency department <Abraham Simon - Last Filed: 07/13/18 13:53> Provider - Provider Date of Admission: 07/05/18 20:18 Attending physician: Tanvir Marcos MD Consults: 07/05/18 23:33 Nursing Referral for Wound Care Routine Comment: Physician Instructions: Reason For Exam: Eval 07/05/18 23:34 Nursing Referral for Palliative Care Routine Comment: Physician Instructions: Reason For Exam: Eval 07/06/18 00:25 Social Work Referral Routine Comment: Eval Physician Instructions: Reason For Exam: Eval 07/13/18 06:49 Email Operations Manager [Case Management Referral] Routine Comment: Physician Instructions: Reason For Exam: SN for med and dis mgt, home PT for strengthening. Reason for Referral: Discharge Planning Hospital Course - Lab Results Lab Results: Most Recent Lab Values WBC 5.2 10^3/uL (4.5-11.0) 07/13/18 05:45 RBC 2.72 10^6/uL (3.5-6.1) L 07/13/18 05:45 Hgb 8.4 g/dL (14.0-18.0) L 07/13/18 05:45 Hct 25.4 % (42.0-52.0) L 07/13/18 05:45 MCV 93.4 fl (80.0-105.0) 07/13/18 05:45 MCH 30.9 pg (25.0-35.0) 07/13/18 05:45 MCHC 33.1 g/dl (31.0-37.0) 07/13/18 05:45 RDW 14.8 % (11.5-14.5) H 07/13/18 05:45 Plt Count 222 10^3/uL (120.0-450.0) 07/13/18 05:45 MPV 9.2 fl (7.0-11.0) 07/13/18 05:45 Gran % 69.7 % (50.0-68.0) H 07/13/18 05:45 Lymph % (Auto) 18.9 % (22.0-35.0) L 07/13/18 05:45 Bollinger % (Auto) 5.6 % (1.0-6.0) 07/13/18 05:45 Eos % (Auto) 5.2 % (1.5-5.0) H 07/13/18 05:45 Baso % (Auto) 0.6 % (0.0-3.0) 07/13/18 05:45 Gran # 3.61 (1.4-6.5) 07/13/18 05:45 Lymph # (Auto) 1.0 (1.2-3.4) L 07/13/18 05:45 Bollinger # (Auto) 0.3 (0.1-0.6) 07/13/18 05:45 Eos # (Auto) 0.3 (0.0-0.7) 07/13/18 05:45 Baso # (Auto) 0.03 K/mm3 (0.0-2.0) 07/13/18 05:45 Sodium 139 mmol/L (132-148) 07/13/18 05:45 Potassium 4.3 mmol/L (3.6-5.0) 07/13/18 05:45 Chloride 101 mmol/L (98-107) 07/13/18 05:45 Carbon Dioxide 33 mmol/L (21-33) 07/13/18 05:45 Anion Gap 9 (10-20) L 07/13/18 05:45 BUN 48 mg/dL (7-21) H 07/13/18 05:45 Creatinine 1.4 mg/dl (0.8-1.5) 07/13/18 05:45 Est GFR ( Amer) 58 07/13/18 05:45 Est GFR (Non-Af Amer) 48 07/13/18 05:45 POC Glucose (mg/dL) 123 mg/dL (65-110) H 07/13/18 05:11 Random Glucose 104 mg/dL (70-110) 07/13/18 05:45 Calcium 8.8 mg/dL (8.4-10.5) 07/13/18 05:45 Total Bilirubin 0.3 mg/dL (0.2-1.3) 07/13/18 05:45 AST 29 U/L (17-59) 07/13/18 05:45 ALT 27 U/L (7-56) 07/13/18 05:45 Alkaline Phosphatase 86 U/L (38-126) 07/13/18 05:45 Total Protein 6.2 g/dL (5.8-8.3) 07/13/18 05:45 Albumin 3.2 g/dL (3.0-4.8) 07/13/18 05:45 Globulin 3.0 gm/dL 07/13/18 05:45 Albumin/Globulin Ratio 1.1 (1.1-1.8) 07/13/18 05:45 Attending/Attestation - Attestation I have personally seen and examined this patient.: Yes I have fully participated in the care of the patient.: Yes I have reviewed all pertinent clinical information, including history, physical exam and plan: Yes
== END 2018-07-13 14:49 | disposition home health service (06) | DRG 543 ==
LOC: TRCU 20:18
PROVIDERS: ADMIT Internal Medicine; ATTEND Internal Medicine
PROC: F07Z9FZ Gait Training/Functional Ambulation Treatment using Assistive, Adaptive, Supportive or Protective Equipment (ICD-10-PCS; principal; 2018-07-06)
PROC: F07M6ZZ Therapeutic Exercise Treatment of Musculoskeletal System - Whole Body (ICD-10-PCS; 2018-07-06)
PROC: F08Z1ZZ Dressing Techniques Treatment (ICD-10-PCS; 2018-07-06)
PROC: F08Z2ZZ Grooming/Personal Hygiene Treatment (ICD-10-PCS; 2018-07-06)
PROC: F08Z0ZZ Bathing/Showering Techniques Treatment (ICD-10-PCS; 2018-07-06)
PROC: F08Z4ZZ Home Management Treatment (ICD-10-PCS; 2018-07-06)
DX: C79.51 Secondary malignant neoplasm of bone (principal); I13.0 Hypertensive heart and chronic kidney disease with heart failure and stage 1 through stage 4 chronic kidney disease, or unspecified chronic kidney disease; D64.9 Anemia, unspecified; E11.22 Type 2 diabetes mellitus with diabetic chronic kidney disease; E78.00 Pure hypercholesterolemia, unspecified; H40.9 Unspecified glaucoma; I25.10 Atherosclerotic heart disease of native coronary artery without angina pectoris; I50.9 Heart failure, unspecified; J45.909 Unspecified asthma, uncomplicated; M47.9 Spondylosis, unspecified; M54.30 Sciatica, unspecified side; N18.3 Chronic kidney disease, stage 3 (moderate); R29.6 Repeated falls; Z80.3 Family history of malignant neoplasm of breast; Z80.42 Family history of malignant neoplasm of prostate; Z83.3 Family history of diabetes mellitus; Z85.46 Personal history of malignant neoplasm of prostate; Z87.891 Personal history of nicotine dependence; Z92.3 Personal history of irradiation; Z95.1 Presence of aortocoronary bypass graft; Z95.2 Presence of prosthetic heart valve

== ENCOUNTER 2018-09-01 11:03 | Emergency (ER) | payer MEDICARE ==
[2018-09-01 11:04] VITALS: PULSE 110; BMI 20.9
[2018-09-01] MEDS ORDERED: Lidocaine 5% Patch TD ONE (11:30)
--- NOTE | 2018-09-01 11:32 | ED PDOC ---
Arrival/HPI - General Chief Complaint: Back Pain Historian: Patient - History of Present Illness Narrative History of Present Illness (Text): 09/01/18 11:27 88 year old male, whose past medical history includes includes CAD s/p CABG (2013), prostate cancer with lumbar metastasis, sciatica, disc disease, diabetes, and CKD, presents to the emergency department complaining of chronic lower back pain that worsened over the past 2 months. He says the pain is more towards the left side of his back and describes it as a painful "sting." He notes he takes ibuprofen with little to no improvement. Patient was admitted to [facility] on 07/02/18 for similar complaints. He also notes associated generalized weakness, has trouble getting up, and loss of motor function in his right leg. Patient denies any fevers, chills, chest pain, shortness of breath, abdominal pa in, nausea, vomiting, diarrhea, neck pain, urinary symptoms, headache, dizziness, or any other complaint. PMD: Dr. Moreland Oncologist: Dr. Garrison at [facility] Time/Duration: > month (2 months) Symptom Onset: Gradual Symptom Course: Worsening Activities at Onset: Light Context: Home Past Medical History - Provider Review Nursing Documentation Reviewed: Yes - Past History Past History: Non-Contributing - Infectious Disease Hx of Infectious Diseases: None - Tetanus Immunization Tetanus Immunization: Unknown - Past Medical History Past Medical History: Non-Contributing - Cardiac Hx Cardiac Disorders: Yes (s/p CABG, 2015 nbi, valve replacement) - Pulmonary Hx Respiratory Disorders: Yes Hx Asthma: Yes - Neurological Hx Neurological Disorder: Yes Other/Comment: sciatic nerve pain radiates down both legs - HEENT Hx HEENT Disorder: Yes (reading glasses) Hx Glaucoma: Yes Other/Comment: [facility] uses b/l hearing aids which pt left at home - Renal Hx Renal Disorder: Yes (stage 3) - Endocrine/Metabolic Hx Diabetes Mellitus Type 2: Yes - Hematological/Oncological Hx Blood Disorders: Yes Hx Anemia: Yes (blood transfusion) Hx Cancer: Yes (dx 1 yr ago w/prostate ca w/mets) Hx Metastasis: Yes (lumbar spine) Other/Comment: pt dx with prostate ca about 1 yr ago with mets to lumbar spine, at [facility], pt was put on zitiga 2 pills a day and psa was 24 now is 1.3 as of last week. pt has been treated with hormone injections x3. pt completed 10 palliative radiation treatments at [facility] on 05/18/18. The radiation treatment affected the sciatic nerve causing back pain which has been worsening. This was a possible side effect as was explained to pt by oncologist - Integumentary Hx Dermatological Disorder: Yes Other/Comment: brown skin discoloration lower r abd, dry red scab to right elbow, thick dry toenails, dry skin to feet, multiple small skin discolorations both legs, stage 1 sacral dry wound 2cm x 1.5cm - Musculoskeletal/Rheumatological Hx Falls: Yes - Gastrointestinal Hx Gastrointestinal Disorders: No - Genitourinary/Gynecological Hx Genitourinary Disorders: Yes (retention) Hx Reproductive Disorders: Yes - Psychiatric Hx Psychophysiologic Disorder: No Hx Substance Use: No - Surgical History Other/Comment: t&a age 7, cardiac cath 2014, 10/11/17 cystoscope laser vaporization of prostate by dr lamb - Anesthesia Hx Anesthesia: Yes Hx Anesthesia Reactions: No Hx Malignant Hyperthermia: No - Suicidal Assessment Feels Threatened In Home Enviroment: No Family/Social History - Physician Review Nursing Documentation Reviewed: Yes Family/Social History: No Known Family HX Smoking Status: Former Smoker Hx Alcohol Use: No Hx Substance Use: No Allergies/Home Meds Allergies/Adverse Reactions: Allergies No Known Allergies Allergy (Verified 07/06/18 04:26) Home Medications: Home Meds Medication Instructions Recorded Confirmed Atorvastatin Calcium [Lipitor] 20 mg PO QPM 10/12/14 07/06/18 Aspirin [Ecotrin] 81 mg PO DAILY 02/10/16 07/06/18 Tamsulosin [Flomax] 0.4 mg PO BID 05/18/18 07/06/18 amLODIPine [Norvasc] 5 mg PO DAILY 05/18/18 07/06/18 Latanoprost 0.005% Opht [Xalatan 1 drop EACHEYE HS 05/21/18 07/06/18 Opht] metFORMIN [glucOPHAGE] 500 mg PO ACBD 05/21/18 07/06/18 Gabapentin [Neurontin] 300 mg PO Q8 07/02/18 07/06/18 Niacin [Plain Niacin] 500 mg PO DAILY 07/02/18 07/06/18 Zitiga 2 tab PO DAILY 07/02/18 07/06/18 predniSONE [predniSONE Tab] 5 mg PO DAILY 07/02/18 07/06/18 Review of Systems - Physician Review All systems were reviewed & negative as marked: Yes - Review of Systems Constitutional: Other (generalized weakness). absent: Fevers Eyes: absent: Vision Changes Respiratory: absent: SOB, Cough Cardiovascular: absent: Chest Pain Gastrointestinal: absent: Abdominal Pain, Diarrhea, Nausea, Vomiting Genitourinary Male: absent: Dysuria Musculoskeletal: Back Pain (lower left back pain ), Other (right leg weakness). absent: Neck Pain Neurological: absent: Headache, Dizziness Physical Exam Vital Signs Reviewed: Yes Temperature: Afebrile Blood Pressure: Hypertensive Pulse: Regular Respiratory Rate: Normal Appearance: Positive for: Well-Appearing, Non-Toxic, Comfortable Pain Distress: None Mental Status: Positive for: Alert and Oriented X 3 - Systems Exam Head: Present: Atraumatic, Normocephalic Pupils: Present: PERRL Extroacular Muscles: Present: EOMI Conjunctiva: Present: Normal Mouth: Present: Dry. No: Moist Mucous Membranes Neck: Present: Normal Range of Motion Respiratory/Chest: Present: Clear to Auscultation, Decreased Breath Sounds (diminshed breath sounds bilaterally). No: Respiratory Distress, Accessory Muscle Use Cardiovascular: Present: Murmurs (systolic ejection murmur), Normal S1, S2 Abdomen: Present: Other (abdomen soft). 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 No: Cyanosis, Edema Lower Extremity: No: Edema, Capillary Refill < 2 s (more than 2 seconds capillary refill ) Neurological: Present: GCS=15, CN II-XII Intact, Speech Normal Skin: Present: Warm, Dry, Normal Color. No: Rashes Psychiatric: Present: Alert, Oriented x 3, Normal Insight, Normal Concentration Medical Decision Making ED Course and Treatment: 09/01/18 11:36 Impression: 88 year old male who presents to the emergency department complaining of lower back pain. Differential Diagnosis included but are not limited to: Compression fracture Metastases Tethered Core Plan: -- VBG -- Lumbar spine CT w/o contrast -- Labs -- Chest X-ray -- Lidoderm -- IV Fluids -- Toradol -- Urinalysis -- Reassess and disposition Prior Visits: Notes and results from previous visits were reviewed. Progress Notes: 09/01/18 11:39 Labs reviewed with no leukcytosis noted, but anemia of 9.9 which is at baseline. Lumbar spine pending. 09/01/18 13:17 Patient reassessed and feels better. PO challenge initiated. 09/01/18 14:32 - Lab Interpretations I have reviewed the lab results: Yes - RAD Interpretation Narrative RAD Interpretations (Text): 09/01/18 13:01 Chest X-ray reviewed by radiologist, shows: IMPRESSION: No active disease. 09/01/18 13:[address] reviewed by me, shows: IMPRESSION: Pathologic fracture of the L4 vertebral body with a small amount of epidural soft tissue extension. Multiple sclerotic metastases as described. Questionable lytic lesion in the sacralized left L5 transverse process. No other fracture. Disc bulge resulting in central spinal stenosis and bilateral neural foraminal stenosis at L3-4 and L4-5. Left hydroureteronephrosis of uncertain etiology. Woodenware Assembler: Radiologist - Scribe Statement The provider has reviewed the documentation as recorded by the Luiibangeles Swann Provider Scribe Attestation: All medical record entries made by the Scribe were at my direction and personally dictated by me. I have reviewed the chart and agree that the record accurately reflects my personal performance of the history, physical exam, medical decision making, and the department course for this patient. I have also personally directed, reviewed, and agree with the discharge instructions and disposition. Disposition/Present on Arrival - Present on Arrival Any Indicators Present on Arrival: No History of DVT/PE: No History of Uncontrolled Diabetes: No Urinary Catheter: No History of Decub. Ulcer: No History Surgical Site Infection Following: None - Disposition Have Diagnosis and Disposition been Completed?: Yes Diagnosis: Compression fracture of L4 vertebra Disposition: HOME/ ROUTINE Disposition Time: 14:04 Patient Plan: Discharge Patient Problems: Current Active Problems Problem Status Onset Compression fracture of L4 vertebra Acute Condition: IMPROVED Print Language: GREENLANDIC Additional Instructions: All medical record entries made by the Scribe were at my direction and personally dictated by me. I have reviewed the chart and agree that the record accurately reflects my personal performance of the history, physical exam, medical decision making, and the department course for this patient. I have also personally directed, reviewed, and agree with the discharge instructions and disposition. Please follow up with your PCP in 3-5 days Please find time to schedule an appointment with a lead based paint technician Please DO NOT take more than 3 Motrin a day. If you must take Motrin, take it with food Prescriptions: Ibuprofen [Motrin] 600 mg PO Q6H #12 tab Lidocaine 5% [Lidoderm] 1 patch TP Q12 #5 patch Referrals: Jose Moreland MD [Family Provider] - Follow up with primary Son Arroyo MD [Medical Doctor] - Follow up with primary Forms: ICONOGRAFICO (Mozambican)
[2018-09-01] MEDS ORDERED: Sodium Chloride 0.9% 1,000 ML IV STA (11:33)
[2018-09-01 11:37] VITALS: RESP 18
[2018-09-01 11:42] LABS: PH,URINE 6.5 (4.7-8.0); URINE BILIRUBIN NEGATIVE (NEGATIVE); URINE BLOOD MODERATE (NEGATIVE); URINE GLUCOSE (UA) 250 mg/dL (NEGATIVE); URINE LEUKOCYTE ESTERASE NEGATIVE Leu/uL (NEGATIVE); URINE PROTEIN 100 mg/dL (<30 mg/dL); URINE UROBILINOGEN 0.2 E.U./dL (<1 E.U./dL)
[2018-09-01 11:44] LABS: URINE APPEARANCE CLEAR (CLEAR); URINE COLOR YELLOW (YELLOW)
[2018-09-01] MEDS ORDERED: Labetalol 5 mg/ml Inj 20ML IV STA (12:00)
[2018-09-01 12:06] LABS: URINE WBC 0 - 2 /hpf (0-6)
[2018-09-01 12:07] LABS: URINE BACTERIA FEW /hpf
[2018-09-01] MEDS ORDERED: Labetalol 5mg/ml (4ml) IV STA (12:12)
[2018-09-01 12:19] LABS: BASO # 0.02 K/mm3 (0.0-2.0); BASO % 0.3 % (0.0-3.0); EOS # 0.2 (0.0-0.7); EOS % 2.5 % (1.5-5.0); HEMOGLOBIN 9.9 g/dL (14.0-18.0); LYMPH # 0.8 (1.2-3.4); LYMPH % 12.9 % (22.0-35.0); MEAN CELL VOLUME 91.3 fl (80.0-105.0); MEAN CORPUSCULAR HEMOGLOBIN 29.8 pg (25.0-35.0); MEAN CORPUSCULAR HGB CONC 32.7 g/dl (31.0-37.0); MONO # 0.3 (0.1-0.6); MONO % 4.2 % (1.0-6.0); RBC 3.32 10^6/uL (3.5-6.1); RED CELL DISTRIBUTION WIDTH 15.2 % (11.5-14.5); WHITE BLOOD COUNT 6.4 10^3/uL (4.5-11.0)
[2018-09-01 12:27] LABS: VENOUS BLOOD GAS BASE EXCESS 13.3 mmol/L (0.0-2.0); VENOUS BLOOD GAS PO2 29 mm/Hg (30-55); VENOUS BLOOD PH 7.44 (7.32-7.43)
[2018-09-01 12:28] LABS: INR 1.04; PARTIAL THROMBOPLASTIN TIME 35.4 Seconds (26.9-38.3); PROTHROMBIN TIME 11.7 SECONDS (9.4-12.5)
[2018-09-01 12:30] LABS: ALB/GLOB RATIO 1.1 (1.1-1.8); ALBUMIN 3.6 g/dL (3.0-4.8); ALT/SGPT 20 U/L (7-56); AST/SGOT 24 U/L (17-59); BLOOD UREA NITROGEN 19 mg/dL (7-21); CALCIUM 9.3 mg/dL (8.4-10.5); GFR NON-AFRICAN AMERICAN > 60
[2018-09-01] MEDS ORDERED: Potassium Chloride 40 mEq/30 ml LIQ UD PO STA (12:36)
--- NOTE | 2018-09-01 12:36 | RAD ---
Date of service: 09/01/2018 HISTORY: sob COMPARISON: 07/02/2018 FINDINGS: LUNGS: No active pulmonary disease. PLEURA: No significant pleural effusion identified, no pneumothorax apparent. CARDIOVASCULAR: No aortic atherosclerotic calcification present. Normal cardiac size. No congestive change. Sternotomy wires. CABG. OSSEOUS STRUCTURES: No significant abnormalities. VISUALIZED UPPER ABDOMEN: Normal. OTHER FINDINGS: None. IMPRESSION: No active disease.
[2018-09-01 12:40] LABS: TROPONIN I 0.02 ng/mL
[2018-09-01] MEDS ORDERED: HYDROmorphone 1 mg/ml ISec IVP STA (12:59)
--- NOTE | 2018-09-01 13:49 | CT ---
Date of service: 09/01/2018 PROCEDURE: CT Lumbar Spine without contrast HISTORY: h/o prostate cancer lower back pain COMPARISON: None available. TECHNIQUE: Axial computed tomography images were obtained of the lumbar spine without the use of intravenous contrast. Coronal and sagittal reformatted images were created and reviewed. Radiation dose: Total exam DLP = 397.26 mGy-cm. This CT exam was performed using one or more of the following dose reduction techniques: Automated exposure control, adjustment of the mA and/or kV according to patient size, and/or use of iterative reconstruction technique. FINDINGS: VERTEBRAE: There is compression fracture of the L4 vertebra, age indeterminate. There is extensive lysis of the L4 vertebral body suggesting that this most likely represents a pathologic compression fracture due to lytic neoplasm. There is a small amount of epidural soft tissue protruding dorsally into the epidural space, without resulting cord compression at this level. No other fractures are identified there are 2 sclerotic lesions seen in the left iliac bone, both visualized on series 2, image 86 these are also seen on series 602, image 75 and image 113. There is questionable lytic lesion in the left L5 sacralized transverse process, versus metabolic osteopenia. There is a ill-defined sclerotic lesion in the S1 vertebral body. There is a small sclerotic lesion in the T12 vertebral body. There is a very small sclerotic lesion in the L1 vertebral body. Consistent with metastasis from patient's known prostate malignancy. DISCS/SPINAL CANAL/NEURAL FORAMINA: There is diffuse disc bulge with calcification at L L3-4 and L4-5. In conjunction with facet hypertrophy and ligamentum flavum hypertrophy, this results in spinal stenosis at these levels. There is moderate to severe bilateral neural foraminal stenosis at L3-4 and L4-5. There is left hydroureteronephrosis of uncertain etiology. PARASPINAL SOFT TISSUES: There is left hydroureteronephrosis of uncertain etiology. OTHER FINDINGS: None. IMPRESSION: Pathologic fracture of the L4 vertebral body with a small amount of epidural soft tissue extension. Multiple sclerotic metastases as described. Questionable lytic lesion in the sacralized left L5 transverse process. No other fracture. Disc bulge resulting in central spinal stenosis and bilateral neural foraminal stenosis at L3-4 and L4-5. Left hydroureteronephrosis of uncertain etiology.
[2018-09-01 16:07] VITALS: TEMP 97.6
[2018-09-01 19:50] VITALS: BP 184/73; PULSE 70; O2SAT 97
== END 2018-09-01 20:56 | disposition home or self-care (01) ==
LOC: ED 11:03
DX: M48.56XA Collapsed vertebra, not elsewhere classified, lumbar region, initial encounter for fracture (principal); I25.10 Atherosclerotic heart disease of native coronary artery without angina pectoris; C61 Malignant neoplasm of prostate; N18.9 Chronic kidney disease, unspecified; Z95.1 Presence of aortocoronary bypass graft; E11.9 Type 2 diabetes mellitus without complications; Z87.891 Personal history of nicotine dependence; Z85.46 Personal history of malignant neoplasm of prostate
CPT/HCPCS: 71045; 72131; 80053; 81001; 82803; 84484; 85025; 85610; 85730; 96361; 96374; 96375; 99283; J1885; J3480; J7030